=== PATIENT | male | born 2000 | race Caucasian/White ===

== ENCOUNTER → 2019-04-08 | Outpatient (CLI) | payer OTHER, SELFPAY ==
--- NOTE | 2019-04-08 10:24 | MRI_ITS ---
STUDY: MRI BILATERAL HIPS T PELVIS REASON FOR EXAM: Bilateral hip/sacroiliac pain, psoriatic arthritis for 10 years. TECHNIQUE: Standardized fat and water weighted pulse sequences were obtained in all 3 orthogonal planes. COMPARISON: Radiograph report 01/30/2012. FINDINGS: RIGHT HIP Normal hip joint without articular joint space narrowing. Normal right acetabulum. Normal right labrum. There is a small herniation pit at the lateral aspect of the right femoral head (inversion recovery coronal image 15). Normal right femoral neck and intratrochanteric region. Normal right gluteus minimus, medius and iliopsoas tendons and distal insertions. Normal right superior and inferior pubic rami. Normal right pubic symphysis. Normal right ischial tuberosity. Normal origin of the right hamstring tendons. There is osseous erosion of the right ilium adjacent to the sacroiliac joint (T1 axial image 14) with periarticular bone edema of the right sacroiliac joint (T2 axial images 9-15). Normal visualized soft tissue structures of the pelvis. LEFT HIP Normal left hip joint without articular joint space narrowing. Normal left acetabulum. Normal left labrum. Normal left femoral head. Normal left femoral neck and intratrochanteric region. Normal left gluteus minimus, medius and iliopsoas tendons and distal insertions. Normal left superior and inferior pubic rami. Normal left pubic symphysis. Normal left ischial tuberosity. Normal origin of the left hamstring tendons. There are small osseous erosions of the left sacroiliac joint (T1 axial image 15) and periarticular bone edema of the left sacroiliac joint (T2 axial images 10-15). Normal visualized soft tissue structures of the pelvis. MRI/Pelvis (Routine) IMPRESSION: Bilateral sacroiliitis with periarticular bone edema. Small herniation pit of the lateral aspect of the right femoral head. Electronically Signed: Allen Adames MD at 11:40 EDT Tel , Service support ,
== END | disposition home or self-care (01) ==
LOC: MRI 10:19
PROVIDERS: Family Provider Nurse Practitioner Family; PCP Nurse Practitioner Family; Referring Provider Internal Medicine Rheumatology; Visit Provider Internal Medicine Rheumatology
DX: M46.1 Sacroiliitis, not elsewhere classified (principal)
CPT/HCPCS: 72195

== ENCOUNTER → 2022-09-25 | Outpatient (CLI) | payer OTHER, SELFPAY ==
--- NOTE | 2022-09-25 15:04 | CT_ITS ---
STUDY: CT MAXILLOFACIAL SINUSES REASON FOR EXAM: Male, 22 years old. L NASAL POLYP RADIATION DOSAGE (If Supplied By Facility): CTDIvol = ( 33.06 ) mGy, DLP = ( 796.66 ) mGycm TECHNIQUE: The patient was scanned in a multi detector CT scanner. High resolution axial imaging was performed without the administration of intravenous contrast material. Sagittal and coronal images were reconstructed. Individualized dose optimization techniques were used for this CT. COMPARISON: None. FINDINGS: FRONTAL SINUSES: Normal aeration, without mucosal inflammatory disease. ETHMOIDAL SINUSES: There is mild mucosal thickening of the bilateral ethmoid sinuses. MAXILLARY SINUSES: There is fluid within the left side maxillary sinus or mucoid material. There is a diminutive appearance of the right maxillary sinus which may be developmental potentially posttraumatic. This is a nearly opacified. This is associated with a irregular appearance of the right side turbinate with a deviated or migrated appearance of the inferior turbinate towards the diminutive appearing wall of the right maxillary sinus. SPHENOIDAL SINUSES: There is mild mucoid thickening of the sphenoid sinuses. There is a narrowed appearance of the ostiomeatal unit on the right side. Normal bilateral middle turbinates. Normal bilateral inferior turbinates. There is rightward spur and nasal deviation which abuts middle turbinate with narrowing of the of the adjacent passageway. There is no visualized acute fracture. The mastoid air cells are clear. Temporomandibular joints are intact. The visualized bilateral orbital contents are normal. CT/Sinus/Facial Bone IMPRESSION: Moderate pansinusitis. Significant rightward nasal deviation and spur narrowing the right nasal passageway. Allowing for mucoid material and underlying smaller associated polyp is not included or excluded. The right side nasal spur abuts the mildly prominent right-sided middle turbinate. Recommend direct visualization. Electronically Signed: Johana Ventura MD at 16:59 EST Reading Location ID and State: [facility] / [place] Tel , Service support ,
== END | disposition home or self-care (01) ==
LOC: CT 14:59
PROVIDERS: PCP Nurse Practitioner Family; Visit Provider Otolaryngology
DX: J33.0 Polyp of nasal cavity (principal)
CPT/HCPCS: 70486

== ENCOUNTER 2025-01-19 16:12 | Emergency (ER) | payer OTHER, SELFPAY ==
[2025-01-19 16:16] VITALS: BP 130/72; PULSE 61; RESP 18; TEMP 36.6; O2SAT 100; BMI 19.1
[2025-01-19] MEDS: Ketorolac 15 MG/ML Vial IV (16:48)
--- NOTE | 2025-01-19 16:52 | ED.VIS.BACK ---
HPI History of Present Illness Chief Complaint: Back Informant: patient and spouse/S.O. Narrative Narrative: Presents ED concern for kidney stone. 2 days ago he states had 1 bout of nausea vomiting x 1 shortly afterwards felt pain left flank. Does not radiate. No troubles urinating. States had a temp of 100.6 orally at that time. No cough no dysuria no myalgias. Use ibuprofen yesterday. Pain has been constant. Sometimes worse with movement. Denies history of kidney stones. Denies history of gastric ulcers or kidney injury. Prior similar symptoms: No PFSH PFSH Medical History no medical history Allergy/AdvReac Type Severity Reaction Status Date / Time No Known Allergies Allergy Verified 01/19/25 16:16 Family History no significant family his Surgical History no surgical history Social History household members: spouse housing: house Smoking Status: Never smoker ROS ROS ED Constitutional Constitutional ED: Reports fever(s); Denies chills or sweats ENT ENT ED: Denies sore throat Cardiovascular Cardiovascular: Denies chest pain, leg edema, palpitations or racing heartbeat Respiratory/Chest Respiratory/Chest: Denies cough, dyspnea or dyspnea on exertion Gastrointestinal Gastrointestinal: Denies abdominal pain, diarrhea, nausea or vomiting Genitourinary Genitourinary ED: Denies dysuria, hematuria or urinary frequency Musculoskeletal Musculoskeletal: Reports back pain; Denies extremity pain or neck pain Integumentary Denies rash or wounds Neurologic Neurologic: Denies headache(s), paresthesias or weakness EXAM Physical Exam Const Vital Signs: 01/19/25 16:16 01/19/25 18:15 01/19/25 18:53 Temperature 98 F 97.9 F Temperature Source Oral Pulse Rate 61 75 75 Respiratory Rate 18 18 18 Blood Pressure 130/72 H 107/82 H 107/82 H Blood Pressure Mean 91 90 90 Pulse Ox 100 98 98 Oxygen Delivery Method Room Air Positive well nourished and well developed General Appearance ED: well developed and NAD HEENT Reports moist mucous membranes normocephalic and atraumatic Eyes General Eye ED: Yes normal appearance of both eyes Neck full ROM Chest Wall Chest: Negative for tenderness Resp normal respiratory effort and normal air movement Effort and Inspection: symmetric chest movement; Negative for respiratory distress Cardio regular rate, regular rhythm and no murmurs Peripheral Pulses: pulses 2+ throughout GI normal to inspection, nondistended, normoactive bowel sounds and non-tender Palpation: Negative for guarding or rebound tenderness present Back/Spine Back/Spine Narrative: Tender left flank no ecchymosis no rash. Extremity normal to inspection General Extremety ED: Negative for edema or tenderness General Extremity: Negative for edema Neuro oriented x3 and no sensory deficits noted Sensorium / Orientation: awake and alert Skin no rashes or lesions noted and no wounds MDM MDM MDM Narrative Medical decision making narrative: Interventions / MDM: Differential diagnosis: Musculoskeletal pain. Flank pain. Diagnosis considered but do not suspect: Kidney stone however CT negative. Pyelonephritis however CT and urine negative. My EKG interpretation: N/A Imaging independently reviewed and interpreted by myself: CT abdomen pelvis: No acute process moderate colonic stool burden. No kidney stones noted. Also read by radiology. External documents reviewed: N/A Test considered but not ordered:N/A ED course: Nontoxic vital stable. Concern for kidney stones. Renal stone protocol initiated labs urine. IV Toradol. CT scan for further evaluation. Workup negative. CT negative. Reported colonic stool burden. He reports bowel movements every day. Discussed likely musculoskeletal, he will use Tylenol or Motrin as needed. Monitor symptoms. Outpatient follow-up. All questions were answered. Re-evaluation: stable Disposition discussed with patient/family/significant other: Patient and significant other Case discussed with consulting clinician: N/A This note was generated with [employer] dictation software. It may contain incorrect words, spelling, and punctuation that were not noted in checking the note before signing. Lab Data Labs: Laboratory Results - last 24 hr 01/19/25 16:45 WBC 6.9 RBC 4.89 Hgb 14.2 Hct 41.9 MCV 85.7 MCH 29.0 MCHC 33.9 RDW Std Deviation 39.1 RDW Coeff of Ina 12.6 Plt Count 314 MPV 9.8 Immature Gran % (Auto) 0.300 Neut % (Auto) 36.2 L Lymph % (Auto) 35.4 [place] % (Auto) 19.4 H Eos % (Auto) 7.7 H Baso % (Auto) 1.0 Absolute Neuts (auto) 2.5 Absolute Lymphs (auto) 2.45 Nucleated RBC % 0 Differential Comment SCANNED Sodium 137 Potassium 3.9 Chloride 100 Carbon Dioxide 27.4 Anion Gap 10 BUN 14 Creatinine 0.92 Estim Creat Clear Calc 103.75 Est GFR (MDRD) Non-Af 118 BUN/Creatinine Ratio 15.6 Glucose 94 Calcium 9.2 Urine Color Straw Urine Clarity Clear Urine pH 8.0 Ur Specific [place] 1.015 Urine Protein 15 H Urine Glucose (UA) Normal Urine Ketones Negative Urine Occult Blood Negative Urine Nitrite Negative Urine Bilirubin Negative Urine Urobilinogen Normal Ur Leukocyte Esterase Negative Urine RBC 0 SEEN Urine WBC 0 SEEN Ur Squamous Epith Cells 0 SEEN Urine Bacteria 1+ Urine Mucus 0 SEEN Radiography Diagnostic Testing: Clinical Impression(s) from Imaging Studies Abdomen/Pelvis CT 01/19/25 17:10 IMPRESSION: *No acute findings in the abdomen and pelvis. *No evidence of nephrolithiasis or hydronephrosis. *Moderate colonic stool. [facility] Discharge Plan Triage Chief Complaint: Back ED Provider: Cal Powers Dx/Rx/DC Orders Clinical Impression: Left flank pain, Musculoskeletal back pain Instructions: ED Back Sprain/Strain Stand Alone Forms: ED Work / School Excuse Primary Care Provider: Patricia Archer NP Referrals: Patricia Archer NP, [employer]CH[employer]IC-[employer] [Primary Care Provider] - 1-2 Weeks Activity Restrictions/Additional Instructions: CT scan no kidney stones. Labs urine negative. Continue Motrin 600 mg every 6 hours for pain as needed. Follow-up with your doctor. Print Language: [place] Disposition Disposition: Home, Self Care Discharge Date/Time: 01/19/25 18:55
[2025-01-19 17:00] LABS: Mucous, Urine 0 SEEN /hpf (<or=2+); Red Blood Cells-Urine 0 SEEN /hpf (0-5); Squamous Epithelial Cells - UA 0 SEEN /hpf (0-5); White Blood Cells 0 SEEN /hpf (0-5)
[2025-01-19 17:06] LABS: Absolute Lymphocyte Count 2.45 X10^3/uL (0.83-4.51); Absolute Neutrophil Count 2.5 X10^3/uL (2.0-7.7); Basophil# 0.07 X10^3/uL; Eosinophil# 0.53 X10^3/uL; Eosinophils% 7.7 % (0-5); Hematocrit 41.9 % (40-54); Hemoglobin 14.2 g/dL (13.0-16.5); Lymphocyte # 2.45 X10^3/ul (0.83-4.51); Lymphocyte % 35.4 % (19-41); Mean Corp Hgb Conc 33.9 g/dL (32-36); Mean Corpuscular Volume 85.7 fL (80-94); Mean Platelet Vol. 9.8 fl (6.2-12.0); Monocyte# 1.34 X10^3/uL; Monocyte% 19.4 % (0-10); NRBC Flagged by Analyzer 0 % (0-5); Neutrophil # 2.51 X10^3/uL (2.7-7.7); Neutrophil % 36.2 % (47-70); POSITIVE MORPHOLOGY YES; Platelet Count 314 K/mm3 (150-450); RBC Distribution Width CV 12.6 % (11.6-14.6); RBC Distribution Width SD 39.1 fl (35.1-43.9); Red Blood Count 4.89 M/mm3 (4.6-6.2); White Blood Count 6.9 K/mm3 (4.4-11.0)
--- NOTE | 2025-01-19 17:10 | CT_ITS ---
PROCEDURE: ABDOMEN/PELVIS WITHOUT CONT 01/19/2025 REASON FOR EXAM: KIDNEY STONE TECHNIQUE: Abdomen and pelvis CT without intravenous contrast. Noncontrast technique limits evaluation of the abdominal and pelvic viscera. Coronal and Sagittal reconstruction series were provided. One or more dose reduction techniques were used (e.g., Automated exposure control, adjustment of the mA and/or kV according to patient size, use of iterative reconstruction technique). PATIENT PREPARATION: Per protocol ORAL CONTRAST TYPE: None. AMOUNT: mL COMPARISON: None FINDINGS: Lung bases: Unremarkable Liver: Normal size. No obvious mass. Gallbladder: No cholelithiasis or wall thickening. Spleen: Normal size. Pancreas: Normal size. No surrounding inflammation. Adrenals: Unremarkable Kidneys: No urolithiasis. No hydronephrosis. Bladder: Urinary bladder is unremarkable. Reproductive Organs: No pelvic mass. Bowel: Stomach is unremarkable. No bowel dilation or wall thickening. Moderate colonic stool. Appendix: Normal appendix. Lymph nodes: No suspicious adenopathy. Vasculature: The abdominal aorta and IVC contours are normal. Noncontrast technique limits evaluation. Peritoneum / Retroperitoneum: No ascites. No pneumoperitoneum. Bones: No suspicious osseous lesions. Soft tissues are unremarkable. CT/Abdomen/Pelvis without Cont IMPRESSION: *No acute findings in the abdomen and pelvis. *No evidence of nephrolithiasis or hydronephrosis. *Moderate colonic stool. Reading [facility]
[2025-01-19 17:12] LABS: Color, Urine Straw (Yellow); Glucose, Dipstick Normal (Normal); Ketone-Dipstick Negative (Negative); Leukocyte Esterase-Dipstick Negative /ul (Negative); Nitrite-Dipstick Negative (Negative); Occult Blood-Urine Negative /ul (Negative); Protein-Dipstick 15 mg/dl (Negative); Specific Gravity, Urine 1.015 (1.002-1.030); Urine Bilirubin Dipstick Negative (Negative); Urine Clarity Clear (Clear); Urine Urobilinogen Normal (Normal)
[2025-01-19 17:22] LABS: Differential Indicated SCAN CRITERIA MET
[2025-01-19 17:36] LABS: Anion Gap 10 (5-15); BUN 14 mg/dL (4-19); BUN/Creat Ratio 15.6 RATIO (10-20); Calcium,Total 9.2 mg/dL (7.6-11.0); Carbon Dioxide 27.4 mmol/L (21.0-32.0); Chloride 100 mmol/L (98-108); Creatinine, Serum 0.92 mg/dL (0.70-1.20); EST Glomerular Filtration Rate 118 (>60); Estimated Creatinine Clearance 103.75 ml/min (50-250); Glucose 94 mg/dL (70-99); Potassium 3.9 mmol/L (3.3-5.1); Sodium Level 137 mmol/L (133-145)
[2025-01-19 18:11] LABS: Differential Comment SCANNED
[2025-01-19 18:15] VITALS: BP 107/82; PULSE 75; RESP 18; O2SAT 98
[2025-01-19 18:22] LABS: Bacteria 1+ /hpf (None Seen)
[2025-01-19 18:53] VITALS: BP 107/82; PULSE 75; RESP 18; TEMP 36.6; O2SAT 98
== END 2025-01-19 18:55 | disposition home or self-care (01) ==
PROVIDERS: Emergency Provider Emergency Medicine; PCP Nurse Practitioner Family; Visit Provider Emergency Medicine
DX: R10.9 Unspecified abdominal pain (principal); M54.9 Dorsalgia, unspecified
CPT/HCPCS: 74176; 80048; 81001; 85025; 96374; 99282; A4216

== ENCOUNTER → 2025-02-13 | Outpatient (CLI) | payer OTHER, SELFPAY ==
[2025-02-13 15:42] LABS: Absolute Lymphocyte Count 2.49 X10^3/uL (0.83-4.51); Absolute Neutrophil Count 6.3 X10^3/uL (2.0-7.7); Basophil# 0.11 X10^3/uL; Basophil% 0.9 % (0-1); Eosinophil# 1.02 X10^3/uL; Eosinophils% 8.7 % (0-5); Hematocrit 40.1 % (40-54); Hemoglobin 13.5 g/dL (13.0-16.5); Lymphocyte # 2.49 X10^3/ul (0.83-4.51); Lymphocyte % 21.3 % (19-41); Mean Corp Hgb Conc 33.7 g/dL (32-36); Mean Corpuscular Hgb 28.4 pg (27.0-32.0); Mean Corpuscular Volume 84.4 fL (80-94); Mean Platelet Vol. 9.7 fl (6.2-12.0); Monocyte# 1.63 X10^3/uL; NRBC Flagged by Analyzer 0 % (0-5); Neutrophil # 6.33 X10^3/uL (2.7-7.7); Neutrophil % 54.3 % (47-70); POSITIVE DIFFERENTIAL YES; Platelet Count 374 K/mm3 (150-450); RBC Distribution Width CV 12.9 % (11.6-14.6); RBC Distribution Width SD 39.9 fl (35.1-43.9); Red Blood Count 4.75 M/mm3 (4.6-6.2); White Blood Count 11.7 K/mm3 (4.4-11.0)
[2025-02-13 15:59] LABS: Differential Indicated SCAN CRITERIA MET
[2025-02-13 16:11] LABS: ALB/GLOB Ratio 1.1 RATIO (0.9-2.4); AST(SGOT) 13 U/L (<=37); Alanine Aminotransfer ALT/SGPT 10 U/L (<=46); Albumin, Serum 4.2 g/dL (3.5-5.0); Alkaline Phosphatase 98 U/L (40-129); Anion Gap 13 (5-15); BUN 11 mg/dL (4-19); BUN/Creat Ratio 12.2 RATIO (10-20); Calcium,Total 9.8 mg/dL (7.6-11.0); Carbon Dioxide 25.2 mmol/L (21.0-32.0); Chloride 98 mmol/L (98-108); Cholesterol 156 mg/dL (<=200); Creatinine, Serum 0.88 mg/dL (0.70-1.20); EST Glomerular Filtration Rate 122 (>60); Globulin 3.8 g/dL (2.2-4.2); Glucose 81 mg/dL (70-99); High Density Lipoprotein 38 mg/dL; Low Density Lipoprotein Calc. 105 mg/dL; Potassium 3.7 mmol/L (3.3-5.1); Sodium Level 136 mmol/L (133-145); Total Bilirubin 0.34 mg/dL (0.00-1.30); Triglycerides 65 mg/dL; Very Low Density Lipoprotein 13 mg/dL (5-40); cholesterol:hdl ratio screen 4.12
[2025-02-13 16:36] LABS: Platelet Morphology LARGE
[2025-02-16 07:07] LABS: Endomysial Antibody IgA Negative (Negative); Immunoglobulin A 378 mg/dL (90-386); t-Transglutaminase IgA 2 U/mL (0-3)
== END | disposition home or self-care (01) ==
LOC: LAB 13:27
PROVIDERS: PCP Nurse Practitioner Family; Referring Provider Nurse Practitioner Family; Visit Provider Nurse Practitioner Family
DX: Z00.01 Encounter for general adult medical examination with abnormal findings (principal); R10.9 Unspecified abdominal pain
CPT/HCPCS: 36415; 80053; 80061; 82784; 83516; 85025; 86255

== ENCOUNTER → 2025-02-14 | Outpatient (CLI) | payer OTHER, SELFPAY | END | disposition home or self-care (01) | PROVIDERS: PCP Nurse Practitioner Family; Referring Provider Nurse Practitioner Family; Visit Provider Nurse Practitioner Family | DX: R19.7 Diarrhea, unspecified (principal) | CPT/HCPCS: 83630; 87177; 87209; 87493; 87506 ==

== ENCOUNTER 2025-03-02 15:24 | Emergency (ER) | payer OTHER, SELFPAY ==
[2025-03-02 15:24] VITALS: BP 126/89; PULSE 97; RESP 16; TEMP 37.1; O2SAT 100; BMI 16.7
[2025-03-02] MEDS: 0.9% Normal Saline (1000mL) 1,000 ML 1000 ML IV (16:03)
[2025-03-02] MEDS: Ondansetron 4 MG/2 ML Vial IV (16:03)
[2025-03-02 16:14] LABS: Absolute Lymphocyte Count 2.34 X10^3/uL (0.83-4.51); Basophil# 0.09 X10^3/uL; Basophil% 0.4 % (0-1); Eosinophils% 6.2 % (0-5); Lymphocyte # 2.34 X10^3/ul (0.83-4.51); Lymphocyte % 10.3 % (19-41); Mean Corp Hgb Conc 34.2 g/dL (32-36); Mean Corpuscular Hgb 28.6 pg (27.0-32.0); Mean Corpuscular Volume 83.7 fL (80-94); Monocyte# 3.64 X10^3/uL; Monocyte% 16.1 % (0-10); NRBC Flagged by Analyzer 0 % (0-5); Neutrophil # 15.02 X10^3/uL (2.7-7.7); Neutrophil % 66.2 % (47-70); POSITIVE DIFFERENTIAL YES; POSITIVE MORPHOLOGY YES; Platelet Count 632 K/mm3 (150-450); RBC Distribution Width CV 13.2 % (11.6-14.6); RBC Distribution Width SD 40.2 fl (35.1-43.9); Red Blood Count 4.54 M/mm3 (4.6-6.2); White Blood Count 22.7 K/mm3 (4.4-11.0)
--- NOTE | 2025-03-02 16:16 | EDS_ITS ---
HPI History of Present Illness Chief Complaint: Abd Pain Detail of Chief Complaint: Abdominal pain, diarrhea and unintentional weight loss Informant: patient Onset/Context/Timing Onset: Month(s) (Approximately 1 month) Context: Sudden Onset Timing: Intermittent and Waxes and wanes Quality: gnawing discomfort Location: Generalized Current Severity: Mild Maximum Severity: Moderate Worsened by: If he eats or drinks anything Relieved by: Not been Associated Symptoms Associated Symptoms: HPI narrative for complete detail Narrative Narrative: Patient is a 24-year-old male. He has history of psoriatic arthritis on no medication and ankylosing spondylitis who presents with a gnawing generalized abdominal discomfort that started approximate month ago with diarrhea up to 20 times per day. There is no family history of Crohn's or ulcerative colitis. There is a paternal grandmother with history of colon cancer. Age of diagnosis is unknown. Patient presents because of feeling generalized weakness with no energy to get up. He does endorse intermittent orthostatic symptoms. He does endorse thirst and dry mouth. Patient denies decreased urine output. Patient not been able to work since last February 23. Patient does have night sweats. He denies bone pain other than bilateral hip pain due to his psoriatic arthritis. He is on no medication because he was without insurance until recently. He was seen by nurse practitioner at Dr. Odell's office. Note authored by LAM Gomez was reviewed. Patient did have stool studies which were unremarkable other than elevated white count. He is scheduled for a colonoscopy this coming Thursday. Based on her note there is a history of ulcerative colitis in the family. Patient has intermittent headache. He denies double vision blurred vision loss of vision. There is no trouble with his hearing. He denies cardiac or respiratory symptoms. He has had mucus in his stool for some time. He had a colonoscopy approximately 6 years ago because of blood in his stool. To his knowledge it was unremarkable. Prior similar symptoms: Yes Recent Illness/Hospitalization: Yes PFSH PFSH Home Medications ?Medication ?Instructions ?Recorded ?Last Taken ?Type budesonide 9 mg tablet,delayed and 9 mg PO QAM 5 Unknown History extended release amoxicillin 875 mg-potassium 875 mg PO Q12H #14 TABLET S 03/02/25 Unknown Rx clavulanate 125 mg tablet prednisone 20 mg tablet 40 mg (2 x 20 mg) PO DAILY # 20 03/02/25 Unknown Rx TABLETS Allergy/AdvReac Type Severity Reaction Status Date / Time No Known Allergies Allergy Verified 03/02/25 15:24 Social History household members: spouse housing: house Smoking Status: Never smoker ROS ROS ED Constitutional Constitutional ED: Reports sweats and weight loss; Denies chills, fever(s) or subjective Eyes Eyes: Denies blurry vision or change in vision ENT ENT ED: Denies rhinorrhea or sore throat Cardiovascular Cardiovascular: Denies chest pain or palpitations Respiratory/Chest Respiratory/Chest: Denies cough, dyspnea or dyspnea on exertion Gastrointestinal Gastrointestinal: Reports abdominal pain, diarrhea, nausea and other Details: Nausea started past several days. Episode of vomiting this morning. ; Denies constipation, melena or vomiting Genitourinary Genitourinary ED: Denies dysuria, hematuria or urinary frequency Musculoskeletal Musculoskeletal: Reports other Details: Bilateral hip pain due to psoriatic arthritis. ; Denies arthralgias, back pain, myalgias or neck pain Integumentary Denies rash Neurologic Neurologic: Reports weakness; Denies headache(s) or paresthesias Hematologic/Lymphatic Hematologic/Lymphatic: Reports systems reviewed and no addt'l complaints, except as documented EXAM Physical Exam Const Vital Signs: 03/02/25 15:24 03/02/25 16:45 03/02/25 16:46 Temperature 98.8 F Temperature Source Oral Pulse Rate 97 72 Pulse Rate [Lying] 71 Pulse Rate [Sitting (for 1 minute prior to obtaining)] 64 Pulse Rate [Standing (for 1 minute prior to obtaining)] 75 Respiratory Rate 16 16 Blood Pressure 126/89 H Blood Pressure [Lying] 121/65 H Blood Pressure [Sitting (for 1 minute prior to obtaining)] 127/79 H Blood Pressure [Standing (for 1 minute prior to obtaining)] 119/76 Blood Pressure Mean 101 Blood Pressure Mean [Lying] 83 Blood Pressure Mean [Sitting (for 1 minute prior to obtaining)] 95 Blood Pressure Mean [Standing (for 1 minute prior to obtaining)] 90 Pulse Ox 100 100 Oxygen Delivery Method Room Air 03/02/25 17:12 Temperature Temperature Source Pulse Rate 72 Pulse Rate [Lying] Pulse Rate [Sitting (for 1 minute prior to obtaining)] Pulse Rate [Standing (for 1 minute prior to obtaining)] Respiratory Rate 18 Blood Pressure 138/73 H Blood Pressure [Lying] Blood Pressure [Sitting (for 1 minute prior to obtaining)] Blood Pressure [Standing (for 1 minute prior to obtaining)] Blood Pressure Mean 94 Blood Pressure Mean [Lying] Blood Pressure Mean [Sitting (for 1 minute prior to obtaining)] Blood Pressure Mean [Standing (for 1 minute prior to obtaining)] Pulse Ox 99 Oxygen Delivery Method Room Air Positive well developed; Negative for obese, contractures or unkempt Constitutional Narrative: Patient appears ill. He has temporal wasting. He very thin. BMI is 16. General Appearance ED: well developed and pallor; Negative for unkempt, contractures, cyanotic or diaphoretic Nutritional Appearance: Negative for obese HEENT HEENT Narrative: Head is atraumatic and normocephalic. There is temporal wasting. Ears normal. Nares patent. Posterior pharynx is normal. Eyes PERRL and EOMs intact bilaterally General Eye ED: Negative for pale conjunctiva or scleral icterus Neck no lymphadenopathy, supple and no JVD Chest Wall inspection of chest normal and palpation of chest normal Resp normal respiratory effort and clear to auscultation bilaterally Cardio regular rate, regular rhythm, S1 normal heart sound, S2 normal heart sound and no murmurs GI normal to inspection, nondistended, normoactive bowel sounds, non-distended and no masses; Negative for non-tender or hepatosplenomegaly Palpation: soft Extremity normal to inspection General Extremety ED: Negative for edema or tenderness General Extremity: Negative for edema Neuro oriented x3, CN's II-XII intact bilaterally and no sensory deficits noted Sensorium / Orientation: alert Psych mental status grossly normal Appearance: Negative for unkempt Skin no rashes or lesions noted, no wounds and skin turgor normal General Skin Exam: elasticity normal and pallor; Negative for jaundice MDM MDM MDM Narrative Medical decision making narrative: Differential diagnoses include inflammatory bowel disorder Crohn's versus ulcerative colitis. Infectious causes of been ruled out. He had a stool panel done that was negative for bacterial causes as well as C. difficile. Will obtain electrolytes to assess renal function, CO2 anion gap and his electrolytes and specifically potassium. If potassium is low we will obtain a magnesium level. History & Record Review Additional record(s) reviewed:: Prior outpatient record (LAM Gomez's note from Dr. Odell's office was reviewed. Office visit was February 28.) Lab Data Attestation: I reviewed the patient's lab results. Lab results narrative: Patient has elevated white count of 22.7 thousand. Differential reveals 66 segs which is normal. Lymphocytes is low at 10 and monocytes is elevated at 16. Comprehensive metabolic panel is unremarkable. Glucose is 104 which is slightly above normal with a normal CO2 anion gap. Transaminases are normal. Albumin is normal. Labs: Laboratory Results - last 24 hr 03/02/25 15:40 WBC 22.7 H RBC 4.54 L Hgb 13.0 Hct 38.0 L MCV 83.7 MCH 28.6 MCHC 34.2 RDW Std Deviation 40.2 RDW Coeff of Ina 13.2 Plt Count 632 H MPV 9.0 Immature Gran % (Auto) 0.800 Neut % (Auto) 66.2 Lymph % (Auto) 10.3 L [place] % (Auto) 16.1 H Eos % (Auto) 6.2 H Baso % (Auto) 0.4 Absolute Neuts (auto) 15.0 H Absolute Lymphs (auto) 2.34 Nucleated RBC % 0 Sodium 134 Potassium 3.6 Chloride 96 L Carbon Dioxide 24.7 Anion Gap 14 BUN 9 Creatinine 0.85 Estim Creat Clear Calc 98.35 Est GFR (MDRD) Non-Af 123 BUN/Creatinine Ratio 11.0 Glucose 104 H Calcium 9.3 Total Bilirubin 0.44 AST 10 ALT 8 Alkaline Phosphatase 90 Total Protein 7.8 Albumin 3.6 Globulin 4.3 H Albumin/Globulin Ratio 0.8 L Management Discussion w/another healthcare provider: Hvac Project Engineer (In light of the elevated white count and the fact that he is seen by Dr. Cass Odell was paged to discuss case. Suspect he is able to go home. Patient was informed of his results. Dr. Odell recommended Augmentin 875 mg twice daily and 40 mg of prednisone daily. He received a dose of Solu-) Treatment and Re-Evaluation :: Orthostatic vital signs were normal. Discharge Plan Triage Chief Complaint: Abd Pain ED Provider: Zi Wilkins Dx/Rx/DC Orders Clinical Impression: Chronic diarrhea, Abdominal pain, Unintentional weight loss of more than 10 pounds, Leukocytosis, Dehydration, mild Instructions: ED Diarrhea, Unknown Cause Prescriptions: New prednisone 20 mg tablet 40 mg PO DAILY Qty: 20 0RF amoxicillin-pot clavulanate 875-125 mg tablet 875 mg PO Q12H Qty: 14 0RF No Action budesonide 9 mg tablet,delayed and ext.release 9 mg PO QAM Primary Care Provider: Eve Milian Referrals: Blair Odell DO [Med Staff - Active Staff] - Keep Oleksandr appointment Eve Milian, [employer] [Primary Care Provider] - Print Language: Tajik Disposition Disposition: Home, Self Care
[2025-03-02 16:22] LABS: ALB/GLOB Ratio 0.8 RATIO (0.9-2.4); AST(SGOT) 10 U/L (<=37); Alanine Aminotransfer ALT/SGPT 8 U/L (<=46); Albumin, Serum 3.6 g/dL (3.5-5.0); Alkaline Phosphatase 90 U/L (40-129); Anion Gap 14 (5-15); BUN 9 mg/dL (4-19); Calcium,Total 9.3 mg/dL (7.6-11.0); Carbon Dioxide 24.7 mmol/L (21.0-32.0); Chloride 96 mmol/L (98-108); Creatinine, Serum 0.85 mg/dL (0.70-1.20); EST Glomerular Filtration Rate 123 (>60); Estimated Creatinine Clearance 98.35 ml/min (50-250); Globulin 4.3 g/dL (2.2-4.2); Glucose 104 mg/dL (70-99); Potassium 3.6 mmol/L (3.3-5.1); Protein, Total 7.8 g/dL (5.9-8.4); Sodium Level 134 mmol/L (133-145); Total Bilirubin 0.44 mg/dL (0.00-1.30)
[2025-03-02 16:32] LABS: Differential Indicated SCAN CRITERIA MET
[2025-03-02 16:45] VITALS: PULSE 72; RESP 16; O2SAT 100
[2025-03-02 16:46] VITALS: BP 119/76; BP 121/65; BP 127/79; PULSE 64; PULSE 71; PULSE 75
[2025-03-02 17:12] VITALS: BP 138/73; PULSE 72; RESP 18; O2SAT 99
[2025-03-02 18:04] LABS: Platelet Estimate MKD INC (ADEQ)
[2025-03-02 18:12] VITALS: BP 138/73; PULSE 74; RESP 16; TEMP 36.2; O2SAT 100
[2025-03-02] MEDS: Amox/Clavulanate 875 MG Tablet PO (18:12)
[2025-03-02] MEDS: MethylPREDNISolone 125 MG/2 ML Vial IV (18:12)
== END 2025-03-02 18:14 | disposition home or self-care (01) ==
PROVIDERS: Emergency Provider Emergency Medicine; PCP Nurse Practitioner Family; Visit Provider Emergency Medicine
DX: K52.9 Noninfective gastroenteritis and colitis, unspecified (principal); L40.50 Arthropathic psoriasis, unspecified; R63.4 Abnormal weight loss; D72.829 Elevated white blood cell count, unspecified; E86.0 Dehydration; R51.9 Headache, unspecified; Z68.1 Body mass index [BMI] 19.9 or less, adult
CPT/HCPCS: 80053; 85025; 96361; 96374; 99284; A4216; J2405

== ENCOUNTER 2025-03-08 05:56 | Day surgery (SDC) | payer OTHER, SELFPAY ==
[2025-03-08] VITALS (10 sets, daily range): BP systolic 109–128; BP diastolic 75–90; PULSE 47–85; RESP 16–17; TEMP 36.2–36.9; O2SAT 99–100; BMI 15.5
[2025-03-08] MEDS: Lactated Ringers 1,000 ML 15 ML IV (06:51)
--- NOTE | 2025-03-08 07:00 | COLBX_PTH ---
PATIENT: LIAM MILIAN LOC: EN U#:[id number] AGE/SX: 24/M ROOM: RE03/08/[address]: Dr. Blair Odell DO : 2000 BED: DIS: 03/08/2025 SPEC #: [id number] RECD: 03/08/25 08:09 STATUS: [place] REApollo #: [id number] KRISTY: 03/08/25 07:[address]: Blair Odell DEPT: SURGICAL PATHOLOGY RECD BY: Eleazar Bella ENTERED: 03/08/25 08:59 SP TYPE: COLON BX OTHR DR: Eve Milian, COKE HANDLING SUPERVISOR-C Tissues: A - COLON BIOPSY B - COLON BIOPSY C - Rectum, NOS Procedures: Immunohistochemical Stains Surgery Specimen Level IV HEADER OPERATION: Colonoscopy and biopsy PRE-OP DIAGNOSIS: Chronic diarrhea, lower GI bleeding, weight loss TISSUE SUBMITTED: A- Right side colon and cecum biopsy, B- Left side colon biopsy, C- Rectal biopsy MICROSCOPIC DIAGNOSIS A. Colon, right side and cecum, biopsy: * Colonic mucosa with acute inflammation, ulceration, and mild crypt distortion - see Comment. * No granulomas or dysplasia seen. * IHC for CMV is negative. B. Colon, left side, biopsy: * Colonic mucosa with acute inflammation, ulceration, and mild crypt distortion - see Comment. * No granulomas or dysplasia seen. * IHC for CMV is negative. C. Rectum, biopsy: * Colonic mucosa with acute inflammation, superficial erosion, moderate crypt distortion and basilar lymphoplasmacytosis - see Comment. * No granulomas or dysplasia seen. * IHC for CMV is negative. COMMENT: The histologic differential diagnosis includes infection, medication injury, and early/evolving inflammatory bowel disease. Recommend correlation with clinical, endoscopic, microbiology, and imaging findings. MICROSCOPIC DESCRIPTION Slides are reviewed. All matched controls reacted appropriately. These tests were developed and their performance characteristics determined by [facility]. They may not have been cleared or approved by the U.S. Food and Drug Administration. The FDA has determined that such clearance or approval is not necessary.? The above immunohistochemical/dualISH?markers are ordered and reviewed by the Pathologist. GROSS DESCRIPTION A. Received in formalin in a container labeled with the patient's name, date of , and biopsy right side of colon and cecum are multiple alonzo-pink fragments of mucosal tissue measuring 1.3 x 0.7 x 0.2 cm in aggregate. Submitted in toto in A1. B. Received in formalin in a container labeled with the patient's name, date of , and biopsy left side of colon are multiple alonzo-pink fragments of mucosal tissue measuring 2.0 x 0.5 x 0.2 cm in aggregate. Submitted in toto in B1. C. Received in formalin in a container labeled with the patient's name, date of , and rectal biopsy are 2 alonzo-pink fragments of mucosal tissue, each measuring 0.3 x 0.2 x 0.2 cm. Submitted in toto in C1. [facility] 03-08-2025 CPT:36176u6,08273g3
--- NOTE | 2025-03-08 07:14 | PRE.ANES_ITS ---
ASA Classification* ASA Classification ASA Classification: 2 Assessment & Plan Anesthesia* Anesthesia Assessment Anesthesia Assessment: Discussed sedation and/or anesthesia options, risks, benefits, and alternatives with patient/parents/legal guardian/POA. Questions invited. The patient/parents/legal guardian/POA seems to understand and agrees to proceed with anesthesia plan. Reviewed the physical assessment, medical history, allergy history and patient home medications list prior to surgery/procedure/anesthetic and documented any changes. Performed airway and anesthesia risk assessments. Anesthesia Type Anesthesia Type: MAC History Source History Obtained from:: Patient and Chart Anesthesia Focused Assessment* Temperature: 97.8 F Pulse Rate: 85 Blood Pressure: 128/90 Respiratory Rate: 17 Pulse Ox: 100 Oxygen Delivery Method: Room Air Airway Assessment Mouth opens: >3 cm Mallampati Score: I Teeth Condition: Intact Neck Range of motion (ROM): Full ROM Focused Labs Anesthesia Preop lab: CBC WBC 22.7 K/mm3 (4.4-11.0) H 03/02/25 15:40 5 RBC 4.54 M/mm3 (4.6-6.2) L 03/02/25 15:40 03/02/25 Hgb 13.0 g/dL (13.0-16.5) 03/02/25 15:40 03/02/25 Hct 38.0 % (40-54) L 03/02/25 15:40 03/02/25 Plt Count 632 K/mm3 (150-450) H 03/02/25 15:40 03/02/25 CHEMISTRY Potassium 3.6 mmol/L (3.3-5.1) 03/02/25 15:40 03/02/25 Sodium 134 mmol/L (133-145) 03/02/25 15:40 03/02/25 BUN 9 mg/dL (4-19) 03/02/25 15:40 03/02/25 Creatinine 0.85 mg/dL (0.70-1.20) 03/02/25 15:40 03/02/25 Glucose 104 mg/dL (70-99) H 03/02/25 15:40 03/02/25 COAG Pre-Assessment Diagnosis/Proposed Procedure Planned Operative Procedure(s): COLONOSCOPY Anesthesia History 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 When Was Last Pacemaker Check QUESTION #4 FULL TEXT: You/Your Family Experience fever (hyperthermia) with Anesthesia Last Oral Intake Last Oral intake: Last Oral Intake NPO since 03:30 03/08/25 06:43 Meds taken in AM with sips of No 03/08/25 06:43 water? Meds patient instructed to take am of surgery PONV PONV - circuit board repair technician: PONV - circuit board repair technician Female No 03/03/25 14:07 HX of Motion Sickness No 03/03/25 14:07 HX of N/V After Surgery No 03/03/25 14:07 Non-Smoker Yes 03/03/25 14:07 Duration of Surgery greater No 03/03/25 14:07 than 60 minutes Number of Risk Factors 1 03/03/25 14:07 PONV Score Low Risk 03/03/25 14:07 Height & Weight Height & Weight: Anesthesia: Height & Weight Height 5 ft 10 in 03/08/25 06:43 Weight: 49 kg 03/08/25 06:43 Body Mass Index (BMI) 15.5 03/08/25 06:43 Respiratory Assessment Respiratory Assessment - circuit board repair technician: Respiratory Tract Infection Hx - circuit board repair technician Hx Respiratory Tract Infection No 03/03/25 14:07 STOP Sleep Apnea STOP Sleep Apnea - circuit board repair technician: STOP Sleep Apnea - circuit board repair technician Hx Hypertension No 03/03/25 14:07 Hx Sleep Apnea No 03/03/25 14:07 CPAP BIPAP Do you snore loudly (louder Yes 03/03/25 14:07 than talking or can be heard Do you often feel tired/ Yes 03/03/25 14:07 fatigued/ sleepy during daytime? Has anyone observed you stop Yes 03/03/25 14:07 breathing during sleep? STOP Results Positive 03/03/25 14:07 QUESTION #5 FULL TEXT : Do you snore loudly (louder than talking or can be heard through closed doors)? Tobacco Use History Tobacco Use History - circuit board repair technician: Tobacco Use History - circuit board repair technician Tobacco Use Smoking Status Former smoker 03/03/25 14:07 Hx Tobacco Use No 03/03/25 14:07 Years Smoking Packs Smoked per Day Smoking Cessation Date was No - quit smoking greater 03/03/25 14:07 within the last 15 years than 15 years ago Hx Smoking Cessation Date Hx Smoking Cessation Counseling Hematologic Medial History Hematologic Hx - circuit board repair technician: Hematologic Medical Hx - clinical documentation spec Hx of Blood Transfusion No 03/03/25 14:07 Hx of Transfusion in last 3 No 03/03/25 14:07 Months Date of Last Transfusion (if within last 3 months) Ever experience any problems No 03/03/25 14:07 with transfusion(s)? Specify any problems Hx of Preganancy in last 3 N/A 03/03/25 14:07 Months Nurse Filling Out Transfusion MGRIFFITH 03/03/25 14:07 & Questions: Date: 03/03/25 03/03/25 14:07 Time: 14:09 03/03/25 14:07 Patient unable to answer at this time (ie. confused, unrespo /Reproduction History /Reproductive History - circuit board repair technician: /Reproductive Hx- circuit board repair technician Hx Now Gestational Age (in weeks): EDC: Hx Hx Para Hx Section SAB Active Medications Active Medications: Current Medications Generic Name Dose Route Start Last Admin Trade Name Freq PRN Reason Stop Dose Admin Lactated Ringer's 1,000 mls @ 15 mls/hr 03/08/25 06:30 03/08/25 06:51 IV 15 mls/hr .Q48H MARZENA Administration PFSH Medical History History of steroid therapy Wears contact lenses Wears glasses Alcohol use Ankylosing spondylitis Psoriatic arthritis History of GI bleed Former smoker Home Medications ?Medication ?Instructions ?Recorded ?Last Taken ?Type amoxicillin 875 mg-potassium 875 mg PO Q12H #14 TABLET S 03/02/25 03/07/25 Rx clavulanate 125 mg tablet prednisone 20 mg tablet 20 mg PO BID 03/03/25 History Allergy/AdvReac Type Severity Reaction Status Date / Time No Known Allergies Allergy Verified 03/08/25 06:42 Surgical History History of colonoscopy History of rhinoplasty Social History household members: spouse housing: house Smoking Status: Former smoker Review of Systems (Anesthesia) ROS Narrative System reviewed and no additional complaints, except as documented.
--- NOTE | 2025-03-08 07:23 | PCM.HP.STD ---
HPI - General General Date of Admission: 03/08/25 Date of Service: 03/08/25 Chief Complaint: Chronic diarrhea, weight loss and lower GI bleeding HPI Narrative LIAM DOBBINS, is a 24 M who presents for the evaluation of chronic diarrhea, weight loss and lower GI bleeding. [facility] ED 01.19.25 with concern for kidney stone. N/v and left sided flanks pain. Work up unremarkable CT abd/pelvis 01.19.25: *No acute findings in the abdomen and pelvis. *No evidence of nephrolithiasis or hydronephrosis. *Moderate colonic stool. Referred to [facility] from PCP for 3 weeks of bloody diarrhea and abdominal cramping. Pt endorses weight loss. Minimal relief with dicyclomine, cipro and budesonide. Hx of psoriatic arthritis and ankylosing spondylitis. On Humira but discontinues a few months ago. Enbrel for 10 years. Stool 5.6.25; lactoferrin positive, enteric path negative, c.dif negative OV 5.20.25 Pt endorses loose stool for about 3 weeks. He is having up to 20 loose stools per day. This is waking up him out of his sleep. It is not post prandial. He endorses a 10-15 lbs weight loss over this time. Prior to this, he was having a daily formed stool with no GI symptoms. He has a family hx of UC and personal hx of autoimmune conditions including psoriatic arthritis and ankylosing spondylitis. He had a colonoscopy about 6 years due to blood in his stool but this was negative. [facility] Medical History History of steroid therapy Wears contact lenses Wears glasses Alcohol use Ankylosing spondylitis Psoriatic arthritis History of GI bleed Former smoker Home Medications ?Medication ?Instructions ?Recorded ?Last Taken ?Type amoxicillin 875 mg-potassium 875 mg PO Q12H #14 TABLETS 03/02/25 03/07/25 Rx clavulanate 125 mg tablet prednisone 20 mg tablet 20 mg PO BID 03/03/25 03/07/25 History Allergy/AdvReac Type Severity Reaction Status Date / Time No Known Allergies Allergy Verified 03/08/25 06:42 Surgical History History of colonoscopy History of rhinoplasty Social History household members: spouse housing: house Smoking Status: Former smoker ROS Constitutional Constitutional: Denies fatigue, fever(s), poor appetite, weight gain or weight loss Gastrointestinal Gastrointestinal: Denies belching, bloating, change in bowel habits, change in stool character, chewing difficulty, coffee ground emesis, constipation, cramping, diarrhea, dyspepsia, dysphagia, early satiety, excessive flatus, fecal incontinence, heartburn, hematemesis, hematochezia, hemorrhoids, loose stools, melena, nausea, odynophagia, rectal bleeding, tenesmus, vomiting or weight changes Vital Signs Vital Signs Vital Signs: 03/08/25 06:43 03/08/25 06:43 03/08/25 07:16 Temperature 97.8 F 97.8 F Temperature Source Temporal Pulse Rate 85 85 Respiratory Rate 17 17 Respiratory Pattern Normal Blood Pressure 128/90 H 128/90 H Blood Pressure Mean 102 Blood Pressure Source Monitor Blood Pressure Position Semi-Fowlers Blood Pressure Location Left Arm Pulse Ox 100 100 Oxygen Delivery Method Room Air Room Air Weight Weight: 108 lb 0.424 oz Body Mass Index (BMI) 15.5 Physical Exam Const alert, oriented x3, no apparent distress and healthy appearing General Appearance: cooperative GI normal to inspection, nondistended, normoactive bowel sounds, soft to palpation, non-tender and non-distended Percussion: normal to percussion Rectal Exam: deferred Assessment & Plan Assessment/Plan (1) Chronic diarrhea: (2) Blood in stool: (3) Abdominal pain: (4) Weight loss: (5) Diarrhea: PLAN: Assessment and Plan Assessment and Plan (1) Diarrhea: Status: Acute Plan: This is a 24 yo male pt here today for evaluation of diarrhea x3 weeks associated with weight loss and abdominal pain. Pt has a PMHx of psoriatic arthritis and ankylosing spondylitis and was on Humira but recently discontinued due to INS issues. He endorses a family hx of UC. Work up thus fur with PCP has included stool testing which was negative for enteric paths and c.dif however lactoferrin was positive. He has been on Budesonide which has not provided relief. I will order calprotectin, ESR and CRP. He will be scheduled for colonoscopy as I have high suspicion for UC given autoimmune hx, family hx and symptoms. He may take Imodium in the meantime to control this symptoms. He has plan on restarting biologic therapy as soon as possible. If he does have UC my recommendation will also be for him to re start his biologic. -ESR, CRP and calprotectin -Colonoscopy -Consider re starting biologic therapy -f/u after procdure (2) Weight loss: Status: Acute (3) Abdominal pain: Status: Acute (4) Blood in stool: Status: Acute Orders: Orders Erythrocyte Sed Rate Today K92.1 - Melena, R10.9 - Unspecified abdominal pain, R19.7 - Diarrhea, unspecified, R63.4 - Abnormal weight loss CRP Today K92.1 - Melena, R10.9 - Unspecified abdominal pain, R19.7 - Diarrhea, unspecified, R63.4 - Abnormal weight loss Calprotectin, Stool Today K92.1 - Melena, R10.9 - Unspecified abdominal pain, R19.7 - Diarrhea, unspecified, R63.4 - Abnormal weight loss
--- NOTE | 2025-03-08 07:55 | OP.COLON_ITS ---
Patient Name: Wilber Milian Procedure Date: 03/08/2025 7:35 AM Date of : 2000 Age: 24 Procedure: Colonoscopy Indications: Suspected chronic ulcerative pancolitis Providers: Blair Odell DO Referring MD: Alfonzo Hayes Medicines: Monitored Anesthesia Care Patient Profile: This is a 24 year old male. Refer to note in patient chart for documentation of history and physical. Last Colonoscopy: none. The patient's first colonoscopy is today. Complications: No immediate complications. Procedure: Pre-Anesthesia Assessment: - Prior to the procedure, a History and Physical was performed, and patient medications and allergies were reviewed. The patient is competent. The risks and benefits of the procedure and the sedation options and risks were discussed with the patient. All questions were answered and informed consent was obtained. Patient identification and proposed procedure were verified by the nurse in the pre-procedure area. Mental Status Examination: alert and oriented. Airway Examination: normal oropharyngeal airway and neck mobility. Respiratory Examination: clear to auscultation. CV Examination: normal. Prophylactic Antibiotics: The patient does not require prophylactic antibiotics. Prior Anticoagulants: The patient has taken no anticoagulant or antiplatelet agents. ASA Grade Assessment: II - A patient with mild systemic disease. After reviewing the risks and benefits, the patient was deemed in satisfactory condition to undergo the procedure. The anesthesia plan was to use monitored anesthesia care (MAC). Immediately prior to administration of medications, the patient was re-assessed for adequacy to receive sedatives. The heart rate, respiratory rate, oxygen saturations, blood pressure, adequacy of pulmonary ventilation, and response to care were monitored throughout the procedure. The physical status of the patient was re-assessed after the procedure. After I obtained informed consent, the scope was passed under direct vision. Throughout the procedure, the patient's blood pressure, pulse, and oxygen saturations were monitored continuously. The colonoscope was introduced through the anus and advanced to the terminal ileum. The colonoscopy was performed without difficulty. The patient tolerated the procedure well. The quality of the bowel preparation was adequate. The ileocecal valve, appendiceal orifice, and rectum were photographed. Scope In: 7:40:12 AM Scope Withdrawal Time 0 hours 6 minutes 30 seconds Scope Out: 7:50:18 AM Total Procedure Duration Time 0 hours 10 minutes 6 seconds Findings: The perianal and digital rectal examinations were normal. Inflammation was found in a continuous and circumferential pattern from the anus to the cecum. This was graded as Guerrero Score 3 (severe, with spontaneous bleeding, ulcerations), and when compared to the previous examination, the findings are new. Biopsies were taken with a cold forceps for histology. Verification of patient identification for the specimen was done. Estimated blood loss was minimal. Stool was found in the descending colon and at the hepatic flexure. Fluid aspiration for bacterial cultures and Clostridium difficile was performed. Impression: - Severe (Guerrero Score 3) pancolitis ulcerative colitis, new since the last examination. Biopsied. - Stool in the descending colon and at the hepatic flexure. Fluid aspiration performed. Recommendation: - Discharge patient to home. - Resume previous diet. - Continue present medications. - Await pathology results. - Repeat colonoscopy to evaluate the response to therapy. - Prednisone 40 mg 3 times a day - Hydrocortisone enemas twice daily x 1 month - Possible antibiotics pending cultures Procedure Code(s): --- Professional --- 33458, Colonoscopy, flexible; with biopsy, single or multiple CPT copyright 2021 [employer]. All rights reserved. The codes documented in this report are preliminary and upon death surveys coder review may be revised to meet current compliance requirements. Blair Odell DO 03/08/2025 7:55:14 AM This report has been signed electronically. Number of Addenda: 0 Note Initiated On: 03/08/2025 7:35 AM
--- NOTE | 2025-03-08 07:55 | OP.CCLET_ITS ---
03/08/2025 Alfonzo Hayes Re : Colonoscopy procedure for Wilber Milian Dear Maicol This procedure was performed on Saturday, March 08, 2025. My impressions and recommendations are as follows: Impressions : - Severe (Guerrero Score 3) pancolitis ulcerative colitis, new since the last examination. Biopsied. - Stool in the descending colon and at the hepatic flexure. Fluid aspiration performed. Recommendations : - Discharge patient to home. - Resume previous diet. - Continue present medications. - Await pathology results. - Repeat colonoscopy to evaluate the response to therapy. - Prednisone 40 mg 3 times a day - Hydrocortisone enemas twice daily x 1 month - Possible antibiotics pending cultures My findings are described in the full procedure note, which is enclosed. If I can be of further assistance, please feel free to contact me at . Sincerely, Blair Odell, 03/08/2025 7:55:14 AM This report has been signed electronically.
--- NOTE | 2025-03-08 08:02 | PCM.POST.ANE ---
Anesthesia: Postop Eval I Current Vital Signs Temperature: 97.8 F Pulse Rate: 67 Blood Pressure: 112/76 Respiratory Rate: 16 Pulse Ox: 100 Oxygen Delivery Method: Room Air Assessment Airway patent: Yes Spontaneous unlabored respirations: Yes Mental status: Awake and Calm nausea: No Vomiting: No Anesthesia Complication: No Fluid Hydration Crystalloid volume administer (ml): 500 Total IV fluid infused: 500 Progress Note Anesthesia document: Postop Eval 1 completed: Yes
--- NOTE | 2025-03-08 08:13 | PCM.POSTANE2 ---
Anesthesia Postop Eval I Sum Postop Eval Completion status Anesthesia document: Postop Eval 1 completed: Yes Anesthesia Postop Eval I Summary Anesthesia Postop Eval I Summary: Anesthesia Postop Eval I: Assessment Summary Airway patent Yes 03/08/25 08:02 [email or web address] Spontaneous unlabored Yes 03/08/25 08:02 [email or web address] respirations Mental status Awake,Calm 03/08/25 08:02 [email or web address] nausea No 03/08/25 08:02 [email or web address] Vomiting No 03/08/25 08:02 [email or web address] Anesthesia Postop Eval I: Fluid Summary Crystalloid volume administer 500 03/08/25 08:02 [email or web address] (ml) Colloids volume administered ( ml) Blood Product volume administered (ml) Total IV fluid infused 500 03/08/25 08:02 [email or web address] Anesthesia Postop Eval I: Summary Notes Anesthesia Complication No 03/08/25 08:02 [email or web address] Anesthesia Complication Comment: Post-operative progress note Anesthesia: Postop Eval II Evaluation Mental status: Calm Pain Level: 0 nausea: No Vomiting: No
== END 2025-03-08 08:45 | disposition home or self-care (01) ==
LOC: EN 05:56 → AC 05:57
PROVIDERS: PCP Nurse Practitioner Family; Referring Provider Nurse Practitioner Family; Visit Provider Internal Medicine Gastroenterology
PROC: 0DJD8ZZ Inspection of Lower Intestinal Tract, Via Natural or Artificial Opening Endoscopic (ICD-10-PCS; CPT 45378; principal; 2025-03-08 06:55)
DX: K51.00 Ulcerative (chronic) pancolitis without complications (principal); Z87.891 Personal history of nicotine dependence; K62.89 Other specified diseases of anus and rectum; D72.822 Plasmacytosis
CPT/HCPCS: 45380; 87506; 88305; 88342; J2405

== ENCOUNTER → 2025-03-15 | Outpatient (CLI) | payer OTHER, SELFPAY ==
[2025-03-15 13:15] LABS: Absolute Neutrophil Count 20.1 X10^3/uL (2.0-7.7); Basophil# 0.07 X10^3/uL; Basophil% 0.3 % (0-1); Hematocrit 38.5 % (40-54); Hemoglobin 13.3 g/dL (13.0-16.5); Mean Corp Hgb Conc 34.5 g/dL (32-36); Mean Corpuscular Hgb 28.7 pg (27.0-32.0); Mean Corpuscular Volume 83.2 fL (80-94); Mean Platelet Vol. 8.7 fl (6.2-12.0); Monocyte# 1.03 X10^3/uL; Monocyte% 4.6 % (0-10); NRBC Flagged by Analyzer 0 % (0-5); Neutrophil # 20.07 X10^3/uL (2.7-7.7); Neutrophil % 90.3 % (47-70); POSITIVE DIFFERENTIAL YES; Platelet Count 614 K/mm3 (150-450); RBC Distribution Width CV 13.5 % (11.6-14.6); RBC Distribution Width SD 40.8 fl (35.1-43.9); Red Blood Count 4.63 M/mm3 (4.6-6.2); White Blood Count 22.2 K/mm3 (4.4-11.0)
[2025-03-15 13:17] LABS: Differential Indicated SCAN CRITERIA MET
[2025-03-15 13:45] LABS: ALB/GLOB Ratio 1.1 RATIO (0.9-2.4); AST(SGOT) 10 U/L (<=37); Alanine Aminotransfer ALT/SGPT 12 U/L (<=46); Albumin, Serum 3.4 g/dL (3.5-5.0); Alkaline Phosphatase 98 U/L (40-129); Anion Gap 10 (5-15); BUN 21 mg/dL (4-19); BUN/Creat Ratio 27.1 RATIO (10-20); Carbon Dioxide 26.1 mmol/L (21.0-32.0); Chloride 95 mmol/L (98-108); Creatinine, Serum 0.76 mg/dL (0.70-1.20); EST Glomerular Filtration Rate 127 (>60); Glucose 116 mg/dL (70-99); Potassium 4.7 mmol/L (3.3-5.1); Protein, Total 6.3 g/dL (5.9-8.4); Sodium Level 131 mmol/L (133-145)
[2025-03-15 14:03] LABS: Platelet Estimate MKD DEC (ADEQ); Toxic Granulation 3+
[2025-03-18 04:07] LABS: QNTFERON TB Mitogen Value 0.53 IU/mL (.); QNTFERON TB Nil Value 0.01 IU/mL (.); QNTFERON TB1+ Ag Value 0.01 IU/mL (.); QNTFERON TB2+ Ag Value 0.01 IU/mL (.); QNTIFERON TB Positive Criteria Negative (Negative)
== END | disposition home or self-care (01) ==
LOC: LAB 12:43
PROVIDERS: PCP Nurse Practitioner Family; Referring Provider Student in an Organized Health Care Education/Training Program; Visit Provider Student in an Organized Health Care Education/Training Program
DX: K51.90 Ulcerative colitis, unspecified, without complications (principal)
CPT/HCPCS: 36415; 80053; 85025; 86480

== ENCOUNTER → 2025-03-21 | Outpatient (CLI) | payer OTHER, SELFPAY ==
[2025-03-21 16:22] LABS: ALB/GLOB Ratio 1.3 RATIO (0.9-2.4); AST(SGOT) 13 U/L (<=37); Alanine Aminotransfer ALT/SGPT 20 U/L (<=46); Albumin, Serum 3.3 g/dL (3.5-5.0); Alkaline Phosphatase 105 U/L (40-129); Anion Gap 12 (5-15); BUN 19 mg/dL (4-19); BUN/Creat Ratio 32.1 RATIO (10-20); CRP < 3.00 mg/L (0.0-3.0); Calcium,Total 8.3 mg/dL (7.6-11.0); Carbon Dioxide 21.1 mmol/L (21.0-32.0); Chloride 96 mmol/L (98-108); EST Glomerular Filtration Rate 137 (>60); Globulin 2.6 g/dL (2.2-4.2); Glucose 135 mg/dL (70-99); Potassium 3.9 mmol/L (3.3-5.1); Protein, Total 5.9 g/dL (5.9-8.4); Sodium Level 129 mmol/L (133-145); Total Bilirubin 0.21 mg/dL (0.00-1.30)
[2025-03-21 16:27] LABS: Absolute Lymphocyte Count 1.25 X10^3/uL (0.83-4.51); Absolute Neutrophil Count 25.6 X10^3/uL (2.0-7.7); Basophil# 0.08 X10^3/uL; Basophil% 0.3 % (0-1); Hematocrit 31.7 % (40-54); Lymphocyte # 1.25 X10^3/ul (0.83-4.51); Lymphocyte % 4.4 % (19-41); Mean Corp Hgb Conc 34.7 g/dL (32-36); Mean Corpuscular Volume 83.6 fL (80-94); Mean Platelet Vol. 9.1 fl (6.2-12.0); Monocyte# 0.83 X10^3/uL; Monocyte% 2.9 % (0-10); NRBC Flagged by Analyzer 0 % (0-5); Neutrophil # 25.59 X10^3/uL (2.7-7.7); Neutrophil % 90.8 % (47-70); POSITIVE DIFFERENTIAL YES; Platelet Count 590 K/mm3 (150-450); RBC Distribution Width CV 13.9 % (11.6-14.6); RBC Distribution Width SD 42.1 fl (35.1-43.9); Red Blood Count 3.79 M/mm3 (4.6-6.2); White Blood Count 28.2 K/mm3 (4.4-11.0)
[2025-03-21 19:36] LABS: Differential Indicated SCAN CRITERIA MET
[2025-03-21 19:44] LABS: Differential Comment SCANNED
[2025-03-21 19:45] LABS: Platelet Estimate ADEQUATE (ADEQ)
[2025-03-21 19:46] LABS: Erythrocyte Sedimentation Rate 3 mm/hr (0-20)
== END | disposition home or self-care (01) ==
LOC: LAB 14:02
PROVIDERS: PCP Nurse Practitioner Family; Referring Provider Student in an Organized Health Care Education/Training Program; Visit Provider Student in an Organized Health Care Education/Training Program
DX: K51.90 Ulcerative colitis, unspecified, without complications (principal); K92.1 Melena; R10.9 Unspecified abdominal pain; R63.4 Abnormal weight loss; R19.7 Diarrhea, unspecified
CPT/HCPCS: 36415; 80053; 85025; 85652; 86140

== ENCOUNTER → 2025-03-22 | Outpatient (CLI) | payer OTHER, SELFPAY ==
--- NOTE | 2025-03-22 09:03 | RAD_ITS ---
PROCEDURE: ABDOMEN SINGLE VIEW 03/22/2025 REASON FOR EXAM: Ulcerative colitis. TECHNIQUE: Single view abdomen. COMPARISON: None. FINDINGS: The bowel gas pattern is normal. There are no abnormal soft tissue calcifications. There are no bony abnormalities. RAD/Abdomen Single View IMPRESSION: No evidence of acute abdominal pathology. Reading Location: [place] [id number]
--- OUTSIDE RECORDS SUMMARY | 2025-03-22 11:26 | XMS RPT_ITS | CCD ---
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 Cal Powers DO Emergency Provider Dr. Cal Powers DO Attending Provider Shilpi CALL SPECIALIST-C, Eve Primary Care Provider Shilpi CALL SPECIALIST-C, Eve Attending Provider Shilpi CALL SPECIALIST-C, Eve Referring Provider Patricia Cho Attending Provider Dr. Zi Wilkins MD Attending Provider Dr. Zi Wilkins MD Emergency Provider [phone] Blair Odell DO Attending Provider Dr. Blair Odell DO Other Provider Patricia Cho Referring Provider Patricia Baugh Attending Unavailable Shilpi, Eve Primary Care Unavailable Shilpi, Eve Referring Unavailable Shilpi, Eve Primary Care Unavailable Patricia Baugh Attending Unavailable Shilpi, Eve Referring Unavailable Shilpi, Eve Primary Care Unavailable Blair Odell Consulting Unavailable Blair Odell Attending Unavailable Shilpi, Eve Referring Unavailable Shilpi, Eve Primary Care Unavailable Patricia Baugh Referring Unavailable Patricia Baugh Attending Unavailable Zi Wilkins Attending Unavailable Shilpi, Eve Primary Care Unavailable Suzi CALL SPECIALIST, Patricia Primary Care Unavailable Cal Powers Attending Unavailable Shilpi, Eve Referring Unavailable Shilpi, Eve Primary Care Unavailable Shilpi, Eve Attending Unavailable Shilpi, Eve Referring Unavailable Shilpi, Eve Primary Care Unavailable Shilpi, Eve Attending Unavailable Shilpi, Eve Primary Care Unavailable Friend, Blair Attending Unavailable Shilpi, Eve Referring Unavailable Medications Current Medications Medication Drug Class(es) Dates Sig (Normalized) Sig (Original) 0.4 ml adalimumab 100 mg/ml auto-injector (5 sources) Tumor Necrosis Factor Cruzito Start: 03-19-2022 Humira Pen 40 mg/0.4 mL subcutaneous kit 0 Refill(s) Start Date: 03/19/22 Status: Ordered amoxicillin 875 mg / clavulanate 125 mg oral tablet (3 sources) Penicillin-class Antibacterial Start: 03-02-2025 take 1 tablet by mouth every twelve hours Amoxicillin-Pot Clavulanate 875-125 mg tablet Active 875 mg PO Q12H March 02, 2025 12:00am Amphetamine / Dextroamphetamine (1 source) Central Nervous System Stimulant Start: 12-22-2023 End: 01-21-2024 amphetamine-dextr oamphetamine 25 mg oral capsule, extended release Dose : 25 mg = 1 cap(s), Oral, qAM, Oarrs reviewed 12/22/23 Do not fill until 02/20/24, # 30 cap(s), 0 Refill(s), Pharmacy: [id number], ADHD, 180.5, cm, 12/22/23 9:32:00 EDT, Height, 59, kg, 12/22/23 9:32:00 EDT, Dosing Weight Start Date: 12/22/23 Stop Date: 01/21/24 Status: Ordered 24 hr amphetamine aspartate 6.25 mg / amphetamine sulfate 6.25 mg / dextroamphetamine saccharate 6.25 mg / dextroamphetamine sulfate 6.25 mg extended release oral capsule (14 sources) Central Nervous System Stimulant Start: 12-22-2023 End: 01-21-2024 Adderall XR 25 mg oral capsule, extended release Dose : 25 mg = 1 cap(s), Oral, qAM, Do not fill until 12/22/23 [facility] reviewed 12/22/23, # 30 cap(s), 0 Refill(s), Pharmacy: [facility], ADHD, 180.5, cm, 12/22/23 9:32:00 EDT, Height, 59, kg, 12/22/23 9:32:00 EDT, Dosing Weight Start Date: 12/22/23 Stop Date: 01/21/24 Status: Ordered Start: 08-21-2023 End: 09-20-2023 amphetamine-dextroamphetamin e 25 mg oral capsule, extended release Dose : 25 mg = 1 cap(s), Oral, qAM, [facility] reviewed 08/21/23 Dr. Payne Ok to fill 08-21-2023, # 30 cap(s), 0 Refill(s), Pharmacy: [id number], ADHD, 180.5, cm, 06/17/23 15:29:00 EDT, Height, 56.8, kg, 06/17/23 15:29:00 EDT, Dosing Weight Start Date: 08/21/23 Stop Date: 09/20/23 Status: Ordered Start: 06-17-2023 End: 07-17-2023 Adderall XR 25 mg oral capsu le, extended release Dose : 25 mg = 1 cap(s), Oral, qAM, Do not fill until 06-29-2023 [facility] reviewed 06-17-2023, # 30 cap(s), 0 Refill(s), Pharmacy: [facility], ADHD, 180.5, cm, 06/17/23 15:29:00 EDT, Height, 56.8, kg, 06/17/23 15:29:00 EDT, Dosing Weight Start Date: 06/17/23 Stop Date: 07/17/23 Status: Ordered Start: 06-18-2022 End: 07-18-2022 Adderall XR 25 mg oral capsu le, extended release Dose : 25 mg = 1 cap(s), Oral, qAM, O[facility] reviewed 06/18/22 Do not fill until 08/24/22, # 30 cap(s), 0 Refill(s), Pharmacy: [facility] #[id number], ADHD, 180.9, cm, 06/18/22 7:55:00 EDT, Height, 56.3 Start Date: 06/18/22 Stop Date: 07/18/22 Status: Ordered fexofenadine hydrochloride 180 mg oral tablet (1 source) Histamine-1 Receptor Antagonist Start: 09-17-2023 Ena 24 Hour Allergy oral tablet Dose : 180 mg = 1 tab(s), Oral, Daily, # 90 tab(s), 0 Refill(s) Start Date: 09/17/23 Status: Ordered hydrocortisone 1.67 mg/ml enema (4 sources) Corticosteroid Start: 03-08-2025 End: 03-20-2025 Hydrocortisone 100 mg/60 mL enema Active 100 mg RC TWICE A DAY 1259March 20, 2025 10:14am 24 hr nicotine 0.583 mg/hr transdermal system (3 sources) Cholinergic Nicotinic Agonist Start: 07-21-2022 End: 10-13-2022 apply 1 dose transdermal route once daily NicoDerm CQ 14 mg/24 hr transdermal patch Dose = 1 patch(es), Transdermal, Daily, X 6 week(s), # 42 patch(es), 1 Refill(s), Pharmacy: [facility]/pharmacy #[id number], 180.9, cm, 06/18/22 7:55:00 EDT, Height Start Date: 07/21/22 Stop Date: 10/13/22 Status: Ordered Start: 06-18-2022 End: 10-16-2022 apply 1 dose transdermal route once daily NicoDerm CQ 21 mg/24 hr transdermal patch Dose = 1 patch(es), Transdermal, Daily, X 30 day(s), # 30 patch(es), 3 Refill(s), Pharmacy: [facility]acy #[id number], 180.9, cm, 06/18/22 7:55:00 EDT, Height Start Date: 06/18/22 Stop Date: 10/16/22 Status: Ordered ofloxacin 3 mg/ml ophthalmic solution (1 source) Quinolone Antimicrobial Start: 08-10-2022 End: 08-15-2022 ofloxacin 0.3% ophthalmic solution Dose = 1 drop(s), Eye, right, q4h, X 5 day(s), # 10 mL, 0 Refill(s), Chemical injury to conjunctiva Start Date: 08/10/22 Stop Date: 08/15/22 Status: Ordered predniSONE 10 mg oral tablet (11 sources) Start: 03-15-2025 Prednisone 10 mg tablet Active 10 mg PO daily March 15, 2025 12:00am Take three 10 mg tabs for two weeks, then two 10 mg tabs for two weeks and lastly one 10 mg tab for two weeks Start: 03-08-2025 take 2 tablets by mo uth three times daily Prednisone 20 mg tablet Active 40 mg PO THREE TIMES A DAY March 08, 2025 12:00am Start: 03-03-2025 End: 03-08-2025 take 1 tablet by mouth twice daily Prednisone 20 mg tablet Discontinued 20 mg PO TWICE A DAY March 03, 2025 12:00am March 08, 2025 7:59am Start: 03-02-2025 End: 03-03-2025 take 2 tablets by mouth once daily Prednisone 20 mg tablet Discontinued 40 mg PO DAILY March 02, 2025 12:00am March 03, 2025 2:06pm terbinafine 250 mg oral tablet (4 sources) Allylamine Antifungal Start: 06-17-2023 End: 09-15-2023 terbinafine 250 mg oral tablet Dose : 250 mg = 1 tab(s), Oral, qDay, X 30 day(s), # 30 tab(s), 2 Refill(s), 09/15/23 3:54:00 PM EST, Pharmacy: [facility], 180.5, cm, 06/17/23 15:29:00 EDT, Height, kg, 06/17/23 15:29:00 EDT, Dosing Weight Start Date: 06/17/23 Stop Date: 09/15/23 Status: Ordered Start: 06-18-2022 End: 09-16-2022 terbinafine 250 mg oral tabl et Dose : 250 mg = 1 tab(s), Oral, qDay, X 30 day(s), # 30 tab(s), 2 Refill(s), 09/16/22 8:28:00 EST, Pharmacy: [facility]acy #[id number], 180.9, cm, 06/18/22 7:55:00 EDT, Height Start Date: 06/18/22 Stop Date: 09/16/22 Status: Ordered vitamin B12 (1 source) Vitamin B12 Start: 09-17-2023 Vitamin B12 0 Refill(s) Start Date: 09/17/23 Status: Ordered Completed/Discontinued Medications Medication Drug Class(es) Dates Sig (Normalized) Sig (Original) albuterol MDI (90 mcg/inh) CFC free inhalation aerosol (2 sources) Start: 08-27-2022 End: 09-26-2022 take 2 puff(s) by inhalation every four hours as needed for wheezing albuterol MDI (90 mcg/inh) CFC free inhalation aerosol 2 puff(s), Inhalation, q4h, PRN as needed for wheezing, # 8.5 gram(s), 0 Refill(s), Pharmacy: [facility]acy #[id number], 180.5, cm, 08/27/22 11:28:00 EST, Height Start Date: 08/27/22 Stop Date: 09/26/22 Status: Ordered 24 hr budesonide 9 mg extended release oral tablet (4 sources) Corticosteroid Start: 02-28-2025 End: 03-08-2025 take 1 tablet by mouth once daily in the morning Budesonide 9 mg tablet,delayed and ext.release Discontinued 9 mg PO EVERY MORNING February 28, 2025 12:00am March 08, 2025 6:42am Problems Active Problems Problem Classification Problem Date Documented Da te Episodic/Chronic Abdominal pain (20 sources) Left flank pain; Translations: [Unspecified abdominal pain] Onset: 03-07-2025 01-19-2025 Episodic Asthma (2 sources) Mild intermittent asthma 08-27-2022 Chronic Attention-deficit, conduct, and disruptive behavior disorders (3 sources) Attention deficit hyperactivity disorder 03-19-2022 Chronic Attention-deficit, conduct, and disruptive behavior disorders (2 sources) Attention deficit hyperactivity disorder, combined type 09-15-2022 Chronic Cha (4 sources) Burn of cornea and conjunctival sac; Translations: [Corrosion of cornea and conjunctival sac, unspecified eye, initial encounter] Onset: 08-10-2022 Episodic Diseases of white blood cells (3 sources) Leukocytosis; Translations: [Elevated white blood cell count, unspecified] 03-02-2025 Chronic Fluid and electrolyte disorders (3 sources) Mild dehydration; Translations: [Dehydration] 03-02-2025 Episodic Gastrointestinal hemorrhage (13 sources) Hematochezia; Translations: [Melena] Onset: 02-28-2025 02-28-2025 Episodic Noninfectious gastroenteritis (8 sources) Chronic diarrhea; Translations: [Noninfective gastroenteritis and colitis, unspecified] Onset: 03-13-2025 03-02-2025 Episodic Other aftercare (2 sources) Other penitentiary (current) drug therapy; Translations: [Other long term care administrator (current) drug therapy] Onset: 12-22-2023 Episodic Other connective tissue disease (2 sources) Lateral epicondylitis 03-25-2023 Episodic Other gastrointestinal disorders (11 sources) Diarrhea; Translations: [Diarrhea, unspecified] 02-28-2025 Episodic Other gastrointestinal disorders (2 sources) Diarrhea, unspecified; Translations: [Diarrhea, unspecified] Onset: 02-28-2025 Episodic Other inflammatory condition of skin (5 sources) Psoriasis 03-19-2022 Chronic Other inflammatory condition of skin (2 sources) Psoriatic arthritis; Translations: [Arthropathic psoriasis, unspecified] 03-22-2025 Chronic Other nutritional; endocrine; and metabolic disorders (12 sources) Weight decreased; Translations: [Abnormal weight loss] 02-28-2025 Episodic Other nutritional; endocrine; and metabolic disorders (3 sources) Unintentional weight loss; Translations: [Abnormal weight loss] 03-02-2025 Episodic Other nutritional; endocrine; and metabolic disorders (2 sources) Abnormal weight loss; Translations: [Abnormal weight loss] Onset: 02-28-2025 Episodic Other upper respiratory disease (2 sources) Allergic rhinitis 08-27-2022 Chronic Regional enteritis and ulcerative colitis (6 sources) Ulcerative colitis; Translations: [Ulcerative colitis, unspecified, without complications] Onset: 03-20-2025 03-14-2025 Chronic Residual codes; unclassified (5 sources) Harmful pattern of use of nicotine 06-18-2022 Episodic Rheumatoid arthritis and related disease (7 sources) Ankylosing spondylitis; Translations: [Ankylosing spondylitis of unspecified sites in spine] 03-19-2022 Chronic Spondylosis; intervertebral disc disorders; other back problems (8 sources) Backache; Translations: [Dorsalgia, unspecified] Onset: 01-24-2025 01-19-2025 Episodic Unclassified (10 sources) Patient encounter status 03-19-2022 Unclassified (5 sources) Repeated prescription 03-19-2022 Unclassified (1 source) K51.90 - Ulcerative colitis, unspecified, without complications,R63.4 - Abnormal weight loss Unclassified (1 source) M45.9 - Ankylosing spondylitis of unspecified sites in spine,L40.50 - Arthropathic psoriasis, unspecified,K51.90 - Ulcerative colitis, unspecified, without complications Past or Other Problems Problem Classification Problem Date Documented Da te Episodic/Chronic Mycoses (9 sources) Onychomycosis; Translations: [Tinea pedis] Onset: 08-19-2023 03-19-2022 Episodic Other screening for suspected conditions (not mental disorders or infectious disease) (2 sources) Encounter for screening, unspecified; Translations: [Encounter for screening, unspecified] Onset: 08-19-2023 Episodic Results Test Name Value Interpretation Reference Range Facility Absolute lymphocyte countOrd ered By: Patricia Baugh on 03-21-2025 Lymphocytes Auto (Unsp spec) [#/Vol] 1.25 10*3/uL 0.83-4.51 [facility] Absolute neutrophil countOrd ered By: Patricia Baugh on 03-21-2025 Neutrophils (Bld) [#/Vol] 25.6 10*3/uL High 2.0-7.7 [facility] Anion gap in Serum or Plasma Ordered By: Patricia Baugh on 03-21-2025 Anion gap [Moles/Vol] 12 mmol/L 5-15 [facility] Automated lymphocyte count a s percentage of total leukocytesOrdered By: Patricia Baugh on 03-21-2025 Lymphocytes/100 WBC Auto (Unsp spec) 4.4 % Low 19-41 [facility] BUN/creatinine ratioOrdered By: Patricia Baugh on 03-21-2025 Urea nitrogen/Creatinine [Mass ratio] 32.1 mg/mg High 10-20 [facility] Basophil percentageOrdered B y: Patricia Baugh on 03-21-2025 Basophils/100 WBC (Bld) 0.3 % 0-1 [facility] Bilirubin, totalOrdered By: Patricia Baugh on 03-21-2025 Bilirubin [Mass/Vol] 0.21 mg/dL 0.00-1.30 [facility] Blood manual differential co mment interpretation (narrative result)Ordered By: Patricia Baugh on 03-21-2025 Manual differential comment Martin (Bld) [Interp] SCANNED [facility] Carbon dioxide, total [Moles /volume] in Central venous bloodOrdered By: Patricia Baugh on 03-21-2025 CO2 [Moles/Vol] 21.1 mmol/L 21.0-32.0 [facility] Chloride assayOrdered By: Isamar Baugh on 03-21-2025 Chloride [Moles/Vol] 96 mmol/L Low 98-108 [facility] Eosinophil percentageOrdered By: Patricia Baugh on 03-21-2025 Eosinophils/100 WBC (Bld) 0.0 % 0-5 [facility] Erythrocyte distribution wid th ratioOrdered By: Patricia Baugh on 03-21-2025 Erythrocyte distribution width (RBC) [Ratio] 13.9 % 11.6-14.6 [facility] Erythrocyte distribution wid th standard deviationOrdered By: Patricia Baugh on 03-21-2025 Erythrocyte distribution width (RBC) [Ratio] 42.1 fl 35.1-43.9 [facility] Erythrocyte sedimentation ra teOrdered By: Patricia Baugh on 03-21-2025 ESR (Bld) [Velocity] 3 mm/h 0-20 [facility] Glomerular filtration rate ( GFR) estimation/1.73 sq m using serum, plasma, or whole bOrdered By: Patricia Baugh on 03-21-2025 GFR/1.73 sq M.predicted among non-blacks MDRD (S/P/Bld) [Vol rate/Area] 137 mL/min/{1.73_m2} >60 [facility] Comment on above: mL/min/1.73m2 CKD-EP I Creatinine Equation (2020) Hematocrit Auto (Bld) [Volum e fraction]Ordered By: Patricia Baugh on 03-21-2025 Hematocrit (Bld) [Volume fraction] 31.7 % Low 40-54 [facility] Hemoglobin measurementOrdere d By: Patricia Baugh on 03-21-2025 Hemoglobin (Bld) [Mass/Vol] 11.0 g/dL Low 13.0-16.5 [facility] Immature granulocytes/100 WB C Auto (Bld)Ordered By: Patricia Baugh on 03-21-2025 Immature granulocytes/100 WBC (Bld) 1.600 % High 0.0-0.9 [facility] Comment on above: IG% - Immature Granu locytes (promyelocytes, myelocytes and metamyelocytes) > 1% indicates that a LEFT SHIFT is Present. Laboratory - Chemistry and C hemistry - challengeOrdered By: Patricia Baugh on 03-21-2025 AST [Catalytic activity/Vol] 13 U/L <38 [facility] MCV (mean corpuscular volume ) determinationOrdered By: Patricia Baugh on 03-21-2025 MCV (RBC) [Entitic vol] 83.6 fL 80-94 [facility] Mean corpuscular hemoglobin (MCH) determinationOrdered By: Patricia Baugh on 03-21-2025 MCH (RBC) [Entitic mass] 29.0 pg 27.0-32.0 [facility] Mean corpuscular hemoglobin concentration (MCHC) determinationOrdered By: Patricia Baugh on 03-21-2025 MCHC (RBC) [Mass/Vol] 34.7 g/dL 32-36 [facility] Mean platelet volume determi nationOrdered By: Patricia Baugh on 03-21-2025 Platelet mean volume (Bld) [Entitic vol] 9.1 fL 6.2-12.0 [facility] Monocyte percentageOrdered B y: Patricia Baugh on 03-21-2025 Monocytes/100 WBC (Bld) 2.9 % 0-10 [facility] Neutrophil percentageOrdered By: Patricia Baugh on 03-21-2025 Neutrophils/100 WBC (Bld) 90.8 % High 47-70 [facility] Nucleated red blood cell per centageOrdered By: Patricia Baugh on 03-21-2025 Nucleated RBC/100 WBC (Bld) [Ratio] 0 % 0-5 [facility] Platelet countOrdered By: Isamar Baugh on 03-21-2025 Platelets (Bld) [#/Vol] 590 10*3/uL High 150-450 [facility] Platelet estimateOrdered By: Patricia Baugh on 03-21-2025 Platelets LM Ql (Bld) ADEQUATE ADEQ [facility] Potassium measurement (mass/ volume)Ordered By: Patricia Baugh on 03-21-2025 Potassium (Unsp spec) [Mass/Vol] 3.9 mmol/L 3.3-5.1 [facility] RBC Auto (Bld) [#/Vol]Ordere d By: Patricia Baugh on 03-21-2025 RBC (Bld) [#/Vol] 3.79 10*6/uL Low 4.6-6.2 [facility] Serum creatinine measurement (mass/volume)Ordered By: Patricia Baugh on 03-21-2025 Creatinine [Mass/Vol] 0.60 mg/dL Low 0.70-1.20 [facility] Serum globulin measurementOr dered By: Patricia Baugh on 03-21-2025 Globulin (S) [Mass/Vol] 2.6 g/dL 2.2-4.2 [facility] Serum glucose measurement (m ass/volume)Ordered By: Patricia Baugh on 03-21-2025 Glucose [Mass/Vol] 135 mg/dL High 70-99 [facility] Serum or plasma C reactive p rotein measurement (mass/volume)Ordered By: Patricia Baugh on 03-21-2025 CRP [Mass/Vol] mg/L 0.0-3.0 [facility] Serum or plasma alanine madden otransferase (ALT) measurementOrdered By: Patricia Baugh on 03-21-2025 ALT [Catalytic activity/Vol] 20 U/L <47 [facility] Serum or plasma albumin adeola urement (mass/volume)Ordered By: Patricia Baugh on 03-21-2025 Albumin [Mass/Vol] 3.3 g/dL Low 3.5-5.0 [facility] Serum or plasma albumin/glob ulin mass ratioOrdered By: Patricia Baugh on 03-21-2025 Albumin/Globulin [Mass ratio] 1.3 {ratio} 0.9-2.4 [facility] Serum or plasma alkaline jaret sphatase measurementOrdered By: Patricia Baugh on 03-21-2025 ALP [Catalytic activity/Vol] 105 U/L 40-129 [facility] Serum or plasma calcium adeola urement (mass/volume)Ordered By: Patricia Baugh on 03-21-2025 Calcium [Mass/Vol] 8.3 mg/dL 7.6-11.0 [facility] Serum or plasma urea nitroge n measurement (mass/volume)Ordered By: Patricia Baugh on 03-21-2025 Urea nitrogen [Mass/Vol] 19 mg/dL 4-19 [facility] Sodium levelOrdered By: Danilo Baugh on 03-21-2025 Sodium [Moles/Vol] 129 mmol/L Low 133-145 [facility] Total proteinOrdered By: Betty Baugh on 03-21-2025 Protein [Mass/Vol] 5.9 g/dL 5.9-8.4 [facility] White blood cell (WBC) count Ordered By: Patricia Baugh on 03-21-2025 WBC (Bld) [#/Vol] 28.2 10*3/uL High 4.4-11.0 [facility] Quantiferon TB-Gold+on 03-18 QFT MITOGEN MARK 0.53 IU/mL Normal . [facility] Comment on above: Performed By: #### L [id number], L3400.8000, L100.0100 #### [facility] [address] [place], [address] QFT NIL VALUE 0.01 IU/mL Normal . [facility] Comment on above: Performed By: #### L [id number], L3400.8000, L100.0100 #### [facility] [address] [place], [address] QFT TB GOLD+ Comment Normal . [facility] Comment on above: Result Comment: [facility] tiFERON-TB Gold Plus is a qualitative indirect test for M tuberculosis infection (including disease) and is intended for use in conjunction with risk assessment, radiography, and other medical and diagnostic evaluations. The QuantiFERON-TB Gold Plus result is determined by subtracting the Nil value from either TB antigen (Ag) value. The Mitogen tube serves as a control for the test. Performed By: #### L [id number], L3400.8000, L100.0100 #### [facility] [address] [facility] [place] [place], [address] QFT TB POS CRIT Negative Normal Negative [facility] Comment on above: Result Comment: No r esponse to M tuberculosis antigens detected. Infection with M tuberculosis is unlikely, but high risk individuals should be considered for additional testing (ATS/IDSA/CDC Clinical Practice Guidelines, 2017). The reference range is an Antigen minus Nil result of <0.35 IU/mL. The specimen received for QuantiFERON testing was incubated by the ordering institution. Specific procedures outlined in our Directory of Services and in the package insert for the QuantiFERON Gold (In Tube) test must be followed to enable for proper stimulation of cells for the production of interferon gamma. Chemiluminescence immunoassay methodology Performed at: [email or web address] [id number] President And Cmo: Virgilio Knight PhD, Phone: [phone] Performed By: #### L [id number], [id number], L100.0100 #### [facility] [address] [place], [address] QFT TB1+ AG MARK 0.01 IU/mL Normal . [facility] Comment on above: Performed By: #### L [id number], [id number], L100.0100 #### [facility] [address] [place], [address] QFT TB2+ AG MARK 0.01 IU/mL Normal . [facility] Comment on above: Performed By: #### L [id number], [id number], L100.0100 #### [facility] [address] [place], [address] Absolute lymphocyte countOrd ered By: Patricia Baugh on 03-15-2025 Lymphocytes Auto (Unsp spec) [#/Vol] 0.90 10*3/uL 0.83-4.51 [facility] Absolute neutrophil countOrd ered By: Patricia Baugh on 03-15-2025 Neutrophils (Bld) [#/Vol] 20.1 10*3/uL High 2.0-7.7 [facility] Anion gap in Serum or Plasma Ordered By: Patricia Baugh on 03-15-2025 Anion gap [Moles/Vol] 10 mmol/L 5-15 [facility] Automated lymphocyte count a s percentage of total leukocytesOrdered By: Patricia Baugh on 03-15-2025 Lymphocytes/100 WBC Auto (Unsp spec) 4.0 % Low 19-41 [facility] BUN/creatinine ratioOrdered By: Patricia Baugh on 03-15-2025 Urea nitrogen/Creatinine [Mass ratio] 27.1 mg/mg High 10-20 [facility] Basophil percentageOrdered B y: Patricia Baugh on 03-15-2025 Basophils/100 WBC (Bld) 0.3 % 0-1 [facility] Bilirubin, totalOrdered By: Patricia Baugh on 03-15-2025 Bilirubin [Mass/Vol] 0.40 mg/dL 0.00-1.30 [facility] CBC W/Diff, Automatedon -0 PLT EST MKD DEC Normal ADEQ [facility] Comment on above: Performed By: #### L [id number], [id number], L100.0100 #### [facility] [address] [place], [address] TOXIC GRAN 3+ Normal [facility] Comment on above: Performed By: #### L [id number], [id number], L100.0100 #### [facility] [address] [place], [address] PATH REV Reviewed Normal [facility] Comment on above: Result Comment: SEE REPORT IN PATIENT'S EMR Performed By: #### L 100.0100, L3410.9992, L500.4100, L3410.2400, L500.4050 #### [facility] [address] [place], [address] Carbon dioxide, total [Moles /volume] in Central venous bloodOrdered By: Patricia Baugh on 03-15-2025 CO2 [Moles/Vol] 26.1 mmol/L 21.0-32.0 [facility] Chloride assayOrdered By: Isamar Baugh on 03-15-2025 Chloride [Moles/Vol] 95 mmol/L Low 98-108 [facility] Comprehensive Metabolic Prof ilon 03-15-2025 Albumin [Mass/Vol] 3.4 g/dL Low 3.5-5.0 [facility] Comment on above: Performed By: #### L 500.4050, L3400.8000, L100.0100 #### [facility] [address] [place], [address] Albumin/Globulin [Mass ratio] 1.1 {ratio} Normal 0.9-2.4 [facility] Comment on above: Performed By: #### L 500.4050, L3400.8000, L100.0100 #### [facility] [address] [place], [address] ALK PHOS 98 U/L Normal 40-129 [facility] Comment on above: Performed By: #### L 500.4050, L3400.8000, L100.0100 #### [facility] [address] [place], [address] ALT [Catalytic activity/Vol] 12 U/L Normal <=46 [facility] Comment on above: Performed By: #### L 500.4050, L3400.8000, L100.0100 #### [facility] [address] [place], [address] AST [Catalytic activity/Vol] 10 U/L Normal <=37 [facility] Comment on above: Performed By: #### L 500.4050, L3400.8000, L100.0100 #### [facility] [address] [place], [address] Bilirubin [Mass/Vol] 0.40 mg/dL Normal 0.00-1.30 [facility] Comment on above: Performed By: #### L 500.4050, L3400.8000, L100.0100 #### [facility] [address] [place], [address] BUN/CRE 27.1 RATIO High 10-20 [facility] Comment on above: Performed By: #### L 500.4050, L3400.8000, L100.0100 #### [facility] [address] [place], [address] Calcium [Mass/Vol] 9.0 mg/dL Normal 7.6-11.0 [facility] Comment on above: Performed By: #### L 500.4050, L3400.8000, L100.0100 #### [facility] [address] [place], [address] Chloride [Moles/Vol] 95 mmol/L Low 98-108 [facility] Comment on above: Performed By: #### L 500.4050, L3400.8000, L100.0100 #### [facility] [address] [place], [address] CO2 [Moles/Vol] 26.1 mmol/L Normal 21.0-32.0 [facility] Comment on above: Performed By: #### L 500.4050, L3400.8000, L100.0100 #### [facility] [address] [place], [address] Creatinine [Mass/Vol] 0.76 mg/dL Normal 0.70-1.20 [facility] Comment on above: Performed By: #### L 500.4050, L3400.8000, L100.0100 #### [facility] [address] [place], [address] GAP 10 Normal 5-15 [facility] Comment on above: Performed By: #### L 500.4050, L3400.8000, L100.0100 #### [facility] [address] [place], [address] GFR/1.73 sq M.predicted among non-blacks MDRD (S/P/Bld) [Vol rate/Area] 127 mL/min/{1.73_m2} Normal >60 [facility] Comment on above: Result Comment: mL/m in/1.73m2 CKD-EPI Creatinine Equation (2020) Performed By: #### L 500.4050, L3400.8000, L100.0100 #### [facility] [address] [place], [address] Globulin (S) [Mass/Vol] 3.0 g/dL Normal 2.2-4.2 [facility] Comment on above: Performed By: #### L 500.4050, L3400.8000, L100.0100 #### [facility] [address] [place], [address] Glucose [Mass/Vol] 116 mg/dL High 70-99 [facility] Comment on above: Performed By: #### L 500.4050, L3400.8000, L100.0100 #### [facility] [address] [place], [address] Potassium [Moles/Vol] 4.7 mmol/L Normal 3.3-5.1 [facility] Comment on above: Performed By: #### L 500.4050, L3400.8000, L100.0100 #### [facility] [address] [place], [address] Sodium [Moles/Vol] 131 mmol/L Low 133-145 [facility] Comment on above: Performed By: #### L 500.4050, L3400.8000, L100.0100 #### [facility] [address] [place], [address] T PROT 6.3 g/dL Normal 5.9-8.4 [facility] Comment on above: Performed By: #### L 500.4050, L3400.8000, L100.0100 #### [facility] [address] [place], [address] Urea nitrogen [Mass/Vol] 21 mg/dL High 4-19 [facility] Comment on above: Performed By: #### L 500.4050, L3400.8000, L100.0100 #### [facility] [address] [place], [place], [id number] (558) Eosinophil percentageOrdered By: Patricia Baugh on 03-15-2025 Eosinophils/100 WBC (Bld) 0.0 % 0-5 [facility] Erythrocyte distribution wid th ratioOrdered By: Patricia Baugh on 03-15-2025 Erythrocyte distribution width (RBC) [Ratio] 13.5 % 11.6-14.6 [facility] Erythrocyte distribution wid th standard deviationOrdered By: Patricia Baugh on 03-15-2025 Erythrocyte distribution width (RBC) [Ratio] 40.8 fl 35.1-43.9 [facility] Glomerular filtration rate ( GFR) estimation/1.73 sq m using serum, plasma, or whole bOrdered By: Patricia Baugh on 03-15-2025 GFR/1.73 sq M.predicted among non-blacks MDRD (S/P/Bld) [Vol rate/Area] 127 mL/min/{1.73_m2} >60 [facility] Comment on above: mL/min/1.73m2 CKD-EP I Creatinine Equation (2020) Hematocrit Auto (Bld) [Volum e fraction]Ordered By: Patricia Baugh on 03-15-2025 Hematocrit (Bld) [Volume fraction] 38.5 % Low 40-54 [facility] Hemoglobin measurementOrdere d By: Patricia Baugh on 03-15-2025 Hemoglobin (Bld) [Mass/Vol] 13.3 g/dL 13.0-16.5 [facility] Immature granulocytes/100 WB C Auto (Bld)Ordered By: Patricia Baugh on 03-15-2025 Immature granulocytes/100 WBC (Bld) 0.800 % 0.0-0.9 [facility] Comment on above: IG% - Immature Granu locytes (promyelocytes, myelocytes and metamyelocytes) > 1% indicates that a LEFT SHIFT is Present. Laboratory - Chemistry and C hemistry - challengeOrdered By: Patricia Baugh on 03-15-2025 AST [Catalytic activity/Vol] 10 U/L <38 [facility] MCV (mean corpuscular volume ) determinationOrdered By: Patricia Baugh on 03-15-2025 MCV (RBC) [Entitic vol] 83.2 fL 80-94 [facility] Mean corpuscular hemoglobin (MCH) determinationOrdered By: Patricia Baugh on 03-15-2025 MCH (RBC) [Entitic mass] 28.7 pg 27.0-32.0 [facility] Mean corpuscular hemoglobin concentration (MCHC) determinationOrdered By: Patricia Baugh on 03-15-2025 MCHC (RBC) [Mass/Vol] 34.5 g/dL 32-36 [facility] Mean platelet volume determi nationOrdered By: Patricia Baugh on 03-15-2025 Platelet mean volume (Bld) [Entitic vol] 8.7 fL 6.2-12.0 [facility] Monocyte percentageOrdered B y: Patricia Baugh on 03-15-2025 Monocytes/100 WBC (Bld) 4.6 % 0-10 [facility] Neutrophil percentageOrdered By: Patricia Baugh on 03-15-2025 Neutrophils/100 WBC (Bld) 90.3 % High 47-70 [facility] Nucleated red blood cell per centageOrdered By: Patricia Baugh on 03-15-2025 Nucleated RBC/100 WBC (Bld) [Ratio] 0 % 0-5 [facility] Platelet countOrdered By: Isamar Baugh on 03-15-2025 Platelets (Bld) [#/Vol] 614 10*3/uL High 150-450 [facility] Platelet estimateOrdered By: Patricia Baugh on 06-04-2025 Platelets LM Ql (Bld) MKD DEC ADEQ [facility] Potassium measurement (mass/ volume)Ordered By: Patricia Baugh on 03-15-2025 Potassium (Unsp spec) [Mass/Vol] 4.7 mmol/L 3.3-5.1 [facility] Qualitative QuantiFERON-TB g old in tube testOrdered By: Patricia Baugh on 03-15-2025 M. tuberculosis tuberculin stim IFN-g Ql (Bld) 0.01 IU/mL . [facility] RBC Auto (Bld) [#/Vol]Ordere d By: Patricia Baugh on 03-15-2025 RBC (Bld) [#/Vol] 4.63 10*6/uL 4.6-6.2 [facility] Serum creatinine measurement (mass/volume)Ordered By: Patricia Baugh on 03-15-2025 Creatinine [Mass/Vol] 0.76 mg/dL 0.70-1.20 [facility] Serum globulin measurementOr dered By: Patricia Baugh on 03-15-2025 Globulin (S) [Mass/Vol] 3.0 g/dL 2.2-4.2 [facility] Serum glucose measurement (m ass/volume)Ordered By: Patricia Baugh on 03-15-2025 Glucose [Mass/Vol] 116 mg/dL High 70-99 [facility] Serum or plasma alanine madden otransferase (ALT) measurementOrdered By: Patricia Baugh on 03-15-2025 ALT [Catalytic activity/Vol] 12 U/L <47 [facility] Serum or plasma albumin adeola urement (mass/volume)Ordered By: Patricia Baugh on 03-15-2025 Albumin [Mass/Vol] 3.4 g/dL Low 3.5-5.0 [facility] Serum or plasma albumin/glob ulin mass ratioOrdered By: Patricia Baugh on 03-15-2025 Albumin/Globulin [Mass ratio] 1.1 {ratio} 0.9-2.4 [facility] Serum or plasma alkaline jaret sphatase measurementOrdered By: Patricia Baugh on 03-15-2025 ALP [Catalytic activity/Vol] 98 U/L 40-129 [facility] Serum or plasma calcium adeola urement (mass/volume)Ordered By: Patricia Baugh on 03-15-2025 Calcium [Mass/Vol] 9.0 mg/dL 7.6-11.0 [facility] Serum or plasma urea nitroge n measurement (mass/volume)Ordered By: Patricia Baugh on 03-15-2025 Urea nitrogen [Mass/Vol] 21 mg/dL High 4-19 [facility] Sodium levelOrdered By: Danilo Baugh on 03-15-2025 Sodium [Moles/Vol] 131 mmol/L Low 133-145 [facility] Total proteinOrdered By: Betty Baugh on 03-15-2025 Protein [Mass/Vol] 6.3 g/dL 5.9-8.4 [facility] Toxic leukocyte granulation detectionOrdered By: Patricia Baugh on 03-15-2025 Toxic granules LM Ql (Bld) 3+ [facility] White blood cell (WBC) count Ordered By: Patricia Baugh on 03-15-2025 WBC (Bld) [#/Vol] 22.2 10*3/uL High 4.4-11.0 [facility] Gastroenterology Visit Repor ton 03-14-2025 Gastroenterology Visit Report [facility] [address] [place] [address] OFFICE VISIT Date of Service: 03/14/25 MR#: [id number] Acct: [id number] Name: WILBER DOBBINS Rep #: [id number] : 2000 Provider: LAM Meade Age/Sex: 24/M [place] [facility] [place]: Signed Intake Vital Signs 03/08/25 06:43 03/14/25 10:08 Height 5 ft 10 in 5 ft 10 in Weight: 106 lb 6 oz BMI 15.3 Intake Visit Reasons: Test Result Chief Complaint: diarrhea Allergies No Known Allergies Allergy (Verified 03/08/25 06:42) Nurse's Note: OV 03/14/25 Pt here for f/u and reports he is still having diarrhea, abdominal pain, gas and bloating. Pt continues prednisone daily. PFSH Medical History History of steroid therapy Wears contact lenses Wears glasses Alcohol use Ankylosing spondylitis Psoriatic arthritis History of GI bleed Former smoker Surgical History History of colonoscopy History of rhinoplasty Social History household members: spouse housing: house Smoking Status: Former smoker HPI HPI Chief Complaint: diarrhea Details: WILBER DOBBINS, is a 24 M who presents to the office today for f/u. CT abd/pelvis 25: *No acute findings in the abdomen and pelvis. *No evidence of nephrolithiasis or hydronephrosis. *Moderate colonic stool. BGI established 5.20.24 after 3 weeks of bloody diarrhea and abd cramping endorsing weight loss. Minimal relief with dicyclomine, cipro and budesonide. Hx of psoriatic arthritis ankylosing spondylitis. Pt previously on Humira but was discontinued a few months ago. last colonoscopy was 6 years ago with normal findings Stool 5..25; lactoferrin positive, enteric path negative, c.dif negative Colonoscopy 03.08.25 - Severe (Guerrero Score 3) pancolitis ulcerative colitis, new since the last examination. Biopsied. - Stool in the descending colon and at the hepatic flexure. Fluid aspiration performed. *Started on Prednisone 40 mg TID and hydrocortisone enemas twice daily x 1 month OV 6..25 Pt continues to have 10 loose bm per day. He is unable to eat anything without diarrhea. He is able to eat bland foods like mash potatoes and wafers. He has nocturnal symptoms that wake him up every 30 minutes. Continues to loss weight. ROS Const Constitutional: Positive for fatigue and weight change; No fever(s) ENT ENT: No difficulty swallowing Gastro GI: Positive for abdominal pain, bloating, diarrhea, heartburn, excessive flatus and Blood in stool; No belching, change in bowel habits, change in stool character, coffee ground emesis, constipation, cramping, difficulty swallowing, feeling full early, incontinent of stools, Vomiting blood/hematemesis, loose stools, Black,tarry stools, nausea/dyspepsia, pain with swallowing, vomiting or other Musc Musculoskeletal: Positive for muscle cramps; No joint pain Skin Skin: No yellowing of the eye or itchy eyes Psych Psychiatric: No anxiety and No depression Endo Endocrine: Positive for fatigue and weight change Aller/Imm Allergy/Immunologic: No itchy eyes Vincent/Lymp Hematologic/Lymphatic: No easy bleeding or easy bruising Exam Const General: cooperative Nutritional Appearance: underweight Resp Effort Inspection: normal respiratory effort Cardio Rate: regular rate Rhythm: regular rhythm GI Inspection: normal to inspection Auscultation: normal bowel sounds Palpation: soft, no guarding and nontender Assessment and Plan Assessment and Plan (1) Ulcerative colitis: Status: Acute Plan: Wilber is a 24 yo male pt presenting today after colonoscopy. Pt underwent colonoscopy 03.08.25 for diarrhea and weight loss over samy past month. Colonoscopy showing ulcerative colitis with a Guerrero score of 3. Path stills pending. Fluid culture was negative for c.dif or other infection. he was started on Prednisone 40 mg TID and hydrocortisone enemas. He continues to have diarrhea with up to 10 bm per day. He is sleeping for only a half hour at a tiem due to symptoms. Since January 19 he has lost about 30 lbs unintentionally. He is eating mostly bland foods. I have decreased his Prednisone to 40 mg BID for two days and then he will take 40 mg daily for two weeks, 30 mg daily for 2 weeks, 20 mg daily for two weeks and 10 mg daily for two weeks. He will continues hydrocortisone enemas. I have ordered Tb test so we may start the process for Humira. He will complete stool testing for enteric pathogens, c.dif and calprotectin. in the interim he will start nutritional shake like ensure to get adequate caloric intake. -Taper prednisone 40 mg BID for two days, 40 mg daily for 2 weeks, 30 mg daily for 2 weeks, 20 mg daily for two weeks and 10 mg daily (more content not included)... Normal [facility] Colonoscopy Reporton 025 Colonoscopy Report [facility] Medical Records Department [address] [place] [address] Colonoscopy Report MR#: [id number] Acct: [id number] Name: WILBER DOBBINS Rep #: [id number] : 2000 24 From: Blair Friend DO PCP: GIOVANI Hayes Status:REG [facility] [place] Patient Name: Wilber Dobbins Procedure Date: 03/08/2025 7:35 AM Date of : 2000 Age: 24 Procedure: Colonoscopy Indications: Suspected chronic ulcerative pancolitis Providers: DO Ritu Armenta MD: Giovani Hayes Medicines: Monitored Anesthesia Care Patient Profile: This is a 24 year old male. Refer to note in patient chart for documentation of history and physical. Last Colonoscopy: none. The patient's first colonoscopy is today. Complications: No immediate complications. Procedure: Pre-Anesthesia Assessment: - Prior to the procedure, a History and Physical was performed, and patient medications and allergies were reviewed. The patient is competent. The risks and benefits of the procedure and the sedation options and risks were discussed with the patient. All questions were answered and informed consent was obtained. Patient identification and proposed procedure were verified by the nurse in the pre-procedure area. Mental Status Examination: alert and oriented. Airway Examination: normal oropharyngeal airway and neck mobility. Respiratory Examination: clear to auscultation. CV Examination: normal. Prophylactic Antibiotics: The patient does not require prophylactic antibiotics. Prior Anticoagulants: The patient has taken no anticoagulant or antiplatelet agents. ASA Grade Assessment: II - A patient with mild systemic disease. After reviewing the risks and benefits, the patient was deemed in satisfactory condition to undergo the procedure. The anesthesia plan was to use monitored anesthesia care (MAC). Immediately prior to administration of medications, the patient was re-assessed for adequacy to receive sedatives. The heart rate, respiratory rate, oxygen saturations, blood pressure, adequacy of pulmonary ventilation, and response to care were monitored throughout the procedure. The physical status of the patient was re-assessed after the procedure. After I obtained informed consent, the scope was passed under direct vision. Throughout the procedure, the patient's blood pressure, pulse, and oxygen saturations were monitored continuously. The colonoscope was introduced through the anus and advanced to the terminal ileum. The colonoscopy was performed without difficulty. The patient tolerated the procedure well. The quality of the bowel preparation was adequate. The ileocecal valve, appendiceal orifice, and rectum were photographed. Scope In: 7:40:12 AM Scope Withdrawal Time 0 hours 6 minutes 30 seconds Scope Out: 7:50:18 AM Total Procedure Duration Time 0 hours 10 minutes 6 seconds Findings: The perianal and digital rectal examinations were normal. Inflammation was found in a continuous and circumferential pattern from the anus to the cecum. This was graded as Guerrero Score 3 (severe, with spontaneous bleeding, ulcerations), and when compared to the previous examination, the findings are new. Biopsies were taken with a cold forceps for histology. Verification of patient identification for the specimen was done. Estimated blood loss was minimal. Stool was found in the descending colon and at the hepatic flexure. Fluid aspiration for bacterial cultures and Clostridium difficile was performed. Impression: - Severe (Guerrero Score 3) pancolitis ulcerative colitis, new since the last examination. Biopsied. - Stool in the descending colon and at the hepatic flexure. Fluid aspiration performed. Recommendation: - Discharge patient to home. - Resume previous diet. - Continue present medications. - Await pathology results. - Repeat colonoscopy to evaluate the response to therapy. - Prednisone 40 mg 3 times a day - Hydrocortisone enemas twice daily x 1 month - Possible antibiotics pending cultures Procedure Code(s): --- Professional --- 91388, Colonoscopy, flexible; with biopsy, single or multiple CPT copyright 2021 [employer]. All rights reserved. The codes documented in this report are preliminary and upon retail operations manager review may be revised to meet current compliance requirements. Blair Odell DO 03/08/2025 7:55:14 AM This report has been signed electronically. Number of Addenda: 0 Note Initiated On: 03/08/2025 7:35 AM 03/08/25 0755 Date Blair Odell DO Cosigner Signature: Date (if indicated) CC: GIOVANI Dobbins; Blair Odell DO Date Dictated: 03/08/25 0735 Date Transcribed: Master Technician: RF Signed Normal [facility] ENTERIC PATHOGEN PANEL STOOL on 03-08-2025 EP PANEL CAMPYLOBACTER Not Detected Norovirus Not Detected Rotavirus Not Detected Salmonella Not Detected Shiga Toxin Not Detected Shigella sp. Not Detected VIBRIO Not Detected Yersinia Not Detected Normal [facility] Comment on above: Performed By: #### L 100.0100, L3410.9992, L500.6840, L3410.4880, L500.9625 #### [facility] [place] [address] [place], [address] Immunohistochemical Stainson 03-08-2025 Immunohistochemical Stains ---- Patient Age/Sex Location Account Attending Physician ---- WILBER DOBBINS 24/M EN [id number] Blair Odell DO ---- Specimen: [id number] Received: 03/08/25 Status: RICHMOND Polanco Num: [id number] Spec Type: COLON BX Subm Dr: Blair Odell DO HEADER OPERATION: Colonoscopy and biopsy PRE-OP DIAGNOSIS: Chronic diarrhea, lower GI bleeding, weight loss TISSUE SUBMITTED: A- Right side colon and cecum biopsy, B- Left side colon biopsy, C- Rectal biopsy ---- MICROSCOPIC DIAGNOSIS A. Colon, right side and cecum, biopsy: * Colonic mucosa with acute inflammation, ulceration, and mild crypt distortion - see Comment. * No granulomas or dysplasia seen. * IHC for CMV is negative. B. Colon, left side, biopsy: * Colonic mucosa with acute inflammation, ulceration, and mild crypt distortion - see Comment. * No granulomas or dysplasia seen. * IHC for CMV is negative. C. Rectum, biopsy: * Colonic mucosa with acute inflammation, superficial erosion, moderate crypt distortion and basilar lymphoplasmacytosis - see Comment. * No granulomas or dysplasia seen. * IHC for CMV is negative. COMMENT: The histologic differential diagnosis includes infection, medication injury, and early/evolving inflammatory bowel disease. Recommend correlation with clinical, endoscopic, microbiology, and imaging findings. MICROSCOPIC DESCRIPTION Slides are reviewed. All matched controls reacted appropriately. These tests were developed and their performance characteristics determined by [facility]. They may not have been cleared or approved by the U.S. Food and Drug Administration. The FDA has determined that such clearance or approval is not necessary.??? The above immunohistochemical/du alISH???markers are ordered and reviewed by the Pathologist. ---- Patient Age/Sex Location Account Attending Physician ---- WILBER DOBBINS 24/M EN [id number] Blair DO Cass ---- GROSS DESCRIPTION A. Received in formalin in a container labeled with the patient's name, date of , and biopsy right side of colon and cecum are multiple alonzo-pink fragments of mucosal tissue measuring 1.3 x 0.7 x 0.2 cm in aggregate. Submitted in toto in A1. B. Received in formalin in a container labeled with the patient's name, date of , and biopsy left side of colon are multiple alonzo-pink fragments of mucosal tissue measuring 2.0 x 0.5 x 0.2 cm in aggregate. Submitted in toto in B1. C. Received in formalin in a container labeled with the patient's name, date of , and rectal biopsy are 2 alonzo-pink fragments of mucosal tissue, each measuring 0.3 x 0.2 x 0.2 cm. Submitted in toto in C1. [facility] 03-08-2025 CPT:16522z6,12171e9 ---- Patient Age/Sex Location Account Attending Physician ---- SHILPI,WILBER ANDERSENIAN 24/M EN [id number] Blair Odell DO ---- Signed (signature on file) Dr. Rossy Carranza MD 03/14/25 1355 ---- Normal [facility] Comment on above: Performed By: #### L 100.0100, L3410.9992, L500.4100, L3410.2400, L500.4050 #### [facility] [address] [place], [place], [address] MR/POSTOP.[place] 03-08-2025 MR/POSTOP.[facility] Medical Records Department [address] [place] [address] Anesthesia Postop Eval I 03/08/25 0802 MR#: [id number] Acct: [id number] Name: CATRACHITA DOBBINSLUCIO ANDERSENIAN Rep #: [id number] : 2000 24 From: Prosper Daly PCP: Eve Dobbins CALL SPECIALISTFrankC Status:REG SDC Y Race: C Location: [place] [address] Anesthesia: Postop Eval I Current Vital Signs Temperature: 97.8 F Pulse Rate: 67 Blood Pressure: 112/76 Respiratory Rate: 16 Pulse Ox: 100 Oxygen Delivery Method: Room Air Assessment Airway patent: Yes Spontaneous unlabored respirations: Yes Mental status: Awake and Calm nausea: No Vomiting: No Anesthesia Complication: No Fluid Hydration Crystalloid volume administer (ml): 500 Total IV fluid infused: 500 Progress Note Anesthesia document: Postop Eval 1 completed: Yes 03/08/25 08 Date Prosper Castilloigner Signature: Date CC: Signed Normal [facility] MR/[id number] [facility]-08-2025 [facility] Medical Records Department [address] [place] [address] Anesthesia Postop Eval II 03/08/25812 MR#: [id number] Acct: [id number] Name: SHILPIWILBER NAVARRO Rep #: [id number] : 2000 24 From: Candida Harrell PCP: GIOVANI Hayes Status:REG [facility] [place] Y Race: C Location: [place] [address] Anesthesia Postop Eval I Sum Postop Eval Completion status Anesthesia document: Postop Eval 1 completed: Yes Anesthesia Postop Eval I Summary Anesthesia Postop Eval I Summary: Anesthesia Postop Eval I: Assessment Summary Airway patent Yes 03/08/25 08:02 [email or web address] Spontaneous unlabored Yes 03/08/25 08:02 [email or web address] respirations Mental status Awake,Calm 03/08/25 08:02 [email or web address] nausea No 03/08/25 08:02 [email or web address] Vomiting No 03/08/25 08:02 [email or web address] Anesthesia Postop Eval I: Fluid Summary Crystalloid volume administer 500 03/08/25 08:02 [email or web address] (ml) Colloids volume administered ( ml) Blood Product volume administered (ml) Total IV fluid infused 500 03/08/25 08:02 [email or web address] Anesthesia Postop Eval I: Summary Notes Anesthesia Complication No 03/08/25 08:02 [email or web address] Anesthesia Complication Comment: Post-operative progress note Anesthesia: Postop Eval II Evaluation Mental status: Calm Pain Level: 0 nausea: No Vomiting: No 03/08/25 0813 Date Candida Castilloignjulia Signature: Date CC: Signed Normal [facility] Absolute lymphocyte countOrd ered By: Zi Wilkins on 03-02-2025 Lymphocytes Auto (Unsp spec) [#/Vol] 2.34 10*3/uL 0.83-4.51 [facility] Absolute neutrophil countOrd ered By: Zicriss Wilkins on 03-02-2025 Neutrophils (Bld) [#/Vol] 15.0 10*3/uL High 2.0-7.7 [facility] Anion gap in Serum or Plasma Ordered By: Zi Wilkins on 03-02-2025 Anion gap [Moles/Vol] 14 mmol/L 5-15 [facility] Automated lymphocyte count a s percentage of total leukocytesOrdered By: Zi Wilkins on 03-02-2025 Lymphocytes/100 WBC Auto (Unsp spec) 10.3 % Low 19-41 [facility] BUN/creatinine ratioOrdered By: Zi Wilkins on 03-02-2025 Urea nitrogen/Creatinine [Mass ratio] 11.0 mg/mg 10-20 [facility] Basophil percentageOrdered B y: Zi Wilkins on 03-02-2025 Basophils/100 WBC (Bld) 0.4 % 0-1 [facility] Bilirubin, totalOrdered By: Zi Wilkins on 03-02-2025 Bilirubin [Mass/Vol] 0.44 mg/dL 0.00-1.30 [facility] Carbon dioxide, total [Moles /volume] in Central venous bloodOrdered By: Zi Wilkins on 03-02-2025 CO2 [Moles/Vol] 24.7 mmol/L 21.0-32.0 [facility] Chloride assayOrdered By: Ug criss Wilkins on 03-02-2025 Chloride [Moles/Vol] 96 mmol/L Low 98-108 [facility] Comprehensive Metabolic Prof ilon 03-02-2025 Albumin [Mass/Vol] 3.6 g/dL Normal 3.5-5.0 [facility] Comment on above: Performed By: #### L 500.4050, L100.0100 #### [facility] [address] [place], [address] Albumin/Globulin [Mass ratio] 0.8 {ratio} Low 0.9-2.4 [facility] Comment on above: Performed By: #### L 500.4050, L100.0100 #### [facility] [address] [place], [address] ALK PHOS 90 U/L Normal 40-129 [facility] Comment on above: Performed By: #### L 500.4050, L100.0100 #### [facility] [address] [place], [address] ALT [Catalytic activity/Vol] 8 U/L Normal <=46 [facility] Comment on above: Performed By: #### L 500.4050, L100.0100 #### [facility] [address] [place], [address] AST [Catalytic activity/Vol] 10 U/L Normal <=37 [facility] Comment on above: Performed By: #### L 500.4050, L100.0100 #### [facility] [address] [place], [address] Bilirubin [Mass/Vol] 0.44 mg/dL Normal 0.00-1.30 [facility] Comment on above: Performed By: #### L 500.4050, L100.0100 #### [facility] [address] [place], [address] BUN/CRE 11.0 RATIO Normal 10-20 [facility] Comment on above: Performed By: #### L 500.4050, L100.0100 #### [facility] [address] [place], [address] Calcium [Mass/Vol] 9.3 mg/dL Normal 7.6-11.0 [facility] Comment on above: Performed By: #### L 500.4050, L100.0100 #### [facility] [address] [place], [address] Chloride [Moles/Vol] 96 mmol/L Low 98-108 [facility] Comment on above: Performed By: #### L 500.4050, L100.0100 #### [facility] [address] [place], [address] CO2 [Moles/Vol] 24.7 mmol/L Normal 21.0-32.0 [facility] Comment on above: Performed By: #### L 500.4050, L100.0100 #### [facility] [address] [place], [address] Creatinine [Mass/Vol] 0.85 mg/dL Normal 0.70-1.20 [facility] Comment on above: Performed By: #### L 500.4050, L100.0100 #### [facility] [address] [place], [address] ECRCL 98.35 ml/min Normal 50-250 [facility] Comment on above: Performed By: #### L 500.4050, L100.0100 #### [facility] [address] [place], [address] GAP 14 Normal 5-15 [facility] Comment on above: Performed By: #### L 500.4050, L100.0100 #### [facility] [address] [place], [address] GFR/1.73 sq M.predicted among non-blacks MDRD (S/P/Bld) [Vol rate/Area] 123 mL/min/{1.73_m2} Normal >60 [facility] Comment on above: Result Comment: mL/m in/1.73m2 CKD-EPI Creatinine Equation (2020) Performed By: #### L 500.4050, L100.0100 #### [facility] [address] [place], [address] Globulin (S) [Mass/Vol] 4.3 g/dL High 2.2-4.2 [facility] Comment on above: Performed By: #### L 500.4050, L100.0100 #### [facility] [address] [place], [address] Glucose [Mass/Vol] 104 mg/dL High 70-99 [facility] Comment on above: Performed By: #### L 500.4050, L100.0100 #### [facility] [address] [place], [address] Potassium [Moles/Vol] 3.6 mmol/L Normal 3.3-5.1 [facility] Comment on above: Performed By: #### L 500.4050, L100.0100 #### [facility] [address] [place], [address] Sodium [Moles/Vol] 134 mmol/L Normal 133-145 [facility] Comment on above: Performed By: #### L 500.4050, L100.0100 #### [facility] [address] [place], [address] T PROT 7.8 g/dL Normal 5.9-8.4 [facility] Comment on above: Performed By: #### L 500.4050, L100.0100 #### [facility] [address] [place], [address] Urea nitrogen [Mass/Vol] 9 mg/dL Normal 4-19 [facility] Comment on above: Performed By: #### L 500.4050, L100.0100 #### [facility] [address] [place], [address] Emergency Department Summary on 03-02-2025 Emergency Department Summary [facility] Medical Records Department [address] [place] [address] Emergency Department Summary 03/02/25 MR#: [id number] Acct: [id number] Name: WILBER DOBBINS Rep #: [id number] : 2000 24 From: Zi Wilkins MD PCP: BERNADETTE HayesC Status:REG ER Location: ED HPI History of Present Illness Chief Complaint: Abd Pain Detail of Chief Complaint: Abdominal pain, diarrhea and unintentional weight loss Informant: patient Onset/Context/Timing Onset: Month(s) (Approximately 1 month) Context: Sudden Onset Timing: Intermittent and Waxes and wanes Quality: gnawing discomfort Location: Generalized Current Severity: Mild Maximum Severity: Moderate Worsened by: If he eats or drinks anything Relieved by: Not been Associated Symptoms Associated Symptoms: HPI narrative for complete detail Narrative Narrative: Patient is a 24-year-old male. He has history of psoriatic arthritis on no medication and ankylosing spondylitis who presents with a gnawing generalized abdominal discomfort that started approximate month ago with diarrhea up to 20 times per day. There is no family history of Crohn's or ulcerative colitis. There is a paternal grandmother with history of colon cancer. Age of diagnosis is unknown. Patient presents because of feeling generalized weakness with no energy to get up. He does endorse intermittent orthostatic symptoms. He does endorse thirst and dry mouth. Patient denies decreased urine output. Patient not been able to work since last , February 23. Patient does have night sweats. He denies bone pain other than bilateral hip pain due to his psoriatic arthritis. He is on no medication because he was without insurance until recently. He was seen by nurse practitioner at Dr. Odell's office. Note authored by LAM Gomez was reviewed. Patient did have stool studies which were unremarkable other than elevated white count. He is scheduled for a colonoscopy this coming Thursday. Based on her note there is a history of ulcerative colitis in the family. Patient has intermittent headache. He denies double vision blurred vision loss of vision. There is no trouble with his hearing. He denies cardiac or respiratory symptoms. He has had mucus in his stool for some time. He had a colonoscopy approximately 6 years ago because of blood in his stool. To his knowledge it was unremarkable. Prior similar symptoms: Yes Recent Illness/Hospitalizatio n: Yes PFSH PFSH Home Medications ???Medication ???Instructions ???Recorded ???Last Taken ???Type budesonide 9 mg tablet,delayed and 9 mg PO QAM 02/28/25 Unknown His tory extended release amoxicillin 875 mg-potassium 875 mg PO Q12H #14 TABLETS 5 Unknown Rx clavulanate 125 mg tablet prednisone 20 mg tablet 40 mg (2 x 20 mg) PO DAILY #20 Unknown Rx TABLETS Allergy/AdvReac Type Severity Reaction Status Date / Time No Known Allergies Allergy Verified 03/02/25 15:24 Social History household members: spouse housing: house Smoking Status: Never smoker ROS ROS ED Constitutional Constitutional ED: Reports sweats and weight loss; Denies chills, fever(s) or subjective Eyes Eyes: Denies blurry vision or change in vision ENT ENT ED: Denies rhinorrhea or sore throat Cardiovascular Cardiovascular: Denies chest pain or palpitations Respiratory/Chest Respiratory/Chest: Denies cough, dyspnea or dyspnea on exertion Gastrointestinal Gastrointestinal: Reports abdominal pain, diarrhea, nausea and other Details: Nausea started past several days. Episode of vomiting this morning. ; Denies constipation, melena or vomiting Genitourinary Genitourinary ED: Denies dysuria, hematuria or urinary frequency Musculoskeletal Musculoskeletal: Reports other Details: Bilateral hip pain due to psoriatic arthritis. ; Denies arthralgias, back pain, myalgias or neck pain Integumentary Denies rash Neurologic Neurologic: Reports weakness; Denies headache(s) or paresthesias Hematologic/Lymphatic Hematologic/Lymphatic: Reports systems reviewed and no addt'l complaints, except as documented EXAM Physical Exam Const Vital Signs: 03/02/25 15:24 03/02/25 16:45 03/02/25 16:46 Temperature 98.8 F Temperature Source Oral Pulse Rate 97 72 Pulse Rate [Lying] 71 Pulse Rate [Sitting (for 1 minute prior to obtaining)] 64 Pulse Rate [Standing (for 1 minute prior to obtaining)] 75 Respiratory Rate 16 16 Blood Pressure 126/89 H Blood Pressure [Lying] 121/65 H Blood Pressure [Sitting (for 1 minute prior to obtaining)] 127/79 H Blood Pressure [Standing (for 1 minute prior to obtaining)] 119/76 Blood Pressure Mean 101 Blood Pressure Mean [Lying] 83 Blood Pressure Mean [Sitting (for 1 minute prior to obtainin (more content not included)... Normal [facility] Eosinophil percentageOrdered By: Zi Wilkins on 03-02-2025 Eosinophils/100 WBC (Bld) 6.2 % High 0-5 [facility] Erythrocyte distribution wid th ratioOrdered By: Zi Wilkins on 03-02-2025 Erythrocyte distribution width (RBC) [Ratio] 13.2 % 11.6-14.6 [facility] Erythrocyte distribution wid th standard deviationOrdered By: Zicriss Wilkins on 03-02-2025 Erythrocyte distribution width (RBC) [Ratio] 40.2 fl 35.1-43.9 [facility] Glomerular filtration rate ( GFR) estimation/1.73 sq m using serum, plasma, or whole bOrdered By: Zi Wilkins on 03-02-2025 GFR/1.73 sq M.predicted among non-blacks MDRD (S/P/Bld) [Vol rate/Area] 123 mL/min/{1.73_m2} >60 [facility] Comment on above: mL/min/1.73m2 CKD-EP I Creatinine Equation (2020) Hematocrit Auto (Bld) [Volum e fraction]Ordered By: Zi Wilkins on 03-02-2025 Hematocrit (Bld) [Volume fraction] 38.0 % Low 40-54 [facility] Hemoglobin measurementOrdere d By: Zi Wilkins on 03-02-2025 Hemoglobin (Bld) [Mass/Vol] 13.0 g/dL 13.0-16.5 [facility] Immature granulocytes/100 WB C Auto (Bld)Ordered By: Zi Wilkins on 03-02-2025 Immature granulocytes/100 WBC (Bld) 0.800 % 0.0-0.9 [facility] Comment on above: IG% - Immature Granu locytes (promyelocytes, myelocytes and metamyelocytes) > 1% indicates that a LEFT SHIFT is Present. Laboratory - Chemistry and C hemistry - challengeOrdered By: Zi Wilkins on 03-02-2025 AST [Catalytic activity/Vol] 10 U/L <38 [facility] MCV (mean corpuscular volume ) determinationOrdered By: Zicriss Wilkins on 03-02-2025 MCV (RBC) [Entitic vol] 83.7 fL 80-94 [facility] Mean corpuscular hemoglobin (MCH) determinationOrdered By: Zicriss Wilkins on 03-02-2025 MCH (RBC) [Entitic mass] 28.6 pg 27.0-32.0 [facility] Mean corpuscular hemoglobin concentration (MCHC) determinationOrdered By: Zicriss Wilkins on 03-02-2025 MCHC (RBC) [Mass/Vol] 34.2 g/dL 32-36 [facility] Mean platelet volume determi nationOrdered By: Zicriss Wilkins on 03-02-2025 Platelet mean volume (Bld) [Entitic vol] 9.0 fL 6.2-12.0 [facility] Monocyte percentageOrdered B y: Zi Wilkins on 03-02-2025 Monocytes/100 WBC (Bld) 16.1 % High 0-10 [facility] Neutrophil percentageOrdered By: Zicriss Wilkins on 03-02-2025 Neutrophils/100 WBC (Bld) 66.2 % 47-70 [facility] Nucleated red blood cell per centageOrdered By: Zicriss Wilkins on 03-02-2025 Nucleated RBC/100 WBC (Bld) [Ratio] 0 % 0-5 [facility] Platelet countOrdered By: [facility] on 03-02-2025 Platelets (Bld) [#/Vol] 632 10*3/uL High 150-450 [facility] Platelet estimateOrdered By: Zicriss Wilkins on 03-02-2025 Platelets LM Ql (Bld) MKD INC ADEQ [facility] Potassium measurement (mass/ volume)Ordered By: Zi Wilkins on 03-02-2025 Potassium (Unsp spec) [Mass/Vol] 3.6 mmol/L 3.3-5.1 [facility] RBC Auto (Bld) [#/Vol]Ordere d By: Zi Wilkins on 03-02-2025 RBC (Bld) [#/Vol] 4.54 10*6/uL Low 4.6-6.2 [facility] Review by pathologistOrdered By: Zi Wilkins on 03-02-2025 Pathologist review Martin (Unsp spec) [Interp] Reviewed [facility] Comment on above: SEE REPORT IN PATIEN T'S EMR Serum creatinine measurement (mass/volume)Ordered By: Zi Wilkins on 03-02-2025 Creatinine [Mass/Vol] 0.85 mg/dL 0.70-1.20 [facility] Serum globulin measurementOr dered By: Zi Wilkins on 03-02-2025 Globulin (S) [Mass/Vol] 4.3 g/dL High 2.2-4.2 [facility] Serum glucose measurement (m ass/volume)Ordered By: Zi Wilkins on 03-02-2025 Glucose [Mass/Vol] 104 mg/dL High 70-99 [facility] Serum or plasma alanine madden otransferase (ALT) measurementOrdered By: Zi Wilkins on 03-02-2025 ALT [Catalytic activity/Vol] 8 U/L <47 [facility] Serum or plasma albumin adeola urement (mass/volume)Ordered By: Zi Wilkins on 03-02-2025 Albumin [Mass/Vol] 3.6 g/dL 3.5-5.0 [facility] Serum or plasma albumin/glob ulin mass ratioOrdered By: Zicriss Wilkins on 03-02-2025 Albumin/Globulin [Mass ratio] 0.8 {ratio} Low 0.9-2.4 [facility] Serum or plasma alkaline jaret sphatase measurementOrdered By: Zicriss Wilkins on 03-02-2025 ALP [Catalytic activity/Vol] 90 U/L 40-129 [facility] Serum or plasma calcium adeola urement (mass/volume)Ordered By: Zi Wilkins on 03-02-2025 Calcium [Mass/Vol] 9.3 mg/dL 7.6-11.0 [facility] Serum or plasma urea nitroge n measurement (mass/volume)Ordered By: [facility] on 03-02-2025 Urea nitrogen [Mass/Vol] 9 mg/dL 4-19 [facility] Sodium levelOrdered By: [facility] on 03-02-2025 Sodium [Moles/Vol] 134 mmol/L 133-145 [facility] Total proteinOrdered By: [facility] on 03-02-2025 Protein [Mass/Vol] 7.8 g/dL 5.9-8.4 [facility] White blood cell (WBC) count Ordered By: [facility] on 03-02-2025 WBC (Bld) [#/Vol] 22.7 10*3/uL High 4.4-11.0 [facility] Gastroenterology Visit Repor ton 02-28-2025 Gastroenterology Visit Report [facility] [address] [place] [address] OFFICE VISIT Date of Service: 02/28/25 MR#: [id number] Acct: [id number] Name: WILBER DOBBINS Rep #: [id number] : 2000 Provider: LAM Meade Age/Sex: 24/M Location: [facility] Status: Signed Intake Vital Signs 01/19/25 16:16 Height 5 ft 10 in Intake Visit Reasons: DIARRHEA ABDOMINAL PAIN Chief Complaint: diarrhea Allergies No Known Allergies Allergy (Verified 01/19/25 16:16) Medications ???Medication ???Instructions ???Recorded ???Confirmed ???Type budesonide 9 mg tablet,delayed and 9 mg PO QAM 02/28/25 02/28/25 Hi story extended release Nurse's Note: OV 02/28/25 Pt here to establish care with [facility]. Pt reports nausea, diarrhea, abdominal pain, gas, bloating and blood in stools. Pt reports a 10-15 lb weight loss in the past few weeks. Pt reports prior hx of colonoscopy about 6 years ago. Is currently taking 9mg of busdesonide daily but sees no improvement. PFSH Medical History no medical history Surgical History no surgical history Family History no significant family his Social History household members: spouse housing: house Smoking Status: Never smoker HPI HPI Chief Complaint: diarrhea Details: WILBER DOBBINS, is a 24 M who presents to the office today for establishment with [facility]. [facility] ED 01.19.25 with concern for kidney stone. N/v and left sided flanks pain. Work up unremarkable CT abd/pelvis 01.19.25: *No acute findings in the abdomen and pelvis. *No evidence of nephrolithiasis or hydronephrosis. *Moderate colonic stool. Referred to [facility] from PCP for 3 weeks of bloody diarrhea and abdominal cramping. Pt endorses weight loss. Minimal relief with dicyclomine, cipro and budesonide. Hx of psoriatic arthritis and ankylosing spondylitis. On Humira but discontinues a few months ago. Enbrel for 10 years. Stool 5.6.25; lactoferrin positive, enteric path negative, c.dif negative OV 525 Pt endorses loose stool for about 3 weeks. He is having up to 20 loose stools per day. This is waking up him out of his sleep. It is not post prandial. He endorses a 10-15 lbs weight loss over this time. Prior to this, he was having a daily formed stool with no GI symptoms. He has a family hx of UC and personal hx of autoimmune conditions including psoriatic arthritis and ankylosing spondylitis. He had a colonoscopy about 6 years due to blood in his stool but this was negative. ROS Const Constitutional: Positive for fatigue and weight change; No fever(s) ENT ENT: No difficulty swallowing Gastro GI: Positive for abdominal pain, bloating, change in bowel habits, diarrhea, excessive flatus, Blood in stool and nausea/dyspepsia; No belching, change in stool character, coffee ground emesis, constipation, cramping, heartburn, difficulty swallowing, feeling full early, incontinent of stools, Vomiting blood/hematemesis, loose stools, Black,tarry stools, pain with swallowing, vomiting or other Musc Musculoskeletal: Positive for joint pain, back pain, joint swelling, muscle cramps, muscle weakness, stiffness and Arthritis Skin Skin: No yellowing of the eye or itchy eyes Psych Psychiatric: No anxiety and Positive for depression Endo Endocrine: Positive for fatigue and weight change Aller/Imm Allergy/Immunologic: No itchy eyes Vincent/Lymp Hematologic/Lymphatic: No easy bleeding or easy bruising Exam Const General: cooperative and comfortable Nutritional Appearance: thin Orientation: alert and awake HENUT Head: normal to inspection Eyes General: appearance normal, both eyes and all related structures Neck Neck: normal visual inspection Chest Chest palpation inspection: normal inspection of the chest Resp Effort Inspection: normal respiratory effort and able to speak in complete sentences Auscultation: Bilateral: Clear to Auscultation Cardio Rate: regular rate Rhythm: regular rhythm GI Inspection: normal to inspection Auscultation: normal bowel sounds Palpation: soft Skin General: no rashes or lesions noted Assessment and Plan Assessment and Plan (1) Diarrhea: Status: Acute Plan: This is a 24 yo male pt here today for evaluation of diarrhea x3 weeks associated with weight loss and abdominal pain. Pt has a PMHx of psoriatic arthritis and ankylosing spondylitis and was on Humira but recently discontinued due to INS issues. He endorses a family hx of UC. Work up thus fur with PCP has included stool testing which was negative for enteric paths and c.dif however lactoferrin was positive. He has been on Budesonide which has not provided relief. I will order calprotectin, ESR and CRP. He will be scheduled for colonoscopy as I have high suspicion for UC giv (more content not included)... Normal [facility] L3410.9992on 02-18-2025 [facility] Misc. COMMENT Normal . [facility] Comment on above: Order Comment: [id number] ALLERGEN PROF SER RMT Result Comment: Test Ordered: [id number] Food Allergy Profile Class Description Comment BN Reference Range: . Levels of Specific IgE Class Description of Class ----- < 0.10 0 Negative 0.10 - 0.31 0/I Equivocal/Low 0.32 - 0.55 I Low 0.56 - 1.40 II Moderate 1.41 - 3.90 III High 3.91 - 19.00 IV Very High 19.01 - 100.00 V Very High >100.00 Very High Q948-PvC Egg White <0.10 kU/L BN Reference Range: Class 0 X629-UyV Peanut <0.10 kU/L BN Reference Range: Class 0 M907-OrW Soybean <0.10 kU/L BN Reference Range: Class 0 D211-ZyX Milk <0.10 kU/L BN Reference Range: Class 0 E100-VoL Clam <0.10 kU/L BN Reference Range: Class 0 F144-OrI Shrimp 0.92 [A ] kU/L BN Reference Range: Class II I890-DfF [place] <0.10 kU/L BN Reference Range: Class 0 R092-AfX Codfish <0.10 kU/L BN Reference Range: Class 0 D645-XmP Scallop <0.10 kU/L BN Reference Range: Class 0 E397-QkU Wheat <0.10 kU/L BN Reference Range: Class 0 J620-FlE Lexa 0.25 [A ] kU/L BN Reference Range: Class 0/I M822-SbJ Sesame Seed <0.10 kU/L BN Reference Range: Class 0 Performed at: [facility] [address] [id number] President And Cmo: Marry Gaming MD, Phone: [phone] Performed at: [facility] [address] [id number] President And Cmo: Virgilio Knight PhD, Phone: [phone] Performed By: #### L 100.0100, L3410.9992, L500.4100, L3410.2400, L500.4050 #### [facility] [address] [place] [address], [address] Order Comment: [id number] 4MEAT PROF SER RMT Result Comment: Test Ordered: [id number] Allergen Profile, Food-Meat Class Description Comment Reference Range: . Levels of Specific IgE Class Description of Class ----- < 0.10 0 Negative 0.10 - 0.31 0/I Equivocal/Low 0.32 - 0.55 I Low 0.56 - 1.40 II Moderate 1.41 - 3.90 III High 3.91 - 19.00 IV Very High 19.01 - 100.00 V Very High >100.00 Very High Z422-RqN Pork <0.10 kU/L Reference Range: Class 0 P443-CqL Beef <0.10 kU/L BN Reference Range: Class 0 T274-MhV Chicken <0.10 kU/L BN Reference Range: Class 0 Performed at: [address] [id number] President And Cmo: Marry Gaming MD, Phone: [phone] Performed at: [address] [id number] President And Cmo: Virgilio Knight PhD, Phone: [phone] [facility] COMMENT Normal . [facility] Comment on above: Order Comment: [id number] 1EGG WHITE PROF SER RMT Result Comment: Test Ordered: [id number] I326-PqP Egg White Test(s) [id number] Egg White Results for this test are for Investigational Purposes Only by the assay's molder sweep. The performance characteristics of this product have not been established. Results should not be used as a diagnostic procedure without confirmation of the diagnosis by another medically established diagnostic product or procedure. V563-WjM Egg White 7.8 [H ] ug/mL Reference Range: 0.0-1.9 Performed at: [address] [id number] President And Cmo: Marry Gaming MD, Phone: [phone] Performed at: [address] [id number] President And Cmo: Virgilio Knight PhD, Phone: [phone] Performed By: #### L 100.0100, L3410.9992, L500.4100, L3410.2400, L500.4050 #### [facility] [address] [place], [address] Order Comment: [id number] 0WALNUT PROPF SER RMT Result Comment: Test Ordered: [id number] L006-HsE [place] Test(s) [id number] [place] Results for this test are for Investigational Purposes Only by the assay's molder sweep. The performance characteristics of this product have not been established. Results should not be used as a diagnostic procedure without confirmation of the diagnosis by another medically established diagnostic product or procedure. U923-BeQ [place] 4.5 [H ] ug/mL Reference Range: 0.0-1.9 Performed at: [address] [id number] President And Cmo: Marry Gaming MD, Phone: [phone] Performed at: [address] [id number] President And Cmo: Virgilio Knight PhD, Phone: [phone] Ova and Parasites 8623 OP OVA AND PARASITES EXAM, ROUTINE These results were obtained using wet preparation(s) and trichrome stained smear. This test does not include testing for Crytosporidium parvum, Cyclospora, or Microsporidia. One negative specimen does not rule out the possibility of a parasitic infection. TESTING PERFORMED AT [facility]. ORIGINAL REPORT ON FILE IN LAB CONTAINS ADDITIONAL TEST SITE INFORMATION. Ova/Parasite Exam NO OVA, CYSTS, OR PARASITES FOUND. Normal [facility] Comment on above: Performed By: #### L 100.0100, L3410.9992, L500.4100, L3410.2400, L500.4050 #### [facility] [address] [place], [address] L3410.9992on 02-17-2025 [facility]. COMMENT Normal . [facility] Comment on above: Order Comment: [id number] 3SER RMT GRAIN PROF Result Comment: Test Ordered: [id number] Allergen Profile, Food-Grain Class Description Comment Reference Range: . Levels of Specific IgE Class Description of Class ----- < 0.10 0 Negative 0.10 - 0.31 0/I Equivocal/Low 0.32 - 0.55 I Low 0.56 - 1.40 II Moderate 1.41 - 3.90 III High 3.91 - 19.00 IV Very High 19.01 - 100.00 V Very High >100.00 Very High F244-UzL Wheat 0.11 [A ] kU/L Reference Range: Class 0/I I579-WdI [place] <0.10 kU/L BN Reference Range: Class 0 U877-JwS Barley <0.10 kU/L Reference Range: Class 0 E995-SnF Oat <0.10 kU/L BN Reference Range: Class 0 E800-GbA Lexa 0.34 [A ] kU/L BN Reference Range: Class I J866-IfC Rice <0.10 kU/L BN Reference Range: Class 0 Performed at: [facility] [address] [id number] President And Cmo: Marry Gaming MD, Phone: [phone] Performed at: [facility] [address] [id number] President And Cmo: Virgilio Knight PhD, Phone: [phone] Performed By: #### L 100.0100, L3410.9992, L500.4100, L3410.2400, L500.4050 #### [facility] [place], [address] Celiac Disease Profileon ENDOMYSIAL IGA Negative Normal Negative [facility] Comment on above: Performed By: #### L 100.0100, L3410.9992, L500.4100, L3410.2400, L500.4050 #### [facility] [address] [place], [place], [id number] IMMUNOGLOB A QN 378 mg/dL Normal 90-386 [facility] Comment on above: Result Comment: Perf ormed at: CB - [address] [id number] President And Cmo: Virgilio Knight PhD, Phone: [phone] Performed By: #### L 100.0100, L3410.9992, L500.4100, L3410.2400, L500.4050 #### [facility] [address] [place], [place], [id number] tTG IGA 2 U/mL Normal 0-3 [facility] Comment on above: Result Comment: Nega tive 0 - 3 Weak Positive 4 - 10 Positive >10 Tissue Transglutaminase (tTG) has been identified as the endomysial antigen. Studies have demonstr- ated that endomysial IgA antibodies have over 99% specificity for gluten sensitive enteropathy. Performed By: #### L 100.0100, L3410.9992, L500.4100, L3410.2400, L500.4050 #### [facility] [address] [place], [place], [address] L3410.9992on 02-16-20[facility] Normal . [facility] Comment on above: Order Comment: [id number] PEANUT PROF SER RMT Result Comment: Test Ordered: [id number] F743-RsB Peanut Test(s) [id number] Peanut was developed and its performance characteristics determined by [employer]. It has not been cleared or approved by the Food and Drug Administration. The FDA has determined that such clearance or approval is not necessary. Results of this test are for investigational purposes only. The result should not be used as a diagnostic procedure without confirmation of the diagnosis by another medically established diagnostic product or procedure. R360-ZvM Peanut 9.1 [H ] ug/mL Reference Range: 0.0-1.9 Performed at: - [address] [id number] President And Cmo: Marry Gaming MD, Phone: [phone] Performed at: [address] [id number] President And Cmo: Virgilio Knight PhD, Phone: [phone] Performed By: #### L 3410.9992 #### [facility] [address] [place], [address] Order Comment: [id number] 1WHEAT PROF SER RMT Result Comment: Test Ordered: [id number] F435-DdE Wheat Test(s) [id number] Wheat was developed and its performance characteristics determined by [employer]. It has not been cleared or approved by the Food and Drug Administration. The FDA has determined that such clearance or approval is not necessary. Results of this test are for investigational purposes only. The result should not be used as a diagnostic procedure without confirmation of the diagnosis by another medically established diagnostic product or procedure. U574-CtF Wheat 25.9 [H ] ug/mL Reference Range: 0.0-1.9 Performed at: [facility] [address] [place], [place] [id number] President And Cmo: Marry Gaming MD, Phone: [phone] Performed at: [address] [id number] President And Cmo: Virgilio Knight PhD, Phone: [phone] Performed By: #### L 100.0100, L3410.9992, L500.4100, L3410.2400, L500.4050 #### [facility] [address] [place], [address] Order Comment: [id number] 6SER RMT ALMOND PROF Result Comment: Test Ordered: [id number] B002-BhZ Meeker Test(s) [id number] Meeker was developed and its performance characteristics determined by [employer]. It has not been cleared or approved by the Food and Drug Administration. The FDA has determined that such clearance or approval is not necessary. Results of this test are for investigational purposes only. The result should not be used as a diagnostic procedure without confirmation of the diagnosis by another medically established diagnostic product or procedure. L180-RjP [place]eker 5.9 [H ] ug/mL BN Reference Range: 0.0-1.9 Performed at: [address] [id number] President And Cmo: Marry Gaming MD, Phone: [phone] Performed at: [address] [id number] President And Cmo: Virgilio Knight PhD, Phone: [phone] Order Comment: [id number] 1S PROF SER RMT Result Comment: Test Ordered: [id number] M835-LhP Soybean Test(s) [id number]-[id number] Soybean was developed and its performance characteristics determined by [employer]. It has not been cleared or approved by the Food and Drug Administration. The FDA has determined that such clearance or approval is not necessary. Results of this test are for investigational purposes only. The result should not be used as a diagnostic procedure without confirmation of the diagnosis by another medically established diagnostic product or procedure. V837-RhI Soybean 7.2 [H ] ug/mL BN Reference Range: 0.0-1.9 Performed at: [address] [id number] President And Cmo: Marry Gaming MD, Phone: [phone] Performed at: [address] [id number] President And Cmo: Virgilio Knight PhD, Phone: [phone] Order Comment: [id number] [facility] Result Comment: Test Ordered: [id number] D721-XoX Lexa Test(s) [id number] Lexa was developed and its performance characteristics determined by [employer]. It has not been cleared or approved by the Food and Drug Administration. The FDA has determined that such clearance or approval is not necessary. Results of this test are for investigational purposes only. The result should not be used as a diagnostic procedure without confirmation of the diagnosis by another medically established diagnostic product or procedure. T547-TfG Lexa 8.9 [H ] ug/mL BN Reference Range: 0.0-1.9 Performed at: [address] [id number] President And Cmo: Marry Gaming MD, Phone: [phone] Performed at: - [facility], [place], [place] [id number] President And Cmo: Virgilio Knight PhD, Phone: [phone] CDIFF (PCR)on 02-14-2025 CDIFF Pending 027 027 NAP1-B1 Presumptive Negative *for epidemiolologic???use C. Diff PCR Negative- No toxigenic C. Diff Detected Normal [facility] Comment on above: Performed By: #### L 100.0100, L3410.9992, L500.4100, L3410.2400, L500.4050 #### [facility] [address] [facility] [place], [address] Clostridium difficile detect ion by polymerase chain reactionOrdered By: Eve Dobbins on 02-14-2025 C. difficile DNA DARIN+probe Ql (Unsp spec) [facility] ENTERIC PATHOGEN PANEL STOOL on 02-14-2025 EP PANEL Normal Reference Ran ge = Not Detected Nucleic acid amplification test method Not detected for Campylobacter group, Salmonella species, Shigella species, Vibrio Group, Yersinia enterocolitica, EHEC (Shiga Toxin 1, Shiga Toxin 2), Norovirus Gl/Gll, and Rotavirus A. Other common stool pathogens are not detected on this panel include: Aeromonas/Plesiomonas or parasites. Order testing for these organisms separately if suspected. This is an amplified DNA test which makes it both specific and sensitive. CAMPYLOBACTER Not Detected Norovirus Not Detected Rotavirus Not Detected Salmonella Not Detected Shiga Toxin Not Detected Shigella sp. Not Detected VIBRIO Not Detected Yersinia Not Detected Normal [facility] Comment on above: Performed By: #### L 100.0100, L3410.9992, L500.4100, L3410.2400, L500.4050 #### [facility] [address] [facility] [place], [address] Stool Lactoferrin/WBCon 05-0 WBCST Normal Reference Ran ge = Negative Fecal WBC Lactoferrin A Positive: Fecal WBC Lactoferrin present A Normal [facility] Comment on above: Performed By: #### L 100.0100, L3410.9992, L500.4100, L3410.2400, L500.4050 #### [facility] [address] [place], [address] Stool lactoferrin detection by immunoassayOrdered By: Eve Dobbins on 02-14-2025 Lactoferrin IA Ql (Stl) [facility] Absolute lymphocyte countOrd ered By: Eve Dobbins on 02-13-2025 Lymphocytes Auto (Unsp spec) [#/Vol] 2.49 10*3/uL 0.83-4.51 [facility] Absolute neutrophil countOrd ered By: [facility] on 02-13-2025 Neutrophils (Bld) [#/Vol] 6.3 10*3/uL 2.0-7.7 [facility] Anion gap in Serum or Plasma Ordered By: Evemeng Dobbins on 02-13-2025 Anion gap [Moles/Vol] 13 mmol/L 5- [facility] Automated lymphocyte count a s percentage of total leukocytesOrdered By: Eve Dobbins on 02-13-2025 Lymphocytes/100 WBC Auto (Unsp spec) 21.3 % 19-41 [facility] BUN/creatinine ratioOrdered By: [facility] on 02-13-2025 Urea nitrogen/Creatinine [Mass ratio] 12.2 mg/mg 10-20 [facility] Basophil percentageOrdered B y: Eve Shilpi on 02-13-2025 Basophils/100 WBC (Bld) 0.9 % 0-1 [facility] Bilirubin, totalOrdered By: Eve Dobbins on 02-13-2025 Bilirubin [Mass/Vol] 0.34 mg/dL 0.00-1.30 [facility] CBC W/Diff, Automatedon PLT MORPH LARGE Normal [facility] Comment on above: Performed By: #### L 100.0100, L3410.9992, L500.4100, L3410.2400, L500.4050 #### [facility] [address] [place], [address] Calculated very low density lipoprotein (VLDL) cholesterol measurementOrdered By: Eve Dobbins on 02-13-2025 Calculated very low density lipoprotein (VLDL) cholesterol measurement 13 mg/dL 5-40 [facility] Carbon dioxide, total [Moles /volume] in Central venous bloodOrdered By: Eve Dobbins on 02-13-2025 CO2 [Moles/Vol] 25.2 mmol/L 21.0-32.0 [facility] Chloride assayOrdered By: Ra satinder Dobbins on 02-13-2025 Chloride [Moles/Vol] 98 mmol/L 98-108 [facility] Comprehensive Metabolic Prof ilon 02-13-2025 Albumin [Mass/Vol] 4.2 g/dL Normal 3.5-5.0 [facility] Comment on above: Performed By: #### L 100.0100, L3410.9992, L500.4100, L3410.2400, L500.4050 #### [facility] [address] [place], [address] Albumin/Globulin [Mass ratio] 1.1 {ratio} Normal 0.9-2.4 [facility] Comment on above: Performed By: #### L 100.0100, L3410.9992, L500.4100, L3410.2400, L500.4050 #### [facility] [address] [place], [address] ALK PHOS 98 U/L Normal 40-129 [facility] Comment on above: Performed By: #### L 100.0100, L3410.9992, L500.4100, L3410.2400, L500.4050 #### [facility] [address] [place], [address] ALT [Catalytic activity/Vol] 10 U/L Normal <=46 [facility] Comment on above: Performed By: #### L 100.0100, L3410.9992, L500.4100, L3410.2400, L500.4050 #### [facility] [address] [place], [address] AST [Catalytic activity/Vol] 13 U/L Normal <=37 [facility] Comment on above: Performed By: #### L 100.0100, L3410.9992, L500.4100, L3410.2400, L500.4050 #### [facility] [address] [place], [address] Bilirubin [Mass/Vol] 0.34 mg/dL Normal 0.00-1.30 [facility] Comment on above: Performed By: #### L 100.0100, L3410.9992, L500.4100, L3410.2400, L500.4050 #### [facility] [address] [place], [address] BUN/CRE 12.2 RATIO Normal 10-20 [facility] Comment on above: Performed By: #### L 100.0100, L3410.9992, L500.4100, L3410.2400, L500.4050 #### [facility] [address] [place], [address] Calcium [Mass/Vol] 9.8 mg/dL Normal 7.6-11.0 [facility] Comment on above: Performed By: #### L 100.0100, L3410.9992, L500.4100, L3410.2400, L500.4050 #### [facility] [address] [place], [address] Chloride [Moles/Vol] 98 mmol/L Normal 98-108 [facility] Comment on above: Performed By: #### L 100.0100, L3410.9992, L500.4100, L3410.2400, L500.4050 #### [facility] [address] [place], [address] CO2 [Moles/Vol] 25.2 mmol/L Normal 21.0-32.0 [facility] Comment on above: Performed By: #### L 100.0100, L3410.9992, L500.4100, L3410.2400, L500.4050 #### [facility] [address] [place], [address] Creatinine [Mass/Vol] 0.88 mg/dL Normal 0.70-1.20 [facility] Comment on above: Performed By: #### L 100.0100, L3410.9992, L500.4100, L3410.2400, L500.4050 #### [facility] [address] [place], [address] GAP 13 Normal 5-15 [facility] Comment on above: Performed By: #### L 100.0100, L3410.9992, L500.4100, L3410.2400, L500.4050 #### [facility] [address] [place], [address] GFR/1.73 sq M.predicted among non-blacks MDRD (S/P/Bld) [Vol rate/Area] 122 mL/min/{1.73_m2} Normal >60 [facility] Comment on above: Result Comment: mL/m in/1.73m2 CKD-EPI Creatinine Equation (2020) Performed By: #### L 100.0100, L3410.9992, L500.4100, L3410.2400, L500.4050 #### [facility] [address] [place], [address] Globulin (S) [Mass/Vol] 3.8 g/dL Normal 2.2-4.2 [facility] Comment on above: Performed By: #### L 100.0100, L3410.9992, L500.4100, L3410.2400, L500.4050 #### [facility] [address] [place], [address] Glucose [Mass/Vol] 81 mg/dL Normal 70-99 [facility] Comment on above: Performed By: #### L 100.0100, L3410.9992, L500.4100, L3410.2400, L500.4050 #### [facility] [address] [place], [address] Potassium [Moles/Vol] 3.7 mmol/L Normal 3.3-5.1 [facility] Comment on above: Performed By: #### L 100.0100, L3410.9992, L500.4100, L3410.2400, L500.4050 #### [facility] [address] [place], [address] Sodium [Moles/Vol] 136 mmol/L Normal 133-145 [facility] Comment on above: Performed By: #### L 100.0100, L3410.9992, L500.4100, L3410.2400, L500.4050 #### [facility] [address] [place], [address] T PROT 8.0 g/dL Normal 5.9-8.4 [facility] Comment on above: Performed By: #### L 100.0100, L3410.9992, L500.4100, L3410.2400, L500.4050 #### [facility] [address] [place], [address] Urea nitrogen [Mass/Vol] 11 mg/dL Normal 4-19 [facility] Comment on above: Performed By: #### L 100.0100, L3410.9992, L500.4100, L3410.2400, L500.4050 #### [facility] [address] [place], [address] Eosinophil percentageOrdered By: Eve Dobbins on 02-13-2025 Eosinophils/100 WBC (Bld) 8.7 % High 0-5 [facility] Erythrocyte distribution wid th ratioOrdered By: Eve Dobbins on 02-13-2025 Erythrocyte distribution width (RBC) [Ratio] 12.9 % 11.6-14.6 [facility] Erythrocyte distribution wid th standard deviationOrdered By: Eve Dobbins on 02-13-2025 Erythrocyte distribution width (RBC) [Ratio] 39.9 fl 35.1-43.9 [facility] Glomerular filtration rate ( GFR) estimation/1.73 sq m using serum, plasma, or whole bOrdered By: Eve Dobbins on 02-13-2025 GFR/1.73 sq M.predicted among non-blacks MDRD (S/P/Bld) [Vol rate/Area] 122 mL/min/{1.73_m2} >60 [facility] Comment on above: mL/min/1.73m2 CKD-EP I Creatinine Equation (2020) Hematocrit Auto (Bld) [Volum e fraction]Ordered By: Eve Dobbins on 02-13-2025 Hematocrit (Bld) [Volume fraction] 40.1 % 40-54 [facility] Hemoglobin measurementOrdere d By: Eve Dobbins on 02-13-2025 Hemoglobin (Bld) [Mass/Vol] 13.5 g/dL 13.0-16.5 [facility] Immature granulocytes/100 WB C Auto (Bld)Ordered By: Eve Dobbins on 02-13-2025 Immature granulocytes/100 WBC (Bld) 0.800 % 0.0-0.9 [facility] Comment on above: IG% - Immature Granu locytes (promyelocytes, myelocytes and metamyelocytes) > 1% indicates that a LEFT SHIFT is Present. LDL calc ser/plasOrdered By: Eve Dobbins on 02-13-2025 Cholesterol in LDL [Mass/Vol] 105 mg/dL [facility] Comment on above: Qynebsfucz=054-658 m g/dL & Higher Mcyn=025 mg/dL or greater Laboratory - Chemistry and C hemistry - challengeOrdered By: Eve Dobbins on 02-13-2025 AST [Catalytic activity/Vol] 13 U/L <38 [facility] Lipid Profileon 02-13-2025 CHOL:HDL 4.12 Normal [facility] Comment on above: Performed By: #### L 100.0100, L3410.9992, L500.4100, L3410.2400, L500.4050 #### [facility] [address] [place], [address] Cholesterol [Mass/Vol] 156 mg/dL Normal <=200 [facility] Comment on above: Result Comment: Chol esterol level, Desirable <200 mg/dL Borderline high cholesterol 200-239 mg/dL High cholesterol >=240 mg/dL Recommendations of the NCEP Adult Treatment Panel for the following risk-cutoff thresholds for the [place] population. Performed By: #### L 100.0100, L3410.9992, L500.4100, L3410.2400, L500.4050 #### [facility] [address] [place], [address] Cholesterol in HDL [Mass/Vol] 38 mg/dL Low [facility] Comment on above: Result Comment: Meghann onal Cholesterol Education Program (NCEP) guidelines: <40 mg/dL: Low HDL-cholesterol (major risk factor for CHD) >= 60 mg/dL: High HDL-cholesterol (negative risk factor for CHD) HDL-cholesterol is affected by a number of factors, e.g. smoking, exercise, hormones, sex and age. Performed By: #### L 100.0100, L3410.9992, L500.4100, L3410.2400, L500.4050 #### [facility] [address] [place], [address] Cholesterol in LDL [Mass/Vol] 105 mg/dL Normal [facility] Comment on above: Result Comment: Bord ajvfgq=434-247 mg/dL Higher Bajy=988 mg/dL or greater Performed By: #### L 100.0100, L3410.9992, L500.4100, L3410.2400, L500.4050 #### [facility] [address] [place], [address] Cholesterol in VLDL [Mass/Vol] 13 mg/dL Normal 5-40 [facility] Comment on above: Performed By: #### L 100.0100, L3410.9992, L500.4100, L3410.2400, L500.4050 #### [facility] [address] [place], [place], [address] Triglyceride [Mass/Vol] 65 mg/dL Normal [facility] Comment on above: Result Comment: The drugs N-Acetylcysteine and Metamizole may falsely depress this assay. Normal range: <150 mg/dL Borderline High: 150-199 mg/dL High: 200-499 mg/dL Very High: >500 mg/dL Performed By: #### L 100.0100, L3410.9992, L500.4100, L3410.2400, L500.4050 #### [facility] [address] [place], [place], [address] MCV (mean corpuscular volume ) determinationOrdered By: Eve Dobbins on 02-13-2025 MCV (RBC) [Entitic vol] 84.4 fL 80-94 [facility] Mean corpuscular hemoglobin (MCH) determinationOrdered By: Eve Dobbins on 02-13-2025 MCH (RBC) [Entitic mass] 28.4 pg 27.0-32.0 [facility] Mean corpuscular hemoglobin concentration (MCHC) determinationOrdered By: Eve Dobbins on 02-13-2025 MCHC (RBC) [Mass/Vol] 33.7 g/dL 32-36 [facility] Mean platelet volume determi nationOrdered By: Eve Dobbins on 02-13-2025 Platelet mean volume (Bld) [Entitic vol] 9.7 fL 6.2-12.0 [facility] Monocyte percentageOrdered B y: Eve Dobbins on 02-13-2025 Monocytes/100 WBC (Bld) 14.0 % High 0-10 [facility] Neutrophil percentageOrdered By: Eve Dobbins on 02-13-2025 Neutrophils/100 WBC (Bld) 54.3 % 47-70 [facility] Nucleated red blood cell per centageOrdered By: Eve Dobbins on 02-13-2025 Nucleated RBC/100 WBC (Bld) [Ratio] 0 % 0-5 [facility] Platelet countOrdered By: Ra satidner Dobbins on 02-13-2025 Platelets (Bld) [#/Vol] 374 10*3/uL 150-450 [facility] Platelet morphologyOrdered B y: Eve Dobbins on 02-13-2025 Platelet morphology finding Nom (Bld) LARGE [facility] Potassium measurement (mass/ volume)Ordered By: Eve Dobbins on 02-13-2025 Potassium (Unsp spec) [Mass/Vol] 3.7 mmol/L 3.3-5.1 [facility] RBC Auto (Bld) [#/Vol]Ordere d By: Eve Dobbins on 02-13-2025 RBC (Bld) [#/Vol] 4.75 10*6/uL 4.6-6.2 [facility] Screening total cholesterol/ high density lipoprotein (HDL) cholesterol ratioOrdered By: Eve Dobbins on 02-13-2025 Cholesterol.total/Magdalena sterol in HDL [Mass ratio] 4.12 {ratio} [facility] Serum creatinine measurement (mass/volume)Ordered By: Eve Dobbins on 02-13-2025 Creatinine [Mass/Vol] 0.88 mg/dL 0.70-1.20 [facility] Serum globulin measurementOr dered By: Eve Dobbins on 02-13-2025 Globulin (S) [Mass/Vol] 3.8 g/dL 2.2-4.2 [facility] Serum glucose measurement (m ass/volume)Ordered By: Eve Dobbins on 02-13-2025 Glucose [Mass/Vol] 81 mg/dL 70-99 [facility] Serum or plasma IgA measurem ent (mass/volume)Ordered By: Eve Dobbins on 02-13-2025 IgA [Mass/Vol] 378 mg/dL 90-386 [facility] Comment on above: Performed at: [address] [id number] Director: Virgilio Knight PhD, Phone: [phone] Serum or plasma alanine madden otransferase (ALT) measurementOrdered By: Evemeng Dobbins on 02-13-2025 ALT [Catalytic activity/Vol] 10 U/L <47 [facility] Serum or plasma albumin adeola urement (mass/volume)Ordered By: Evemeng Dobbins on 02-13-2025 Albumin [Mass/Vol] 4.2 g/dL 3.5-5.0 [facility] Serum or plasma albumin/glob ulin mass ratioOrdered By: [facility] 02-13-2025 Albumin/Globulin [Mass ratio] 1.1 {ratio} 0.9-2.4 [facility] Serum or plasma alkaline jaret sphatase measurementOrdered By: [facility] 02-13-2025 ALP [Catalytic activity/Vol] 98 U/L 40-129 [facility] Serum or plasma calcium adeola urement (mass/volume)Ordered By: [facility] 02-13-2025 Calcium [Mass/Vol] 9.8 mg/dL 7.6-11.0 [facility] Serum or plasma cholesterol in HDL measurement (mass/volume)Ordered By: Evemeng Dobbins on 02-13-2025 Cholesterol in HDL [Mass/Vol] 38 mg/dL Low >40 [facility] Comment on above: National Cholesterol Education Program (NCEP) guidelines:<40 mg/dL: Low HDL-cholesterol (major risk factor for CHD)>= 60 mg/dL: High HDL-cholesterol (negative risk factor for CHD)HDL-cholesterol is affected by a number of factors, e.g. smoking, exercise, hormones, sex and age. Serum or plasma cholesterol measurement (mass/volume)Ordered By: Evemeng Dobbins on 02-13-2025 Cholesterol [Mass/Vol] 156 mg/dL <201 [facility] Comment on above: Cholesterol level, D esirable <200 mg/dLBorderline high cholesterol 200-239 mg/dLHigh cholesterol >=240 mg/dLRecommendations of the NCEP Adult Treatment Panel for the following risk-cutoff thresholds for the [place] population. Serum or plasma urea nitroge n measurement (mass/volume)Ordered By: [facility] on 02-13-2025 Urea nitrogen [Mass/Vol] 11 mg/dL 4-19 [facility] Serum tissue transglutaminas e (tTG) IgA antibody assay (units/volume)Ordered By: Eve Dobbins on 02-13-2025 tTG IgA Qn (S) 2 U/mL 0-3 [facility] Comment on above: Negative 0 - 3 Weak Positive 4 - 10 Positive >10 Tissue Transglutaminase (tTG) has been identified as the endomysial antigen. Studies have demonstr- ated that endomysial IgA antibodies have over 99% specificity for gluten sensitive enteropathy. Sodium levelOrdered By: Jenniebrad Dobbins on 02-13-2025 Sodium [Moles/Vol] 136 mmol/L 133-145 [facility] Total proteinOrdered By: Willy Dobbins on 02-13-2025 Protein [Mass/Vol] 8.0 g/dL 5.9-8.4 [facility] Triglycerides measurementOrd ered By: Eve Dobbins on 02-13-2025 Triglyceride [Mass/Vol] 65 mg/dL <199 [facility] Comment on above: The drugs N-Acetylcy steine and Metamizole may falsely depress this assay. Normal range: <150 mg/dLBorderline High: 150-199 mg/dLHigh: 200-499 mg/dLVery High: >500 mg/dL White blood cell (WBC) count Ordered By: Eve Dobbins on 02-13-2025 WBC (Bld) [#/Vol] 11.7 10*3/uL High 4.4-11.0 [facility] Abdomen/Pelvis without Conto n 01-19-2025 Abdomen/Pelvis without Cont [facility] Imaging Services [address] [place] [id number] Abdomen/Pelvis without Cont MR#: [id number] Acct: [id number] Name: WILBER DOBBINS Rep #: [id number] : 2000 M 24 From: Jermaine engel MD PCP: GIOVANI Mendieta Status: [facility] ER Study: Abdomen/Pelvis without Cont Date of Exam: 01/10 Exam# [id number] Ordering Dr: Cal Powers DO PROCEDURE: ABDOMEN/PELVIS WITHOUT CONT 01/19/2025 REASON FOR EXAM: KIDNEY STONE TECHNIQUE: Abdomen and pelvis CT without intravenous contrast. Noncontrast technique limits evaluation of the abdominal and pelvic viscera. Coronal and Sagittal reconstruction series were provided. One or more dose reduction techniques were used (e.g., Automated exposure control, adjustment of the mA and/or kV according to patient size, use of iterative reconstruction technique). PATIENT PREPARATION: Per protocol ORAL CONTRAST TYPE: None. AMOUNT: mL COMPARISON: None FINDINGS: Lung bases: Unremarkable Liver: Normal size. No obvious mass. Gallbladder: No cholelithiasis or wall thickening. Spleen: Normal size. Pancreas: Normal size. No surrounding inflammation. Adrenals: Unremarkable Kidneys: No urolithiasis. No hydronephrosis. Bladder: Urinary bladder is unremarkable. Reproductive Organs: No pelvic mass. Bowel: Stomach is unremarkable. No bowel dilation or wall thickening. Moderate colonic stool. Appendix: Normal appendix. Lymph nodes: No suspicious adenopathy. Vasculature: The abdominal aorta and IVC contours are normal. Noncontrast technique limits evaluation. Peritoneum / Retroperitoneum: No ascites. No pneumoperitoneum. Bones: No suspicious osseous lesions. Soft tissues are unremarkable. CT/Abdomen/Pelvis without Cont IMPRESSION: *No acute findings in the abdomen and pelvis. *No evidence of nephrolithiasis or hydronephrosis. *Moderate colonic stool. Reading Location: [facility] CC: GIOVANI Archer; Dr. Cal Powers DO Master Technician: Signed Normal [facility] Absolute lymphocyte countOrd ered By: Cal Powers on 01-19-2025 Lymphocytes Auto (Unsp spec) [#/Vol] 2.45 10*3/uL 0.83-4.51 [facility] Absolute neutrophil countOrd ered By: Cal Powers on 01-19-2025 Neutrophils (Bld) [#/Vol] 2.5 10*3/uL 2.0-7.7 [facility] Anion gap in Serum or Plasma Ordered By: Cal Powers on 01-19-2025 Anion gap [Moles/Vol] 10 mmol/L 5-15 [facility] Automated lymphocyte count a s percentage of total leukocytesOrdered By: Cal Powers on 01-19-2025 Lymphocytes/100 WBC Auto (Unsp spec) 35.4 % 19-41 [facility] BUN/creatinine ratioOrdered By: Cal Powers on 01-19-2025 Urea nitrogen/Creatinine [Mass ratio] 15.6 mg/mg - [facility] Basic Metabolic Profile (BMP )on 01-19-2025 BUN/CRE 15.6 RATIO Normal 07-31 [facility] Comment on above: Performed By: #### L 100.0100, L3410.9992, L500.4100, L3410.2400, L500.4050 #### [facility] [address] [place], [address] Calcium [Mass/Vol] 9.2 mg/dL Normal 7.6-11.0 [facility] Comment on above: Performed By: #### L 100.0100, L3410.9992, L500.4100, L3410.2400, L500.4050 #### [facility] [address] [place], [address] Chloride [Moles/Vol] 100 mmol/L Normal 98-108 [facility] Comment on above: Performed By: #### L 100.0100, L3410.9992, L500.4100, L3410.2400, L500.4050 #### [facility] [address] [place], [address] CO2 [Moles/Vol] 27.4 mmol/L Normal 21.0-32.0 [facility] Comment on above: Performed By: #### L 100.0100, L3410.9992, L500.4100, L3410.2400, L500.4050 #### [facility] [address] [place], [address] Creatinine [Mass/Vol] 0.92 mg/dL Normal 0.70-1.20 [facility] Comment on above: Performed By: #### L 100.0100, L3410.9992, L500.4100, L3410.2400, L500.4050 #### [facility] [address] [place], [address] ECRCL 103.75 ml/min Normal 50-250 [facility] Comment on above: Performed By: #### L 100.0100, L3410.9992, L500.4100, L3410.2400, L500.4050 #### [facility] [address] [place], [address] GAP 10 Normal 5-15 [facility] Comment on above: Performed By: #### L 100.0100, L3410.9992, L500.4100, L3410.2400, L500.4050 #### [facility] [address] [place], [address] GFR/1.73 sq M.predicted among non-blacks MDRD (S/P/Bld) [Vol rate/Area] 118 mL/min/{1.73_m2} Normal >60 [facility] Comment on above: Result Comment: mL/m in/1.73m2 CKD-EPI Creatinine Equation (2020) Performed By: #### L 100.0100, L3410.9992, L500.4100, L3410.2400, L500.4050 #### [facility] [address] [place], [address] Glucose [Mass/Vol] 94 mg/dL Normal 70-99 [facility] Comment on above: Performed By: #### L 100.0100, L3410.9992, L500.4100, L3410.2400, L500.4050 #### [facility] [address] [place], [address] Potassium [Moles/Vol] 3.9 mmol/L Normal 3.3-5.1 [facility] Comment on above: Performed By: #### L 100.0100, L3410.9992, L500.4100, L3410.2400, L500.4050 #### [facility] [address] [place], [address] Sodium [Moles/Vol] 137 mmol/L Normal 133-145 [facility] Comment on above: Performed By: #### L 100.0100, L3410.9992, L500.4100, L3410.2400, L500.4050 #### [facility] [address] [place], [address] Urea nitrogen [Mass/Vol] 14 mg/dL Normal 4-19 [facility] Comment on above: Performed By: #### L 100.0100, L3410.9992, L500.4100, L3410.2400, L500.4050 #### [facility] [address] [place], [address] Basophil percentageOrdered B y: Cal Powers on 01-19-2025 Basophils/100 WBC (Bld) 1.0 % 0-1 [facility] Bilirubin Test strip Ql (U)O rdered By: Cal Powers on 01-19-2025 Bilirubin Ql (U) Negative Negative [facility] Blood manual differential co mment interpretation (narrative result)Ordered By: Cal Powers on 01-19-2025 Manual differential comment Martin (Bld) [Interp] SCANNED [facility] Comment on above: RARE BANDS NOTED CBC W/Diff, Automatedon 04 SMEAR COMMENT SCANNED Normal [facility] Comment on above: Result Comment: RARE BANDS NOTED Performed By: #### L 100.0100, L3410.9992, L500.4100, L3410.2400, L500.4050 #### [facility] [address] [place], [address] Carbon dioxide, total [Moles /volume] in Central venous bloodOrdered By: Cal Powers on 01-19-2025 CO2 [Moles/Vol] 27.4 mmol/L 21.0-32.0 [facility] Chloride assayOrdered By: Tiago Powers on 01-19-2025 Chloride [Moles/Vol] 100 mmol/L 98-108 [facility] Emergency Department Summary on 01-19-2025 Emergency Department Summary [facility] Medical Records Department [address] [place] [address] Emergency Department Summary 01/19/25 MR#: [id number] Acct: [id number] Name: WILBER DOBBINS Rep #: [id number] : 2000 24 From: Cal Grayson PCP: BERNADETTE MendietaC Status:DEP ER Location: ED HPI History of Present Illness Chief Complaint: Back Informant: patient and spouse/S.O. Narrative Narrative: Presents ED concern for kidney stone. 2 days ago he states had 1 bout of nausea vomiting x 1 shortly afterwards felt pain left flank. Does not radiate. No troubles urinating. States had a temp of 100.6 orally at that time. No cough no dysuria no myalgias. Use ibuprofen yesterday. Pain has been constant. Sometimes worse with movement. Denies history of kidney stones. Denies history of gastric ulcers or kidney injury. Prior similar symptoms: No PFSH PFSH Medical History no medical history Allergy/AdvReac Type Severity Reaction Status Date / Time No Known Allergies Allergy Verified 01/19/25 16:16 Family History no significant family his Surgical History no surgical history Social History household members: spouse housing: house Smoking Status: Never smoker [facility] ED Constitutional Constitutional ED: Reports fever(s); Denies chills or sweats ENT ENT ED: Denies sore throat Cardiovascular Cardiovascular: Denies chest pain, leg edema, palpitations or racing heartbeat Respiratory/Chest Respiratory/Chest: Denies cough, dyspnea or dyspnea on exertion Gastrointestinal Gastrointestinal: Denies abdominal pain, diarrhea, nausea or vomiting Genitourinary Genitourinary ED: Denies dysuria, hematuria or urinary frequency Musculoskeletal Musculoskeletal: Reports back pain; Denies extremity pain or neck pain Integumentary Denies rash or wounds Neurologic Neurologic: Denies headache(s), paresthesias or weakness EXAM Physical Exam Const Vital Signs: 01/19/25 16:16 01/19/25 18:15 01/19/25 18:53 Temperature 98 F 97.9 F Temperature Source Oral Pulse Rate 61 75 75 Respiratory Rate 18 18 18 Blood Pressure 130/72 H 107/82 H 107/82 H Blood Pressure Mean 91 90 90 Pulse Ox 100 98 98 Oxygen Delivery Method Room Air Positive well nourished and well developed General Appearance ED: well developed and NAD HEENT Reports moist mucous membranes normocephalic and atraumatic Eyes General Eye ED: Yes normal appearance of both eyes Neck full ROM Chest Wall Chest: Negative for tenderness Resp normal respiratory effort and normal air movement Effort and Inspection: symmetric chest movement; Negative for respiratory distress Cardio regular rate, regular rhythm and no murmurs Peripheral Pulses: pulses 2+ throughout GI normal to inspection, nondistended, normoactive bowel sounds and non-tender Palpation: Negative for guarding or rebound tenderness present Back/Spine Back/Spine Narrative: Tender left flank no ecchymosis no rash. Extremity normal to inspection General Extremety ED: Negative for edema or tenderness General Extremity: Negative for edema Neuro oriented x3 and no sensory deficits noted Sensorium / Orientation: awake and alert Skin no rashes or lesions noted and no wounds MDM MDM MDM Narrative Medical decision making narrative: Interventions / MDM: Differential diagnosis: Musculoskeletal pain. Flank pain. Diagnosis considered but do not suspect: Kidney stone however CT negative. Pyelonephritis however CT and urine negative. My EKG interpretation: N/A Imaging independently reviewed and interpreted by myself: CT abdomen pelvis: No acute process moderate colonic stool burden. No kidney stones noted. Also read by radiology. External documents reviewed: N/A Test considered but not ordered:N/A ED course: Nontoxic vital stable. Concern for kidney stones. Renal stone protocol initiated labs urine. IV Toradol. CT scan for further evaluation. Workup negative. CT negative. Reported colonic stool burden. He reports bowel movements every day. Discussed likely musculoskeletal, he will use Tylenol or Motrin as needed. Monitor symptoms. Outpatient follow-up. All questions were answered. Re-evaluation: stable Disposition discussed with patient/family/signifi cant other: Patient and significant other Case discussed with consulting clinician: N/A This note was generated with lucierna dictation software. It may contain incorrect words, spelling, and punctuation that were not noted in checking the note before signing. Lab Data Labs: Laboratory Results - last 24 hr 01/19/25 16:45 WBC 6.9 RBC 4.89 Hgb 14.2 Hct 41.9 MCV 85.7 MCH 29.0 MCHC 33.9 RDW Std Deviation 39.1 RDW Coeff of Ina 12.6 Plt (more content not included)... Normal [facility] Eosinophil percentageOrdered By: Cal Powers on 01-19-2025 Eosinophils/100 WBC (Bld) 7.7 % High 0-5 [facility] Epithelial cells.squamous LM Ql (Urine sed)Ordered By: Cal Powers on 01-19-2025 Epithelial cells.squamous LM.HPF (Urine sed) [#/Area] 0 /[HPF] 0-5 [facility] Erythrocyte distribution wid th (RBC) [Ratio]Ordered By: Cal Powers on 01-19-2025 Erythrocyte distribution width (RBC) [Entitic vol] 39.1 fL 35.1-43.9 [facility] Erythrocyte distribution wid th ratioOrdered By: Cal Powers on 01-19-2025 Erythrocyte distribution width (RBC) [Ratio] 12.6 % 11.6-14.6 [facility] Erythrocyte distribution wid th standard deviationOrdered By: Cal Powers on 01-19-2025 Erythrocyte distribution width (RBC) [Ratio] 39.1 fl 35.1-43.9 [facility] Estimation of creatinine shimon aranceOrdered By: Cal Powers on 01-19-2025 Estimated Creatinine Clearance Calc 103.75 ml/min 50-250 [facility] GFR/1.73 sq M.predicted anat g non-blacks MDRD (S/P/Bld) [Vol rate/Area]Ordered By: Cal Powers on 01-19-2025 Estimated GFR (MDRD) Non-Af Amer 118 >60 [facility] Comment on above: mL/min/1.73m2 CKD-EP I Creatinine Equation (2020) Glomerular filtration rate ( GFR) estimation/1.73 sq m using serum, plasma, or whole bOrdered By: Cal Powers on 01-19-2025 GFR/1.73 sq M.predicted among non-blacks MDRD (S/P/Bld) [Vol rate/Area] 118 mL/min/{1.73_m2} >60 [facility] Comment on above: mL/min/1.73m2 CKD-EP I Creatinine Equation (2020) Glucose Ql (U)Ordered By: Tiago pat Priya on 01-19-2025 Urine Glucose (UA) Normal mg/dl Normal [facility] Hematocrit Auto (Bld) [Volum e fraction]Ordered By: Cal Powers on 01-19-2025 Hematocrit (Bld) [Volume fraction] 41.9 % 40-54 [facility] Hemoglobin measurementOrdere d By: Cal Powers on 01-19-2025 Hemoglobin (Bld) [Mass/Vol] 14.2 g/dL 13.0-16.5 [facility] Immature granulocytes/100 WB C Auto (Bld)Ordered By: Cal Powers on 01-19-2025 Immature granulocytes/100 WBC (Bld) 0.300 % 0.0-0.9 [facility] Comment on above: IG% - Immature Granu locytes (promyelocytes, myelocytes and metamyelocytes) > 1% indicates that a LEFT SHIFT is Present. Ketones Test strip Ql (U)Ord ered By: Cal Powers on 01-19-2025 Ketones Ql (U) Negative Negative [facility] Lymphocytes Auto (Unsp spec) [#/Vol]Ordered By: Cal Powers on 01-19-2025 Lymphocytes (Bld) [#/Vol] 2.45 10*3/uL 0.83-4.51 [facility] Lymphocytes/100 WBC Auto (Un sp spec)Ordered By: Cal Powers on 01-19-2025 Lymphocytes/100 WBC (Bld) 35.4 % 19-41 [facility] MCV (mean corpuscular volume ) determinationOrdered By: Cal Powers on 01-19-2025 MCV (RBC) [Entitic vol] 85.7 fL 80-94 [facility] Manual differential comment Martin (Bld) [Interp]Ordered By: Cal Powers on 01-19-2025 Differential Comment SCANNED [facility] Comment on above: RARE BANDS NOTED Mean corpuscular hemoglobin (MCH) determinationOrdered By: Cal Powers on 01-19-2025 MCH (RBC) [Entitic mass] 29.0 pg 27.0-32.0 [facility] Mean corpuscular hemoglobin concentration (MCHC) determinationOrdered By: Cal Powers on 01-19-2025 MCHC (RBC) [Mass/Vol] 33.9 g/dL 32-36 [facility] Mean platelet volume determi nationOrdered By: Cal Powers on 01-19-2025 Platelet mean volume (Bld) [Entitic vol] 9.8 fL 6.2-12.0 [facility] Microscopic analysis of urin e for red blood cells (RBC)Ordered By: Cal Powers on 01-19-2025 Microscopic analysis of urine for red blood cells (RBC) 0 SEEN /hpf 0-5 [facility] Urine RBC 0 SEEN /hpf 0-5 [facility] Monocyte percentageOrdered B y: Cal Powers on 01-19-2025 Monocytes/100 WBC (Bld) 19.4 % High 0-10 [facility] Mucus LM Ql (Urine sed)Order ed By: Cal Powers on 01-19-2025 Mucus Ql (Urine sed) 0 SEEN /hpf [facility] Neutrophil percentageOrdered By: Cal Powers on 01-19-2025 Neutrophils/100 WBC (Bld) 36.2 % Low 47-70 [facility] Nitrite Test strip Ql (U)Ord ered By: Cal Powers on 01-19-2025 Nitrite Ql (U) Negative Negative [facility] Nucleated red blood cell per centageOrdered By: Cal Powers on 01-19-2025 Nucleated RBC/100 WBC (Bld) [Ratio] 0 % 0-5 [facility] Platelet countOrdered By: Tiago Powers on 01-19-2025 Platelets (Bld) [#/Vol] 314 10*3/uL 150-450 [facility] Potassium (Unsp spec) [Mass/ Vol]Ordered By: Cal Powers on 01-19-2025 Potassium [Moles/Vol] 3.9 mmol/L 3.3-5.1 [facility] Potassium measurement (mass/ volume)Ordered By: Cal Powers on 01-19-2025 Potassium (Unsp spec) [Mass/Vol] 3.9 mmol/L 3.3-5.1 [facility] Protein Test strip Ql (U)Ord ered By: Cal Powers on 01-19-2025 Protein Ql (U) 15 mg/dl High Negative [facility] RBC Auto (Bld) [#/Vol]Ordere d By: Cal Powers on 01-19-2025 RBC (Bld) [#/Vol] 4.89 10*6/uL 4.6-6.2 [facility] Serum creatinine measurement (mass/volume)Ordered By: Cal Powers on 01-19-2025 Creatinine [Mass/Vol] 0.92 mg/dL 0.70-1.20 [facility] Serum glucose measurement (m ass/volume)Ordered By: Cal Powers on 01-19-2025 Glucose [Mass/Vol] 94 mg/dL 70-99 [facility] Serum or plasma calcium adeola urement (mass/volume)Ordered By: Cal Powers on 01-19-2025 Calcium [Mass/Vol] 9.2 mg/dL 7.6-11.0 [facility] Serum or plasma urea nitroge n measurement (mass/volume)Ordered By: Cal Powers on 01-19-2025 Urea nitrogen [Mass/Vol] 14 mg/dL 4-19 [facility] Sodium levelOrdered By: Cal Powers on 01-19-2025 Sodium [Moles/Vol] 137 mmol/L 133-145 [facility] Squamous epithelial cells de tection in urine sediment by light microscopyOrdered By: Cal oPwers on 01-19-2025 Epithelial cells.squamous LM Ql (Urine sed) 0 SEEN /hpf 0-5 [facility] Urinalysis, Completeon 01-19 BACTERIA 1+ /hpf Normal None Seen [facility] Comment on above: Order Comment: CLEAN CATCH Performed By: #### L 100.0100, L3410.9992, L500.4100, L3410.2400, L500.4050 #### [facility] [address] [place], [address] EPI,SQUAMOUS 0 SEEN Normal 0-5 [facility] Comment on above: Order Comment: CLEAN CATCH Performed By: #### L 100.0100, L3410.9992, L500.4100, L3410.2400, L500.4050 #### [facility] [address] [place], [address] Mucus Ql (Urine sed) 0 SEEN Normal [facility] Comment on above: Order Comment: CLEAN CATCH Performed By: #### L 100.0100, L3410.9992, L500.4100, L3410.2400, L500.4050 #### [facility] [address] [place], [address] RBC 0 SEEN Normal 0-5 [facility] Comment on above: Order Comment: CLEAN CATCH Performed By: #### L 100.0100, L3410.9992, L500.4100, L3410.2400, L500.4050 #### [facility] [address] [place], [address] WBC 0 SEEN Normal 0-5 [facility] Comment on above: Order Comment: CLEAN CATCH Performed By: #### L 100.0100, L3410.9992, L500.4100, L3410.2400, L500.4050 #### [facility] [address] [place], [address] Urine blood detectionOrdered By: Cal Powers on 01-19-2025 Urine Occult Blood Negative Negative [facility] Urine clarityOrdered By: Zay Powers on 01-19-2025 Clarity (U) Clear Clear [facility] Urine color determinationOrd ered By: Cal Powers on 01-19-2025 Color (U) Straw Yellow [facility] Urine glucose detectionOrder ed By: Cal Powers on 01-19-2025 Glucose Ql (U) Normal mg/dl Normal [facility] Urine leukocyte esterase det ection by dipstickOrdered By: Cal Powers on 01-19-2025 Leukocyte esterase Test strip Ql (U) Negative Negative [facility] Urine pHOrdered By: Cal Powers on 01-19-2025 pH (U) 8.0 [pH] 5.0 - 8.0 [facility] Urine sediment bacteria coun t by microscopy (number/high power field)Ordered By: Cal Powers on 01-19-2025 Bacteria LM.HPF (Urine sed) [#/Area] 1 /[HPF] None Seen [facility] Urine specific gravity measu rementOrdered By: Cal Powers on 01-19-2025 Specific gravity (U) [Rel density] 1.015 1.002-1.030 [facility] Urine urobilinogen measureme ntOrdered By: Cal Powers on 01-19-2025 Urobilinogen Ql (U) Normal mg/dl Normal [facility] Urobilinogen Ql (U)Ordered B y: Cal Powers on 01-19-2025 Urine Urobilinogen Normal mg/dl Normal [facility] White blood cell (WBC) count Ordered By: Cal Powers on 01-19-2025 WBC (Bld) [#/Vol] 6.9 10*3/uL 4.4-11.0 [facility] White blood cell countOrdere d By: Cal Powers on 01-19-2025 Urine WBC 0 SEEN /hpf 0-5 [facility] White blood cell count 0 SEEN /hpf 0-5 [facility] LABORATORYOrdered By: Tigist Armstrong on 12-22-2023 Amphetamines Screen Ql (U) Negative *NA* (12/22/23 6:35 PM) Invalid Interpretation Code Negative AO ADM SS Barbiturates Screen Ql (U) Negative *NA* (12/22/23 6:35 PM) Invalid Interpretation Code Negative AO ADM SS Benzodiazepines Ql (U) Negative *NA* (12/22/23 6:35 PM) Invalid Interpretation Code Negative AO ADM SS Benzoylecgonine Screen Ql (U) Negative *NA* (12/22/23 6:35 PM) Invalid Interpretation Code Negative AO ADM SS Cannabinoids Screen Ql (U) Negative *NA* (12/22/23 6:35 PM) Invalid Interpretation Code Negative AO ADM SS Methadone Screen Ql (U) Negative *NA* (12/22/23 6:35 PM) Invalid Interpretation Code Negative AO ADM SS Opiates Screen Ql (U) Negative *NA* (12/22/23 6:35 PM) Invalid Interpretation Code Negative AO ADM SS Phencyclidine Ql (U) Negative *NA* (12/22/23 6:35 PM) Invalid Interpretation Code Negative AO ADM SS Urine Drugs screened: See Below 1 (12/22/23 6:35 PM) Normal AO Chemistry S Comment on above: Interpretive Data: T his drug screen is a presumptive screening only. No confirmation will be performed unless requested. Drugs screened include: Threshold Amphetamines/Methamphetamines 1,000 ng/mL Barbiturates 200 ng/mL Benzodiazepine metabolites 200 ng/mL Cannabinoids (THC metabolites) 50 ng/mL Cocaine 300 ng/mL Opiates 300 ng/mL Methadone 300 ng/mL Phencyclidine (PCP) 25 ng/mL Testing has been performed FOR MEDICAL PURPOSES ONLY. Nguyễn 12-22-2023 Amphetamine (u) Negative Normal Negative [facility] ([place]) Comment on above: Performed By: #### U DRUG #### [address] [address] Barbiturate (u) Negative Normal Negative [facility] ([place]) Comment on above: Performed By: #### U DRUG #### [address] [address] Benzodiazepine (u) Negative Normal Negative [facility] ([place]) Comment on above: Performed By: #### U DRUG #### [address] [address] Cannabinoid (u) Negative Normal Negative [facility] ([place]) Comment on above: Performed By: #### U DRUG #### [address] [address] Cocaine Ql (U) Negative Normal Negative [facility] ([place] Comment on above: Performed By: #### U DRUG #### [address] [address] Methadone Ql (U) Negative Normal Negative [facility] ([place] Comment on above: Performed By: #### U DRUG #### [address] [address] Opiate (u) Negative Normal Negative [facility] ([place]) Comment on above: Performed By: #### U DRUG #### [address] [address] PCP (u) Negative Normal Negative [facility] ([place]) Comment on above: Performed By: #### U DRUG #### [address] [place] [address] Urine Drugs screened: See Below Normal [facility] ([place]) Comment on above: Result Comment: This drug screen is a presumptive screening only. No confirmation will be performed unless requested. Drugs screened include: Threshold Amphetamines/Methamphetamines 1,000 ng/mL Barbiturates 200 ng/mL Benzodiazepine metabolites 200 ng/mL Cannabinoids (THC metabolites) 50 ng/mL Cocaine 300 ng/mL Opiates 300 ng/mL Methadone 300 ng/mL Phencyclidine (PCP) 25 ng/mL Testing has been performed FOR MEDICAL PURPOSES ONLY. Performed By: #### U DRUG #### [place] [id number] AMYon 08-19-2023 Amylase [Catalytic activity/Vol] 75 U/L Normal 25-115 [facility] ([place] Comment on above: Performed By: #### A MY, [facility] #### [address] 08-19-2023 Bili Indirect 0.5 mg/dL Normal [facility] ([place] Comment on above: Performed By: #### A MY, HFP #### [place] [id number] Albumin Level 4.4 G/dL Normal 3.5-5.0 [facility] ([place] Comment on above: Performed By: #### A MY, [facility] #### [address] [address] Albumin/Globulin [Mass ratio] 1.3 {ratio} Normal 1.1-2.5 [facility] ([place] Comment on above: Performed By: #### A MY, HFP #### [address] [address] ALP [Catalytic activity/Vol] 61 U/L Normal 40-135 [facility] ([place] Comment on above: Performed By: #### A MY, HFP #### [address] [address] ALT [Catalytic activity/Vol] 21 U/L Normal 16-63 [facility] ([place] Comment on above: Performed By: #### A MY, HFP #### [place] [address] AST [Catalytic activity/Vol] 15 U/L Normal 10-40 [facility] ([place] Comment on above: Performed By: #### A MY, HFP #### [place] [address] Bili Direct 0.1 mg/dL Normal 0.0-0.2 [facility] ([place] Comment on above: Result Comment: Use of this assay is not recommended for patients undergoing treatment with eltrombopag due to the potential for falsely elevated results. Performed By: #### A MY, HFP #### [place] [address] Bili Total 0.6 mg/dL Normal 0.2-1.0 [facility] ([place] Comment on above: Result Comment: Use of this assay is not recommended for patients undergoing treatment with eltrombopag due to the potential for falsely elevated results. Performed By: #### A MY, HFP #### [place] [address] Globulin 3.5 G/dL Normal [facility] ([place] Comment on above: Performed By: #### A MY, HFP #### [place] [address] Total Protein 7.9 G/dL Normal 6.4-8.2 [facility] ([place] Comment on above: Performed By: #### A MY, HFP #### [place] [address] LABORATORYOrdered By: SYSTEM SYSTEM on 08-19-2023 Albumin BCP dye [Mass/Vol] 4.4 G/dL Invalid Interpretation Code 3.5 - 5.0 G/dL AO ADM SS Albumin/Globulin [Mass ratio] 1.3 {ratio} Invalid Interpretation Code 1.1 - 2.5 ratio AO ADM SS ALP [Catalytic activity/Vol] 61 U/L Invalid Interpretation Code 40 - 135 U/L AO ADM SS ALT With P-5'-P [Catalytic activity/Vol] 21 U/L Invalid Interpretation Code 16 - 63 U/L AO ADM SS Amylase [Catalytic activity/Vol] 75 U/L Invalid Interpretation Code 25 - 115 U/L AO ADM SS AST With P-5'-P [Catalytic activity/Vol] 15 U/L Invalid Interpretation Code 10 - 40 U/L AO ADM SS Bilirubin [Mass/Vol] 0.6 mg/dL Invalid Interpretation Code 0.2 - 1.0 mg/dL AO ADM SS Comment on above: Interpretive Data: U se of this assay is not recommended for patients undergoing treatment with eltrombopag due to the potential for falsely elevated results. Bilirubin.direct [Mass/Vol] 0.5 mg/dL Invalid Interpretation Code AO Chemistry S Bilirubin.direct [Mass/Vol] 0.1 mg/dL Invalid Interpretation Code 0.0 - 0.2 mg/dL AO ADM SS Comment on above: Interpretive Data: U se of this assay is not recommended for patients undergoing treatment with eltrombopag due to the potential for falsely elevated results. Globulin 3.5 G/dL Invalid Interpretation Code AO ADM SS Protein [Mass/Vol] 7.9 G/dL Invalid Interpretation Code 6.4 - 8.2 G/dL AO ADM SS LABORATORYOrdered By: Jennifer Hernández on 08-06-2022 Albumin BCP dye [Mass/Vol] 4.2 G/dL Invalid Interpretation Code 3.5 - 5.0 G/dL AO ADM SS Albumin/Globulin [Mass ratio] 1.3 {ratio} Invalid Interpretation Code 1.1 - 2.5 ratio AO ADM SS ALP [Catalytic activity/Vol] 68 U/L Invalid Interpretation Code 40 - 135 U/L AO ADM SS ALT With P-5'-P [Catalytic activity/Vol] 48 U/L Invalid Interpretation Code 16 - 63 U/L AO ADM SS AST With P-5'-P [Catalytic activity/Vol] 23 U/L Invalid Interpretation Code 10 - 40 U/L AO ADM SS Bilirubin [Mass/Vol] 0.9 mg/dL Invalid Interpretation Code 0.2 - 1.0 mg/dL AO ADM SS Bilirubin.direct [Mass/Vol] 0.2 mg/dL Invalid Interpretation Code 0.0 - 0.2 mg/dL AO ADM SS Globulin 3.2 G/dL Invalid Interpretation Code AO ADM SS Protein [Mass/Vol] 7.4 G/dL Invalid Interpretation Code 6.4 - 8.2 G/dL AO ADM SS LABORATORYOrdered By: SYSTEM SYSTEM on 08-06-2022 Bili Indirect 0.7 mg/dL Invalid Interpretation Code AO Chemistry S LABORATORYOrdered By: Jennifer Hernández on 06-23-2022 Albumin BCP dye [Mass/Vol] 4.0 G/dL Invalid Interpretation Code 3.5 - 5.0 G/dL AO ADM SS Albumin/Globulin [Mass ratio] 1.1 {ratio} Invalid Interpretation Code 1.1 - 2.5 ratio AO ADM SS ALP [Catalytic activity/Vol] 78 U/L Invalid Interpretation Code 40 - 135 U/L AO ADM SS ALT With P-5'-P [Catalytic activity/Vol] 50 U/L Invalid Interpretation Code 16 - 63 U/L AO ADM SS AST With P-5'-P [Catalytic activity/Vol] 23 U/L Invalid Interpretation Code 10 - 40 U/L AO ADM SS Bili Indirect 0.5 mg/dL Invalid Interpretation Code AO Chemistry S Bilirubin [Mass/Vol] 0.6 mg/dL Invalid Interpretation Code 0.2 - 1.0 mg/dL AO ADM SS Bilirubin.direct [Mass/Vol] 0.1 mg/dL Invalid Interpretation Code 0.0 - 0.2 mg/dL AO ADM SS Globulin 3.5 G/dL Invalid Interpretation Code AO ADM SS Protein [Mass/Vol] 7.5 G/dL Invalid Interpretation Code 6.4 - 8.2 G/dL AO ADM SS ANES iNk 10-31-2019 ANES POST HNO ID: [id number] Author: Bob Mccollum Service: Anesthesiology Author Type: Anesthesiologist Type: Anesthesia PostOp Filed: 10/31/2019 4:13 PM Note Text: POST ANESTHESIA EVALUATION NOTE SERVICE DATE: 10/31/2019 SERVICE TIME: 4:13 PM : 2000 Vitals: 10/31/19 1221 10/31/19 1313 Temp: 36.5 ?C (97.7 ?F) 36.5 ?C (97.7 ?F) 10/31/19 1221 10/31/19 1313 10/31/19 1330 10/31/19 1340 BP: 133/74 (!) 96/47 94/51 102/60 10/31/19 1221 10/31/19 1313 10/31/19 1330 10/31/19 1340 Pulse: (!) 54 (!) 48 (!) 44 (!) 40 10/31/19 1221 10/31/19 1313 10/31/19 1330 10/31/19 1340 Resp: 16 16 16 16 10/31/19 1221 10/31/19 1313 10/31/19 1330 10/31/19 1340 SpO2: 100% 95% 99% 100% Validated Vital Signs: Yes POST ANES STATUS: No apparent anesthetic complications. The patient is appropriately hydrated with stable respiratory and cardiovascular status. Patient has safe and adequate airway control. The patient has appropriate pain relief and no significant post operative nausea or vomiting. The patient has achieved baseline mental status. Further assessment by Anesthesia Service: None Other Remarks: SIGNATURE: Bob Mccollum MD PATIENT NAME: Wilber Dobbins DATE: October 31, 2019 TIME: 4:13 PM PAGER/CONTACT #: [phone] [facility] ANES PREOPon 10-31-2019 ANES PREOP HNO ID: [id number] Author: Manan Duke Service: Anesthesiology Author Type: Anesthesiologist Type: Anesthesia PreOp Filed: 10/31/2019 12:21 PM Note Text: ANESTHESIOLOGY DAY OF SURGERY NOTE SERVICE DATE: 10/31/2019 SERVICE TIME: 12:20 PM : 2000 Procedure(s) (LRB): COLONOSCOPY (N/A) Surgeon(s): Raul Nichols Estimated body mass index is 18.54 kg/m? as calculated from the following: Height as of 10/26/19: 176.5 cm (5' 9.5). Weight as of 10/26/19: 57.8 kg (127 lb 6.4 oz). Most recent hematocrit and potassium results: Hematocrit 41.7 10/20/2017 Potassium 3.8 10/20/2017 ANES DOS/PREOP NOTE: Vitals: There were no vitals filed for this visit. ACTIVE PROBLEM LIST Aquagenic Urticaria Environmental Allergies Psoriasis Psoriatic Arthritis (Hcc) Juvenile Idiopathic Arthritis, Psoriatic Subtype (Hcc) Long-Term Use of Immunosuppressant Medication Add (Attention Deficit Disorder) Without Hyperactivity Acne Mild Intermittent Asthma Without Complication Rectal Bleeding PAST MEDICAL HISTORY Diagnosis Date - ADD (attention deficit disorder) without hyperactivity 01/03/2015 - Allergy, unspecified not elsewhere classified - TAMERA (juvenile idiopathic arthritis) (HCC) - Psoriatic arthritis 12/08/2013 - Unspecified asthma(493.90) PAST SURGICAL HISTORY Procedure Laterality Date - NONE FAMILY HISTORY Problem Relation Age of Onset - Psoriasis Mother - Hypertension Maternal Grandfather - Diabetes Maternal Grandfather - Heart Maternal Grandfather - Thyroid Maternal Grandmother - Colon Cancer Paternal Grandmother 55 Social History: Social History Tobacco Use - Smoking status: Passive Smoke Exposure - Never Smoker - Smokeless tobacco: Never Used - Tobacco comment: dad smokes outside Substance Use Topics - Alcohol use: No - Drug use: No No current facility-administered medications on file prior to encounter. Current Outpatient Medications on File Prior to Encounter Medication Sig - Etanercept (ENBREL SURECLICK) 50 mg/mL (0.98 mL) pnij Inject 50 mg subcutaneously once each week. No current facility-administered medications for this encounter. Allergies: ALLERGIES Allergen Reactions - Cats - Dogs - Grass Pollen - Mold DOS EXAM: Adequate NPO status: Yes Anesthetic risks, benefits, alternatives, personnel and consent discussed: Yes Patient agrees to proceed: Yes Previous Anesthesia: No history of adverse event. Airway Assessment: MP 1; Neck ROM: Full ROM without neurologic symptoms; Airway Evaluation: No significant abnormalities Symptoms of Sleep Apnea: None Dentition: Teeth intact Additional Physical Exam: Lungs: Patient health status unchanged since recent history and physical. See history and physical for exam findings. Cardiac: Patient health status unchanged since recent history and physical. See history and physical for exam findings. Additional Pertinent Findings: N/A Blood Products: Not anticipated for this procedure. Anesthetic Plan: MAC with Sedation Pain Management Plan: Parenteral or Oral ASA Class: 2 Other Medical Problems: None Chronic Beta Cruzito medication administered within 24 hours: N/A I have interviewed and examined the patient. I have reviewed the medical record and/or the pre-anesthesia evaluation, pertinent labs, and test results. Significant changes in the patient's condition since the History and Physical, not otherwise documented in primary service progress notes: No This contains updated information obtained within 48 hours of Surgery/Procedure. SIGNATURE: Manan Duke MD PATIENT NAME: Wilber Dobbins DATE: October 31, 2019 TIME: 12:20 PM CSN: [id number] Normal [facility] HISTORY PHYSICALon 0 HISTORY PHYSICAL HNO ID: [id number] Author: Raul Nichols Service: General Surgery Author Type: Physician Type: HANDP Filed: 10/31/2019 12:34 PM Note Text: HISTORY AND PHYSICAL ? Wilber Dobbins 2000 ? REFERRING PHYSICIAN: MD Mayo ? CHIEF COMPLAINT: Consult (Consult Bright red blood in stool) ? HPI: The patient is a 19 year old male referred for endoscopy. Wilber notes a history of intermittent blood in stools x several months. He describes this as always bright red in color. He notes the blood is sometimes in the bowl, sometimes on paper with wiping, and sometimes appears mixed in within the stools. He denies any pain with bowel movements. ? Patient denies any change in bowel habits, weight changes,black tarry stools or abdominal pain. Notes family history of colon cancer in a grandparent, no first-degree relatives with colon cancer. The patient notes no upper GI complaints. Wilber has not undergone prior endoscopy. ? Patient's past medical history is significant for juvenile idiopathic arthritis with psoriatic subtype. He follows with the [facility] and is maintained on Enbrel. He states that he is generally in good health otherwise and denies any known cardiac or pulmonary issues. He is referred for endoscopy given concern for a comorbid autoiummune disorder such as Crohn's or ulcerative colitis as a possible cause of rectal bleeding. ? ? PAST MEDICAL HISTORY PAST MEDICAL HISTORY Diagnosis Date - ADD (attention deficit disorder) without hyperactivity 01/03/2015 - Allergy, unspecified not elsewhere classified ? - TAMERA (juvenile idiopathic arthritis) ([facility]) ? - Psoriatic arthritis 12/08/2013 - Unspecified asthma(493.90) ? ? ? PAST SURGICAL HISTORY PAST SURGICAL HISTORY Procedure Laterality Date - NONE ? CURRENT MEDICATIONS Current Outpatient Medications Medication Sig - Etanercept (ENBREL SURECLICK) 50 mg/mL (0.98 mL) pnij Inject 50 mg subcutaneously once each week. - peg 3350-Electrolytes (GOLYTELY) 236-22.74-6.74 -5.86 gram suspension Take 4,000 mL by mouth one time only for 1 dose. ? No current facility-administered medications for this visit. ? ? ALLERGIES: Cats; Dogs; Grass Pollen; Mold ? PERSONAL HISTORY: SOCIAL HISTORY Social History ? Tobacco Use - Smoking status: Passive Smoke Exposure - Never Smoker - Smokeless tobacco: Never Used - Tobacco comment: dad smokes outside Substance Use Topics - Alcohol use: No - Drug use: No ? FAMILY HISTORY: FAMILY HISTORY FAMILY HISTORY Problem Relation Age of Onset - Psoriasis Mother ? - Hypertension Maternal Grandfather ? - Diabetes Maternal Grandfather ? - Heart Maternal Grandfather ? - Thyroid Maternal Grandmother ? - Colon Cancer Paternal Grandmother 55 ? ? REVIEW OF SYMPTOMS: The review of systems data was entered by the nurse and reviewed by me ? Nursing Notes: Luke Yaron 10/26/2019 12:14 PM Signed REVIEW OF SYSTEMS: General: The patient denies fatigue, denies weight loss, denies weight gain, denies feeling hot, and denies feelings of cold. Eyes: The patient denies glaucoma, denies eye injury/surgery, wears glasses or contacts. Ear/Nose/Throat: The patient NOTES allergies, denies hayfever, denies ear infections, and denies bloody noses. Cardiovascular: The patient denies chest pain, denies heart disease, denies high blood pressure,denies cardiac stent, denies prior heart attack, denies irregular heart beat, denies high cholesterol, denies poor circulation, denies heart failure, other cardiac issues, denies claudication, denies cold feet, denies peripheral arterial stent. Respiratory: The patient denies tuberculosis, denies pneumonia, denies frequent cough, denies pulmonary embolism, denies shortness of breath, and denies coughing up blood. Gastrointestinal: The patient denies difficulty swallowing, denies acid reflux, denies ulcers, denies vomiting, denies jaundice/hepatitis, denies gallbladder problems, denies black or tarry stools, denies hemorrhoids, NOTES bleeding from rectum, denies diverticulitis, denies constipation, denies diarrhea, denies loss of stool control, and denies hernias. Kidney/Bladder: The patient denies kidney stones, denies urine infections, and denies bloody urine. Skin: The patient denies a history of skin cancer, denies bleeding/changing moles, and denies a history of skin rash. Neurologic: The patient denies a history of epilepsy/convulsions, denies headaches, denies head/spinal injuries, and denies stroke/TIA. Psychiatric: The patient denies psychiatric medications, denies depression, and denies voices, denies substance abuse. Endocrine: The patient denies thyroid disorders, denies diabetes, and denies hormonal problems. Hematologic: The patient denies a history of bruising, denies bleeding, and denies anemia, denies blood clots. Infections: The patient denies a history of measles and mumps, denies rheumatic fever, and denies sexually transmitted diseases. Musculoskeletal: The patient denies back pain/injury, denies back problems, denies sciatica, denies knee/foot trouble, NOTES arthritis, or denies gout. ? ? When was patient's last Mammogram screening? N/A ? Last Colonoscopy: NA ? Luke Marrufo I have confirmed and edited as necessary, the PFSH and ROS obtained by others. ? PHYSICAL EXAMINATION: ? General: The patient is 19 year old male, well nourished, well hydrated in no acute distress. The patient is oriented to time, place, and person. ? VITALS: Blood pressure 104/62, pulse 84, temperature 36.7 ?C (98 ?F), height 176.5 cm (5' 9.5), weight 59 kg (130 lb), SpO2 98 %. Body mass index is 18.92 kg/m?. ? HEENT: Normal cephalic, ataumatic, pupils are equally round, sclera are anicteric, mucous membranes are moist, oropharynx is clear. Neck has no masses, asymmetry or lymphadenopathy. ? Respiratory: Clear to auscultation and percussion. Normal respiratory excursion and pattern. ? Cardiac: Examination is regular rate and rhythm. Normal S1/S2 ? Abdominal exam: Soft, nontender, with no palpable masses. No hepatosplenomegaly. No palpable hernias. ? Extremities: no clubbing, cyanosis or edema. No adenopathy. ? LABORATORY VALUES: As Noted ? RADIOLOGIC STUDIES: As Noted ? ? Assessment IMPRESSION: bright red blood in stool, history of psoriatic arthritis, recommend colonoscopy for further evaluation to r/o Crohn's or ulcerative colitis ? PLAN: I have reviewed my findings with the surgeon. Will plan for lower endoscopy. We discussed the risks and benefits of the planned endoscopy. I have informed the patient that complications can occur including failure to complete the endoscopy and perforation. The patient had the opportunity to ask questions concerning the planned endoscopy. My staff has also explained the procedure to the patient in understandable terms and has given the patient printed material concerning the procedure. The patient freely consents to surgery. ? I plan to use Golytely bowel preparation ? We will plan for Monitored Anesthetic Care. ? ? Diagnoses: (K92.1) Blood in stool (primary encounter diagnosis) (L40.50) Psoriatic arthritis (HCC) ? ? Beatrice Heck PA-C [facility] PT EDon 10-31-2019 PT ED HNO ID: [id number] Author: Rodney CaballeroRn) SHERMAN Bullock Service: Nursing Author Type: Registered Nurse Type: Patient Education Filed: 10/31/2019 2:01 PM Note Text: POST OP LEARNING RESPONSE INSTRUCTION PROVIDED TO: Patient and family member METHOD OF INSTRUCTION: Written instruction - handouts Verbal instruction PATIENT / FAMILY RESPONSE: Verbalizes understanding of: POST-OPERATIVE INSTRUCTIONS-Correct actions to take to reduce postoperative complications FOLLOW-UP PLAN: Recommend - Recommend continued instruction and follow up as directed SUPPLEMENTAL MATERIAL: None REFERRAL (RECOMMENDATION): None Electronically Signed By: Rodney Bullock RN In Department: [facility] ENDOSCOPY [facility] PT ED HNO ID: [id number] Author: Paradise CaballeroRn) SHERMAN Fabian Service: Nursing Author Type: Registered Nurse Type: Patient Education Filed: 10/31/2019 12:25 PM Note Text: PRE OP LEARNING ASSESSMENT PROCEDURE/SURGERY: GI PROCEDURES: Colonoscopy READINESS TO LEARN COGNITIVE ABILITY: Alert and oriented MOTIVATION TO LEARN: Eager FAMILY SUPPORT: High - Very involved in pt care PATIENT LEARNS BEST BY: Verbal Instruction FACTORS AFFECTING LEARNING: None PHYSICAL LIMITATIONS AFFECTING LEARNING: None Electronically Signed By: Paradise Fabian RN In Department: [facility] ENDOSCOPY [facility] NURSING PROGon 10-27-2019 NURSING PROG HNO ID: [id number] Author: Jackie CaballeroRn) Christi, RN Service: ? Author Type: Registered Nurse Type: Nursing Progress Note Filed: 10/27/2019 9:37 AM Note Text: PACC Nurse Progress Note History AND Physical: PACC Visit Date: 10-26-2019 Original HANDP Date: 10-26-2019 ED visit Date: N/A Outside HANDP Scanned Date: N/A Labs Within Last 6 Months: N/A Imaging Within Last 12 Months: N/A Cardiac Testing: N/A Last Menstrual Period: LMP Date: N/A Postmenopausal >1yr: N/A, S/P Hysterectomy: N/A BMI Percentile (PEDS): N/A Risk Assessment: N/A Anesthesia Review: N/A Narrative: Patient had PACC/ HANDP on 10-26-2019. No consults or testing ordered by PACC provider. 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] Environmental allergies [Z91.09] Psoriasis [L40.9] Psoriatic arthritis (HCC) [L40.50] Juvenile idiopathic arthritis, psoriatic subtype (HCC) [L40.54] Long-term use of immunosuppressant medication [Z79.899] ADD (attention deficit disorder) without hyperactivity [F98.8] Acne [L70.9] Mild intermittent asthma without complication [J45.20] Rectal bleeding [K62.5] Allergies: Cats Dogs Grass Pollen Mold Date Verified: 10/31/19 Lab Values No results within the last 30 days for the following basenames: K,HCT Progress Notes ([facility]): Luke Marrufo 10/24/2019 4:37 PM Signed 10-31-2019 formerly [facility] Progress Notes ([facility]): Luke Marrufo 10/26/2019 12:14 PM Signed REVIEW OF SYSTEMS: General: The patient denies fatigue, denies weight loss, denies weight gain, denies feeling hot, and denies feelings of cold. Eyes: The patient denies glaucoma, denies eye injury/surgery, wears glasses or contacts. Ear/Nose/Throat: The patient NOTES allergies, denies hayfever, denies ear infections, and denies bloody noses. Cardiovascular: The patient denies chest pain, denies heart disease, denies high blood pressure,denies cardiac stent, denies prior heart attack, denies irregular heart beat, denies high cholesterol, denies poor circulation, denies heart failure, other cardiac issues, denies claudication, denies cold feet, denies peripheral arterial stent. Respiratory: The patient denies tuberculosis, denies pneumonia, denies frequent cough, denies pulmonary embolism, denies shortness of breath, and denies coughing up blood. Gastrointestinal: The patient denies difficulty swallowing, denies acid reflux, denies ulcers, denies vomiting, denies jaundice/hepatitis, denies gallbladder problems, denies black or tarry stools, denies hemorrhoids, NOTES bleeding from rectum, denies diverticulitis, denies constipation, denies diarrhea, denies loss of stool control, and denies hernias. Kidney/Bladder: The patient denies kidney stones, denies urine infections, and denies bloody urine. Skin: The patient denies a history of skin cancer, denies bleeding/changing moles, and denies a history of skin rash. Neurologic: The patient denies a history of epilepsy/convulsions, denies headaches, denies head/spinal injuries, and denies stroke/TIA. Psychiatric: The patient denies psychiatric medications, denies depression, and denies voices, denies substance abuse. Endocrine: The patient denies thyroid disorders, denies diabetes, and denies hormonal problems. Hematologic: The patient denies a history of bruising, denies bleeding, and denies anemia, denies blood clots. Infections: The patient denies a history of measles and mumps, denies rheumatic fever, and denies sexually transmitted diseases. Musculoskeletal: The patient denies back pain/injury, denies back problems, denies sciatica, denies knee/foot trouble, NOTES arthritis, or denies gout. When was patient's last Mammogram screening? N/A Last Colonoscopy: GASPER Heck PA-C 10/26/2019 5:47 PM Signed HISTORY AND PHYSICAL Wilber Dobbins 2000 REFERRING PHYSICIAN: MD Mayo CHIEF COMPLAINT: Consult (Consult Bright red blood in stool) HPI: The patient is a 19 year old male referred for endoscopy. Wilber notes a history of intermittent blood in stools x several months. He describes this as always bright red in color. He notes the blood is sometimes in the bowl, sometimes on paper with wiping, and sometimes appears mixed in within the stools. He denies any pain with bowel movements. Patient denies any change in bowel habits, weight changes,black tarry stools or abdominal pain. Notes family history of colon cancer in a grandparent, no first-degree relatives with colon cancer. The patient notes no upper GI complaints. Wilber has not undergone prior endoscopy. Patient's past medical history is significant for juvenile idiopathic arthritis with psoriatic subtype. He follows with the [facility] and is maintained on Enbrel. He states that he is generally in good health otherwise and denies any known cardiac or pulmonary issues. He is referred for endoscopy given concern for a comorbid autoiummune disorder such as Crohn's or ulcerative colitis as a possible cause of rectal bleeding. PAST MEDICAL HISTORY Diagnosis Date - ADD (attention deficit disorder) without hyperactivity 01/03/2015 - Allergy, unspecified not elsewhere classified - TAMERA (juvenile idiopathic arthritis) ([facility]) - Psoriatic arthritis 12/08/2013 - Unspecified asthma(493.90) PAST SURGICAL HISTORY Procedure Laterality Date - NONE Current Outpatient Medications Medication Sig - Etanercept (ENBREL SURECLICK) 50 mg/mL (0.98 mL) pnij Inject 50 mg subcutaneously once each week. - peg 3350-Electrolytes (GOLYTELY) 236-22.74-6.74 -5.86 gram suspension Take 4,000 mL by mouth one time only for 1 dose. No current facility-administered medications for this visit. ALLERGIES: Cats; Dogs; Grass Pollen; Mold PERSONAL HISTORY: Social History Tobacco Use - Smoking status: Passive Smoke Exposure - Never Smoker - Smokeless tobacco: Never Used - Tobacco comment: dad smokes outside Substance Use Topics - Alcohol use: No - Drug use: No FAMILY HISTORY: FAMILY HISTORY Problem Relation Age of Onset - Psoriasis Mother - Hypertension Maternal Grandfather - Diabetes Maternal Grandfather - Heart Maternal Grandfather - Thyroid Maternal Grandmother - Colon Cancer Paternal Grandmother 55 REVIEW OF SYMPTOMS: The review of systems data was entered by the nurse and reviewed by me Nursing Notes: Luke Marrufo 10/26/2019 12:14 PM Signed REVIEW OF SYSTEMS: General: The patient denies fatigue, denies weight loss, denies weight gain, denies feeling hot, and denies feelings of cold. Eyes: The patient denies glaucoma, denies eye injury/surgery, wears glasses or contacts. Ear/Nose/Throat: The patient NOTES allergies, denies hayfever, denies ear infections, and denies bloody noses. Cardiovascular: The patient denies chest pain, denies heart disease, denies high blood pressure,denies cardiac stent, denies prior heart attack, denies irregular heart beat, denies high cholesterol, denies poor circulation, denies heart failure, other cardiac issues, denies claudication, denies cold feet, denies peripheral arterial stent. Respiratory: The patient denies tuberculosis, denies pneumonia, denies frequent cough, denies pulmonary embolism, denies shortness of breath, and denies coughing up blood. Gastrointestinal: The patient denies difficulty swallowing, denies acid reflux, denies ulcers, denies vomiting, denies jaundice/hepatitis, denies gallbladder problems, denies black or tarry stools, denies hemorrhoids, NOTES bleeding from rectum, denies diverticulitis, denies constipation, denies diarrhea, denies loss of stool control, and denies hernias. Kidney/Bladder: The patient denies kidney stones, denies urine infections, and denies bloody urine. Skin: The patient denies a history of skin cancer, denies bleeding/changing moles, and denies a history of skin rash. Neurologic: The patient denies a history of epilepsy/convulsions, denies headaches, denies head/spinal injuries, and denies stroke/TIA. Psychiatric: The patient denies psychiatric medications, denies depression, and denies voices, denies substance abuse. Endocrine: The patient denies thyroid disorders, denies diabetes, and denies hormonal problems. Hematologic: The patient denies a history of bruising, denies bleeding, and denies anemia, denies blood clots. Infections: The patient denies a history of measles and mumps, denies rheumatic fever, and denies sexually transmitted diseases. Musculoskeletal: The patient denies back pain/injury, denies back problems, denies sciatica, denies knee/foot trouble, NOTES arthritis, or denies gout. When was patient's last Mammogram screening? N/A Last Colonoscopy: NA Luke Marrufo I have confirmed and edited as necessary, the PFSH and ROS obtained by others. PHYSICAL EXAMINATION: General: The patient is 19 year old male, well nourished, well hydrated in no acute distress. The patient is oriented to time, place, and person. VITALS: Blood pressure 104/62, pulse 84, temperature 36.7 ?C (98 ?F), height 176.5 cm (5' 9.5), weight 59 kg (130 lb), SpO2 98 %. Body mass index is 18.92 kg/m?. HEENT: Normal cephalic, ataumatic, pupils are equally round, sclera are anicteric, mucous membranes are moist, oropharynx is clear. Neck has no masses, asymmetry or lymphadenopathy. Respiratory: Clear to auscultation and percussion. Normal respiratory excursion and pattern. Cardiac: Examination is regular rate and rhythm. Normal S1/S2 Abdominal exam: Soft, nontender, with no palpable masses. No hepatosplenomegaly. No palpable hernias. Extremities: no clubbing, cyanosis or edema. No adenopathy. LABORATORY VALUES: As Noted RADIOLOGIC STUDIES: As Noted Assessment IMPRESSION: bright red blood in stool, history of psoriatic arthritis, recommend colonoscopy for further evaluation to r/o Crohn's or ulcerative colitis PLAN: I have reviewed my findings with the surgeon. Will plan for lower endoscopy. We discussed the risks and benefits of the planned endoscopy. I have informed the patient that complications can occur including failure to complete the endoscopy and perforation. The patient had the opportunity to ask questions concerning the planned endoscopy. My staff has also explained the procedure to the patient in understandable terms and has given the patient printed material concerning the procedure. The patient freely consents to surgery. I plan to use Golytely bowel preparation We will plan for Monitored Anesthetic Care. Diagnoses: (K92.1) Blood in stool (primary encounter diagnosis) (L40.50) Psoriatic arthritis (HCC) Beatrice Heck PA-C [facility] Vital Signs Date Time Vital Sign Value Performing Clinician Facility 03-22-2025 08:41-0400 Body height 177.8 cm Patricia MATUTE Work Phone: [facility] 03-22-2025 08:41-0400 Body mass index (BMI) [Ratio] 15.2 kg/m2 Patricia Archer CALL SPECIALIST-C Work Phone: [facility] 03-22-2025 08:41-0400 Body temperature 97.7 [degF] Patricia Archer CALL SPECIALIST-C Work Phone: [facility] 03-22-2025 08:41-0400 Body weight 48.13 kg Patricia Archer CALL SPECIALIST-C Work Phone: [facility] 03-22-2025 08:41-0400 Diastolic blood pressure 68 mm[Hg] Patricia Archer CALL SPECIALIST-C Work Phone: [facility] 03-22-2025 08:41-0400 Heart rate 88 /min Patricia Archer CALL SPECIALIST-C Work Phone: [facility] 03-22-2025 08:41-0400 SaO2% (BldA) [Mass fraction] 99 % Patricia Archer CALL SPECIALIST-C Work Phone: [facility] 03-22-2025 08:41-0400 Systolic blood pressure 99 mm[Hg] Patricia Archer CALL SPECIALIST-C Work Phone: [facility] 03-14-2025 10:08-0400 Body height 177.8 cm Patricia Archer CALL SPECIALIST-C Work Phone: [facility] 03-14-2025 10:08-0400 Body mass index (BMI) [Ratio] 15.3 kg/m2 Patricia Archer CALL SPECIALIST-C Work Phone: [facility] 03-14-2025 10:08-0400 Body weight 48.25 kg Patricia Archer CALL SPECIALIST-C Work Phone: [facility] 03-08-2025 08:19-0400 Body temperature 98.4 [degF] Patricia Archer CALL SPECIALIST-C Work Phone: [facility] 03-08-2025 08:19-0400 Diastolic blood pressure 90 mm[Hg] Patricia Archer CALL SPECIALIST-C Work Phone: [facility] 03-08-2025 08:19-0400 Heart rate 47 /min Patricia Archer CALL SPECIALIST-C Work Phone: [facility] 03-08-2025 08:19-0400 Respiratory rate 16 /min Patricia Archer CALL SPECIALIST-C Work Phone: [facility] 03-08-2025 08:19-0400 SaO2% (BldA) [Mass fraction] 100 % Patricia Archer CALL SPECIALIST-C Work Phone: [facility] 03-08-2025 08:19-0400 Systolic blood pressure 125 mm[Hg] Patricia Archer CALL SPECIALIST-C Work Phone: [facility] 03-08-2025 06:43-0400 Body height 177.8 cm Patricia Archer CALL SPECIALIST-C Work Phone: [facility] 03-08-2025 06:43-0400 Body mass index (BMI) [Ratio] 15.5 kg/m2 Patricia Archer CALL SPECIALIST-C Work Phone: [facility] 03-08-2025 06:43-0400 Body weight 49 kg Patricia Archer CALL SPECIALIST-C Work Phone: [facility] 03-02-2025 18:12-0400 Body temperature 97.1 [degF] Patricia Archer CALL SPECIALIST-C Work Phone: [facility] 03-02-2025 18:12-0400 Diastolic blood pressure 73 mm[Hg] Patricia Archer CALL SPECIALIST-C Work Phone: [facility] 03-02-2025 18:12-0400 Heart rate 74 /min Patricia Archer CALL SPECIALIST-C Work Phone: [facility] 03-02-2025 18:12-0400 Respiratory rate 16 /min Particia Archer CALL SPECIALIST-C Work Phone: [facility] 03-02-2025 18:12-0400 SaO2% (BldA) [Mass fraction] 100 % Patricia Archer CALL SPECIALIST-C Work Phone: [facility] 03-02-2025 18:12-0400 Systolic blood pressure 138 mm[Hg] Patricia Archer CALL SPECIALIST-C Work Phone: [facility] 03-02-2025 15:24-0400 Body mass index (BMI) [Ratio] 16.7 kg/m2 Patricia Archer CALL SPECIALIST-C Work Phone: [facility] 03-02-2025 15:24-0400 Body weight 52.79 kg Patricia Archer CALL SPECIALIST-C Work Phone: [facility] 01-19-2025 18:53-0400 Body temperature 97.9 [degF] Patricia Archer CALL SPECIALIST-C Work Phone: [facility] 01-19-2025 18:53-0400 Diastolic blood pressure 82 mm[Hg] Patricia Archer CALL SPECIALIST-C Work Phone: [facility] 01-19-2025 18:53-0400 Heart rate 75 /min Patricia Archer CALL SPECIALIST-C Work Phone: [facility] 01-19-2025 18:53-0400 Respiratory rate 18 /min Patricia Archer CALL SPECIALIST-C Work Phone: [facility] 01-19-2025 18:53-0400 SaO2% (BldA) [Mass fraction] 98 % Patricia Archer CALL SPECIALIST-C Work Phone: [facility] 01-19-2025 18:53-0400 Systolic blood pressure 107 mm[Hg] Patricia Archer CALL SPECIALIST-C Work Phone: [facility] 01-19-2025 16:16-0400 Body height 177.8 cm Patricia Archer CALL SPECIALIST-C Work Phone: [facility] 01-19-2025 16:16-0400 Body mass index (BMI) [Ratio] 19.1 kg/m2 Patricia Archer CALL SPECIALIST-C Work Phone: [facility] 01-19-2025 16:16-0400 Body weight 60.28 kg Patricia Archer CALL SPECIALIST-C Work Phone: [facility] 08-10-2022 05:18-0400 Body temperature 98.42 [degF] CADEN DURESKA DO [facility] 08-10-2022 05:18-0400 Diastolic blood pressure 79 mm[Hg] CADEN DURESKA DO [facility] 08-10-2022 05:18-0400 Heart rate 57 /min CADEN DURESKA DO [facility] 08-10-2022 05:18-0400 Mean blood pressure 95 mm[Hg] CADEN DURESKA DO [facility] 08-10-2022 05:18-0400 Respiratory rate 18 /min CADEN DURESKA DO [facility] 08-10-2022 05:18-0400 Systolic blood pressure 127 mm[Hg] CADEN DURESKA DO [facility] Encounters Encounter Date Encounter Type Care Provider Facility Start: 03-22-2025 End: 03-22-2025 ambulatory Patricia Archer CALL SPECIALIST-C Work Phone: [facility] Work Phone: Start: 03-22-2025 End: 03-22-2025 Patient encounter procedure Patricia FRITZ -[facility] Work Phone: Start: 03-21-2025 Patient encounter procedure Patricia FRITZ -Laboratory Work Phone: Start: 03-15-2025 End: 03-15-2025 ambulatory Patricia Archer CALL SPECIALIST-C Work Phone: [facility] Work Phone: Start: 03-15-2025 End: 03-15-2025 Patient encounter procedure Patricia FRITZ -Laboratory Work Phone: Start: 03-14-2025 End: 03-14-2025 Patient encounter procedure Patricia FRITZ -[facility] Work Phone: Start: 03-14-2025 End: 03-15-2025 ambulatory Eve Dobbins Facility:[facility] Start: 03-08-2025 ambulatory Eve Dobbins Facility: [facility] Start: 03-08-2025 Non-patient / Non-visit Blair Odell DO -[facility] Start: 03-08-2025 End: 03-08-2025 Admission to same day surgery center Blair Odell DO -Endoscopy Work Phone: Start: 03-08-2025 End: 03-08-2025 ambulatory Patricia Archer CALL SPECIALIST-C Work Phone: [facility] Work Phone: Start: 03-02-2025 End: 03-02-2025 Emergency department patient visit Dr. Zi Wilkins MD -Emergency Department Work Phone: Start: 02-28-2025 End: 02-28-2025 Patient encounter procedure Patricia FRITZ -[facility] Work Phone: Start: 02-28-2025 End: 02-28-2025 ambulatory Patricia Archer CALL SPECIALIST-C Work Phone: [facility] Work Phone: Start: 02-22-2025 Encounter for genera l adult medical examination with abnormal findings Evemeng Dobbins [facility] Start: 02-14-2025 End: 02-14-2025 ambulatory Patricia Archer CALL SPECIALIST-C Work Phone: [facility] Work Phone: Start: 02-14-2025 End: 02-14-2025 Patient encounter procedure Eve MATUTE -Laboratory, Specimen Work Phone: Start: 02-13-2025 End: 02-14-2025 ambulatory Patricia Archer CALL SPECIALIST-C Work Phone: [facility] Work Phone: Start: 02-13-2025 End: 02-13-2025 Patient encounter procedure Eve Dobbins CALL SPECIALIST-C -Laboratory Work Phone: Start: 02-13-2025 End: 02-13-2025 ambulatory Evemeng Dobbins Facility:[facility] Start: 01-19-2025 End: 01-19-2025 Emergency department patient visit Patricia Archer CALL SPECIALIST-C Work Phone: -Emergency Department Work Phone: Start: 12-22-2023 End: 12-27-2023 ambulatory PATRICIA BAHENAMARSHA UTILITY MECHANIC SUPERVISOR-COAGULATING BATH OPERATOR Facility:[facility] Start: 12-22-2023 End: 12-26-2023 Outreach Lab PATRICIA ARCHER UTILITY MECHANIC SUPERVISOR-COAGULATING BATH OPERATOR [facility] Start: 08-19-2023 End: 08-24-2023 ambulatory PATRICIA ARCHER UTILITY MECHANIC SUPERVISOR-COAGULATING BATH OPERATOR Facility:[facility] Start: 08-19-2023 End: 08-23-2023 Outreach Lab PATRICIA ARCHER UTILITY MECHANIC SUPERVISOR-COAGULATING BATH OPERATOR [facility] Start: 09-25-2022 End: 09-25-2022 ambulatory [facility] Work Phone: Start: 09-25-2022 End: 09-25-2022 Patient encounter procedure [facility] Start: 08-10-2022 End: 08-10-2022 Emergency department patient visit CADEN PAIGE DO [facility] Start: 08-06-2022 End: 08-06-2022 Patient encounter procedure DAVID HYATT JR DO [facility] Start: 06-23-2022 End: 06-23-2022 Patient encounter procedure PATRICIA ARCHER UTILITY MECHANIC SUPERVISOR-COAGULATING BATH OPERATOR [facility] Procedures Date Procedure Procedure Detail Performing Clinician Start: 03-15-2025 In-vitro immunologic test Patricia Suzi CALL SPECIALIST-C Work Phone: Comment on above: QuantiFERON-TB Gold Plus is a qualitativ e indirect test forM tuberculosis infection (including disease) and isintended for use in conjunction with risk assessment,radiography, and other medical and diagnostic evaluations.The QuantiFERON-TB Gold Plus result is determined bysubtracting the Nil value from either TB antigen (Ag)value. The Mitogen tube serves as a control for the test. No response to M tub erculosis antigens detected.Infection with M tuberculosis is unlikely, but high riskindividuals should be considered for additional testing(ATS/IDSA/CDC Clinical Practice Guidelines, 2017). Thereference range is an Antigen minus Nil result of <0.35IU/mL.The specimen received for QuantiFERON testing was incubatedby the ordering institution. Specific procedures outlinedin our Directory of Services and in the package insert forthe QuantiFERON Gold (In Tube) test must be followed toenable for proper stimulation of cells for the productionof interferon gamma. Chemiluminescence immunoassaymethodologyPerformed at: [facility] [id number] Director: Virgilio Knight PhD, Phone: [phone] Start: 03-08-2025 Nucleic acid assay Patricia Bahenamarsha CALL SPECIALIST-C Work Phone: Start: 03-08-2025 Iadna-dna/rna gi pthgn multiplex probe tq 6-11 Patricia Archer CALL SPECIALIST-C Work Phone: Start: 03-08-2025 Colonoscopy Patricia Archer CALL SPECIALIST-C Work Phone: Start: 03-02-2025 Estimated creatinine clearance Patricia olvera CALL SPECIALIST-C Work Phone: Start: 02-14-2025 Clostridium difficile detection Patricia Archer CALL SPECIALIST-C Work Phone: Start: 02-14-2025 Lactoferrin measurement Patricia Archer CALL SPECIALIST-C Work Phone: Start: 02-14-2025 Nucleic acid assay Patricia Archer CALL SPECIALIST-C Work Phone: Start: 02-14-2025 Ova OR parasites identification Patricia Archer CALL SPECIALIST-C Work Phone: Start: 02-14-2025 Iadna-dna/rna gi pthgn multiplex probe tq 6-11 Patricia Archer CALL SPECIALIST-C Work Phone: Start: 02-13-2025 Endomysial antibody IgA level Patricia telles CALL SPECIALIST-C Work Phone: Start: 02-13-2025 Procedure Patricia Archer CALL SPECIALIST-C Work Phone: Comment on above: Test Ordered: [id number] SoybeanTes t(s) [id number] Soybeanwas developed and its performance characteristicsdetermined by [employer]. It has not been cleared or approvedby the Food and Drug Administration. The FDA hasdetermined that such clearance or approval is notnecessary. Results of this test are for investigationalpurposes only. The result should not be used as adiagnostic procedure without confirmation of the diagnosisby another medically established diagnostic product orprocedure.[id number] Soybean 7.2 [H ] ug/mL Reference Range: 0.0-1.9Performed at: [facility] [id number] Director: Marry Gaming MD, Phone: [phone] at: [address] [id number] Director: Virgilio Knight PhD, Phone: [phone] Test Ordered: [id number] Food Allergy ProfileClass Description Comment BN Reference Range: . Levels of Specific IgE Class Description of Class ----- < 0.10 0 Negative 0.10 - 0.31 0/I Equivocal/Low 0.32 - 0.55 I Low 0.56 - 1.40 II Moderate 1.41 - 3.90 III High 3.91 - 19.00 IV Very High 19.01 - 100.00 V Very High >100.00 Very AhwjS913-CfK Egg White <0.10 kU/L BN Reference Range: Class 8B125-PoC Peanut <0.10 kU/L BN Reference Range: Class 7B777-TbC Soybean <0.10 kU/L BN Reference Range: Class 7S085-OaB Milk <0.10 kU/L BN Reference Range: Class 9W723-EvK Clam <0.10 kU/L BN Reference Range: Class 7Z990-HcI Shrimp 0.92 [A ] kU/L BN Reference Range: Class QKJ937-XoE [place] <0.10 kU/L BN Reference Range: Class 7L264-HhI Codfish <0.10 kU/L BN Reference Range: Class 2K421-TdH Scallop <0.10 kU/L BN Reference Range: Class 9H920-WaJ Wheat <0.10 kU/L BN Reference Range: Class 8X801-PkU Lexa 0.25 [A ] kU/L BN Reference Range: Class 0/IA757-OlY Sesame Seed <0.10 kU/L BN Reference Range: Class 0Performed at: [facility] [address] [id number] Director: Marry Gaming MD, Phone: [phone] at: [facility] [id number] Director: Virgilio Knight PhD, Phone: [phone] Start: 01-19-2025 CT of abdomen and pelvis without contrast Patricia FLEMINGC Work Phone: Start: 01-19-2025 Estimated creatinine clearance Patricia olvera CALL SPECIALISTFrankC Work Phone: Start: 01-19-2025 Urnls dip stick/tablet reagent auto microscopy Patricia Archer CALL SPECIALISTFrankC Work Phone: Start: 09-25-2022 CT of face Laboratory test result abnormal Abnormal laboratory test PATRICIA ARCHER UTILITY MECHANIC SUPERVISOR-COAGULATING BATH OPERATOR Plan of Treatment Date Care Activity Detail Author Start: 03-22-2025 Patient referral [facility] Work Phone: Start: 03-15-2025 Procedure [facility] Start: 03-08-2025 Colonoscopy w/biopsy single/multiple COLONOSCOPY AND BIOPSY [facility] Start: 03-08-2025 Enteric Bacteriology Enteric Bacteriology [facility] Start: 03-08-2025 Clostridioides difficile DNA [Presence] in Unspecified specimen by DARIN with probe detection [facility] Start: 03-08-2025 Patient discharge [facility] Start: 03-02-2025 [facility] Start: 03-02-2025 [facility] Start: 02-14-2025 Ova and Parasites Ova and Parasites [facility] Start: 02-13-2025 Procedure [facility] Start: 01-19-2025 [facility] C reactive protein [Mass/volume] in Serum or Plasma [facility] Colonoscopy [facility] Erythrocyte sediment ation rate [facility] Nucleic acid assay [facility] Nucleic acid assay [facility] Ova OR parasites identification [facility] Patient Education [facility] Work Phone: Patient referral [facility] Work Phone: Protein measurement [facility] XR Abdomen Single view [facility] Immunizations Immunization Date Immunization Notes Care Provider Fa dimitris 12-22-2023 tetanus toxoid, redu roxann diphtheria toxoid, and acellular pertussis vaccine, adsorbed; Translations: [Boostrix (Tdap)] PATRICIA ARCHER UTILITY MECHANIC SUPERVISORSequence Design [facility] 04-27-2015 Human Papillomavirus Quadval PATRICIA ARCHER Oncodesign [facility] 09-20-2014 Human Papillomavirus Quadval PATRICIA ARCHER [employer] [facility] 09-20-2014 influenza virus vacc ine, unspecified formulation PATRICIA ARCHER [employer] [facility] 09-20-2014 meningococcal polysaccharide (groups A, C, Y and W-135) diphtheria toxoid conjugate vaccine (MCV4P) PATRICIA ARCHER UTILITY MECHANIC SUPERVISOR-COAGULATING BATH OPERATOR [facility] 2000 haemophilus influenz ae type b vaccine, HbOC conjugate PATRICIA ARCHER UTILITY MECHANIC SUPERVISOR-COAGULATING BATH OPERATOR [facility] 2000 hepatitis B pediatri c vaccine PATRICIA ACRHER UTILITY MECHANIC SUPERVISOR-COAGULATING BATH OPERATOR [facility] 2000 hepatitis B pediatri c vaccine PATRICIA ARCHER UTILITY MECHANIC SUPERVISOR-COAGULATING BATH OPERATOR [facility] Payers Date Payer Category Payer Private Health Insurance [id number] 2025 Self-pay [id number] 2023 Unknown [id number] 2000 Unknown [id number] 2.16.8 [id number] 1998 Unknown [id number] 2.16.8 [id number] Unknown [id number] Unknown [id number] 2.16.8 [id number] Unknown [id number] 2.16.8 [id number] Unknown [id number] 2.16.8 [id number] Unknown [id number] 2.16.8 [id number] Unknown [id number] 2.16.8 [id number] Unknown [id number] 2.16.8 [id number] Unknown [id number] 2.16.8 [id number] Unknown [id number] 2.16.8 [id number] Unknown [id number] 2.16.8 [id number] Social History Date Type Detail Facility Tobacco Nicotine Use: Va ping Product in Last 90 Days. Exposure to Tobacco Smoke Lives in non-smoking home. Type: Electronic Cigarettes (Vaping). [facility] Tobacco smoking status [facility] Start: 03-30-2019 Tobacco smoking status ARIS Unknown if ever smoked [facility] Work Phone: Start: 2000 Sex Assigned At Male [facility] Start: 09-17-2023 End: 03-03-2025 Tobacco smoking status Ex-smoker (finding) [facility] Start: 01-19-2025 Tobacco smoking status NHIS Never smoked tobacco (finding) [facility] Start: 01-19-2025 Sex Male (finding) [facility] Goals Date Patient Goal Desired Activity /State Functional Status Date Assessment Result Facility 08-10-2022 Functional Status ID band on, Call device within reach, Bed in low position, Wheels locked, Upper/Half-Length side-rails up, Phone within reach, personal items within reach, Visitor at bedside, Safety level maintained [facility] Mental Status Date Assessment Result Facility 03-08-2025 Cognitive function Voice/Name [facility] Work Phone: 08-10-2022 Mental Status Oriented x 4 [facility] Clinical Notes 08-10-2022 to 03-08-2025 Note Date & Type Note Facility 03-08-2025 Consult note [facility] 03-08-2025 Consult note [facility] 03-08-2025 Procedure note [facility] 03-08-2025 Procedure note [facility] 03-08-2025 History and physi catrachita note [facility] 03-08-2025 Note [facility] Medical Records Department [address] [place] [address] History Physical Exam 03/08/25 0723 MR#: [id number] Acct: [id number] Name: WILBER DOBBINS Rep #: [id number] : 2000 24 From: Blair Friend DO PCP: Eve Dobbins, CALL SPECIALIST-C Status:[facility] Location: [place] [address] HPI - General General Date of Admission: 03/08/25 Date of Service: 03/08/25 Chief Complaint: Chronic diarrhea, weight loss and lower GI bleeding HPI Narrative WILBER DOBBINS, is a 24 M who presents for the evaluation of chronic diarrhea, weight loss and lower GI bleeding. [facility] ED 01.19.25 with concern for kidney stone. N/v and left sided flanks pain. Work up unremarkable CT abd/pelvis 01.19.25: *No acute findings in the abdomen and pelvis. *No evidence of nephrolithiasis or hydronephrosis. *Moderate colonic stool. Referred to [facility] from PCP for 3 weeks of bloody diarrhea and abdominal cramping. Pt endorses weight loss. Minimal relief with dicyclomine, cipro and budesonide. Hx of psoriatic arthritis and ankylosing spondylitis. On Humira but discontinues a few months ago. Enbrel for 10 years. Stool 5.6.25; lactoferrin positive, enteric path negative, c.dif negative OV 5.20.25 Pt endorses loose stool for about 3 weeks. He is having up to 20 loose stools per day. This is waking up him out of his sleep. It is not post prandial. He endorses a 10-15 lbs weight loss over this time. Prior to this, he was having a daily formed stool with no GI symptoms. He has a family hx of UC and personal hx of autoimmune conditions including psoriatic arthritis and ankylosing spondylitis. He had a colonoscopy about 6 years due to blood in his stool but this was negative. [facility] Medical History History of steroid therapy Wears contact lenses Wears glasses Alcohol use Ankylosing spondylitis Psoriatic arthritis History of GI bleed Former smoker Home Medications ???Medication ???Instructions ???Recorded ???Last Taken ???Type amoxicillin 875 mg-potassium 875 mg PO Q12H #14 TABLETS 5 03/07/25 Rx clavulanate 125 mg tablet prednisone 20 mg tablet 20 mg PO BID 03/03/25 03/07/25 His tory Allergy/AdvReac Type Severity Reaction Status Date / Time No Known Allergies Allergy Verified 03/08/25 06:42 Surgical History History of colonoscopy History of rhinoplasty Social History household members: spouse housing: house Smoking Status: Former smoker ROS Constitutional Constitutional: Denies fatigue, fever(s), poor appetite, weight gain or weight loss Gastrointestinal Gastrointestinal: Denies belching, bloating, change in bowel habits, change in stool character, chewing difficulty, coffee ground emesis, constipation, cramping, diarrhea, dyspepsia, dysphagia, early satiety, excessive flatus, fecal incontinence, heartburn, hematemesis, hematochezia, hemorrhoids, loose stools, melena, nausea, odynophagia, rectal bleeding, tenesmus, vomiting or weight changes Vital Signs Vital Signs Vital Signs: 03/08/25 06:43 03/08/25 06:43 03/08/25 07:16 Temperature 97.8 F 97.8 F Temperature Source Temporal Pulse Rate 85 85 Respiratory Rate 17 17 Respiratory Pattern Normal Blood Pressure 128/90 H 128/90 H Blood Pressure Mean 102 Blood Pressure Source Monitor Blood Pressure Position Semi-Fowlers Blood Pressure Location Left Arm Pulse Ox 100 100 Oxygen Delivery Method Room Air Room Air Weight Weight: 108 lb 0.424 oz Body Mass Index (BMI) 15.5 Physical Exam Const alert, oriented x3, no apparent distress and healthy appearing General Appearance: cooperative GI normal to inspection, nondistended, normoactive bowel sounds, soft to palpation, non-tender and non- distended Percussion: normal to percussion Rectal Exam: deferred Assessment Plan Assessment/Plan (1) Chronic diarrhea: (2) Blood in stool: (3) Abdominal pain: (4) Weight loss: (5) Diarrhea: PLAN: Assessment and Plan Assessment and Plan (1) Diarrhea: Status: Acute Plan: This is a 24 yo male pt here today for evaluation of diarrhea x3 weeks associated with weight loss and abdominal pain. Pt has a PMHx of psoriatic arthritis and ankylosing spondylitis and was on Humira but recently discontinued due to INS issues. He endorses a family hx of UC. Work up thus fur with PCP has included stool testing which was negative for enteric paths and c.dif however lactoferrin was positive. He has been on Budesonide which has not provided relief. I will order calprotectin, ESR and CRP. He will be scheduled for colonoscopy as I have high suspicion for UC given autoimmune hx, family hx and symptoms. He may take Imodium in the meantime to control th (more content not included)... [facility] 03-08-2025 Consult note [facility] 02-28-2025 Evaluation note Diagnosis Onset Date Resolution Abdominal pain acute February 28, 2025 8:23am Blood in stool acute February 28, 2025 8:23am Diarrhea acute February 28, 2025 8:23am Weight loss acute February 28 8:23am Abdominal pain acute March 08, 2025 5:56am Blood in stool acute March 08, 2025 5:56am Diarrhea acute March 08, 2025 5:56am Weight loss acute March 08 5:56am Chronic diarrhea chronic February 5:56am [facility] Work Phone: 1(788) 572-899105-20-2025 Evaluation note* Diagnosis Onset Date Resolution Status Admit Date Abdominal pain acute February 28, 2025 8:23am Blood in stool acute February 28, 2025 8:23am Diarrhea acute February 28, 2025 8:23am Weight loss acute February 28 8:23am Abdominal pain acute March 08, 2025 5:56am Blood in stool acute March 08, 2025 5:56am Diarrhea acute March 08, 2025 5:56am Weight loss acute March 08 5:56am Chronic diarrhea inactive February 5:56am Ulcerative colitis acute March 142024 10:00am [facility] Work Phone: 1(942) 500-854705-20-2025 Evaluation note* Diagnosis Onset Date Resolution Status Admit Date Abdominal pain acute February 28, 2025 8:23am Blood in stool acute February 28, 2025 8:23am Diarrhea acute February 28, 2025 8:23am Weight loss acute February 28 8:23am Abdominal pain acute March 08, 2025 5:56am Blood in stool acute March 08, 2025 5:56am Diarrhea acute March 08, 2025 5:56am Weight loss acute March 08 5:56am Chronic diarrhea inactive February 5:56am Ulcerative colitis acute March 142024 10:00am Ankylosing spondylitis acute 2024 8:29am Psoriatic arthritis acute March 22, 2025 8:29am Ulcerative colitis acute March 122024 8:29am Weight loss acute March 22 8:29am [facility] Work Phone: 1(940) 321-388104-10-2025 Radiology Diagnostic study note [facility] Imaging Services [address] [place] [address] Abdomen/Pelvis without Cont MR#: [id number] Acct: [id number] Name: WILBER DOBBINS Rep #: [id number] : 2000 M 24 From: Cara Garcia MD PCP: GIOVANI Mendieta Status: REG E R Study:Abdomen/Pelvis without Cont Date of Exa m: 01/19/25 Exam# [id number] Ordering Dr: Cal Powers DO PROCEDURE: ABDOMEN/PELVIS WITHOUT CONT 01/19/2025 REASON FOR EXAM: KIDNEY STONE TECHNIQUE: Abdomen and pelvis CT without intravenous contrast. Noncontrast technique limits evaluation of the abdominal and pelvic viscera. Coronal and Sagittal reconstruction series were provided. One or more dose reduction techniques were used (e.g., Automated exposure control, adjustment of the mA and/or kV according to patient size, use of iterative reconstruction technique). PATIENT PREPARATION: Per protocol ORAL CONTRAST TYPE: None. AMOUNT: mL COMPARISON: None FINDINGS: Lung bases: Unremarkable Liver: Normal size. No obvious mass. Gallbladder: No cholelithiasis or wall thickening. Spleen: Normal size. Pancreas: Normal size. No surrounding inflammation. Adrenals: Unremarkable Kidneys: No urolithiasis. No hydronephrosis. Bladder: Urinary bladder is unremarkable. Reproductive Organs: No pelvic mass. Bowel: Stomach is unremarkable. No bowel dilation or wall thickening. Moderatecolonic stool. Appendix: Normal appendix. Lymph nodes: No suspicious adenopathy. Vasculature: The abdominal aorta and IVC contours are normal. Noncontrast technique limits evaluation. Peritoneum / Retroperitoneum: No ascites. No pneumoperitoneum. Bones: No suspicious osseous lesions. Soft tissues are unremarkable. CT/Abdomen/Pelvis without Cont IMPRESSION: *No acute findings in the abdomen and pelvis. *No evidence of nephrolithiasis or hydronephrosis. *Moderate colonic stool. Reading Location: [place] CC: GIOVANI Archer; Dr. Cal Powers DO ~ Master Technician: Signed [facility]10-30-2022 Hospital Discharge instructions Patient Education 08/10/2022 05:47:40 Conjunctivitis, Non-Specific Conjunctivitis, Nonspecific The membrane that covers the white part of your eye (the conjunctiva) is inflamed. Inflammation happens when your body responds to an injury, allergic reaction, infection, or illness. Symptoms of inflammation in the eye may include redness, irritation, itching, swelling, or burning. These symptoms should go away within the next 24 hours. Conjunctivitis may be related to a particle that was in your eye. If so, it may wash out with your tears or irrigation treatment. Being exposed to liquid chemicals or fumes may also cause this reaction. Home care Apply a cold pack over the eye for 20 minutes at a time. This will reduce pain. To make a cold pack, put ice cubes in a plastic bag that seals at the top. Wrap the bag in a clean, thin towel or cloth. Artificial tears may be prescribed to reduce irritation or redness. These should be used 3 to 4 times a day. You may use acetaminophen or ibuprofen to control pain, unless another medicine was prescribed. (Note: If you have chronic liver or kidney disease, or if you have ever had a stomach ulcer or gastrointestinal bleeding, talk with your healthcare provider before using these medicines.) Follow-up care Follow up with your healthcare provider, or as advised. When to seek medical advice Call your healthcare provider right away if any of these occur: Increased eyelid swelling Increased eye pain Increased redness or drainage from the eye Increased blurry vision or increased sensitivity to light Failure of normal vision to return within 24 to 48 hours [employer]. [address] [place] [address]. All rights reserved. This information is not intended as a substitute for professional medical care. Always follow yourhealthcare professional's instructions. 08/10/2022 05:47:30 Conjunctival Foreign Body, Resolved Particle in the Eye The conjunctiva is a thin membrane in the eye. It covers the white of the eye and the inside of theeyelid. A very small object such as an eyelash or dirt can become trapped under the eyelid. This iscalled a conjunctival foreign body. This can be very irritating to the eye, no matter how small theobject is. If the exam shows that you no longer have a particle in your eye, any discomfort should go away within the next 24 hours. Home care Hold a cool compress over the sore eye to relieve pain and swelling. Put a cool compress on the eye that hurts. A cool compress is a towel soaked in cool water. Do this3 to 4 times a day. It will help ease redness and swelling. You can use artificial tears to ease irritation and redness, unless another medicine was prescribed. You can buy artificial tears at [employer]. You can use dtix-yup-thpjwtc pain medicine such as acetaminophen or ibuprofen to control pain, unless another pain medicine was prescribed. If you have chronic liver or kidney disease, or if you haveever had a stomach ulcer or gastrointestinal bleeding, talk with your doctor before using these medicines. If the foreign body causes a scratch on your cornea, the healthcare provider will likely prescribe an antibiotic eye drop. Follow-up care Follow up with your healthcare provider, or as advised. When to seek medical advice Contact your healthcare provider right away if any of these occur: Increased swelling of the eyelid Increased pain or redness in the eye Drainage from the eye Redness in the skin around the eye [employer]. [address] [place] [address]. All rights reserved. This information is not intended as a substitute for professional medical care. Always follow yourhealthcare professional's instructions. Follow Up Care 08/10/2022 05:19:13 With:PATRICIA ARCHER APRN-COAGULATING BATH OPERATOR Address: [address] [facility] [place], [place] [id number]- [phone] When:2-[address] [facility] 10-30-2022 Note Discharge Instructions Thank you for allowing [facility] to assist you with your healthcare needs. The following is importantdischarge information regarding your hospital visit. Diagnosis from Today's Visit Chemical injury to conjunctiva Eye foreign body What to Do Next Instructions from Your Care Team No qualifying data available. Post Acute Orders No qualifying data available. You Need to Schedule the Following Appointments Follow Up with PATRICIA ARCHER When Within 2-4 days Where: [address] [place] [address]- [phone] Allergies NKA Medications Please ask your primary doctor or pharmacist before taking any other medication not listed, including over the counter drugs, herbal medications, vitamins and or supplements as they may interact withyour home medications. What How Much When Why Instructions Last Dose New ofloxacin ophthalmic (ofloxacin 0.3% ophthalmic solution) 1 Drops Right eye Every 4 hours Chemical injury to conjunctiva Duration: 5 Days Printed Prescription Unchanged adalimumab (Humira Pen 40 mg/ 0.4 mL subcutaneous kit) Unchanged amphetamine-dextroamphetamine (Adderall XR 25 mg oral capsule, extended release) 1 cap by mouth Once a day (in the morning) ADHD Oarrs reviewed Do not fill until Unchanged amphetamine-dextroamphetamine (Adderall XR 25 mg oral capsule, extended release) 1 cap by mouth Once a day (in the morning) ADHD Duration: 30 Days Oarrs reviewed Do not fill until Unchanged amphetamine-dextroamphetamine (amphetamine-dextroamphetamine 25 mg oral capsule, extendedrelease) 1 cap by mouth Once a day (in the morning) ADHD Oarrs reviewed Do not fill until Unchanged nicotine (NicoDerm CQ 14 mg/ 24 hr transdermal patch) 1 patch(es) Transdermal Every day Duration: 6 week(s) Unchanged terbinafine (terbinafine 250 mg oral tablet) 1 tab(s) by mouth Once a day Duration: 30 Days Please take this list to your next doctor s visit. Bring all medications you take, including over the counter medications, herbals and other supplements with you to your doctor s visit. Patients and families are reminded to discard old lists and to update any records with all medication providers or retail pharmacies. Education Materials Conjunctivitis, Nonspecific The membrane that covers the white part of your eye (the conjunctiva) is inflamed. Inflammation happens when your body responds to an injury, allergic reaction, infection, or illness. Symptoms of inflammation in the eye may include redness, irritation, itching, swelling, or burning. These symptoms should go away within the next 24 hours. Conjunctivitis may be related to a particle that was in your eye. If so, it may wash out with your tears or irrigation treatment. Being exposed to liquid chemicals or fumes may also cause this reaction. Home care Apply a cold pack over the eye for 20 minutes at a time. This will reduce pain. To make a cold pack, put ice cubes in a plastic bag that seals at the top. Wrap the bag in a clean, thin towel or cloth. Artificial tears may be prescribed to reduce irritation or redness. These should be used 3 to 4 times a day. You may use acetaminophen or ibuprofen to control pain, unless another medicine was prescribed. (Note: If you have chronic liver or kidney disease, or if you have ever had a stomach ulcer or gastrointestinal bleeding, talk with your healthcare provider before using these medicines.) Follow-up care Follow up with your healthcare provider, or as advised. When to seek medical advice Call your healthcare provider right away if any of these occur: Increased eyelid swelling Increased eye pain Increased redness or drainage from the eye Increased blurry vision or increased sensitivity to light Failure of normal vision to return within 24 to 48 hours [id number] [employer]. [address] [place] [address]. All rights reserved. This information is not intended as a substitute for professional medical care. Always follow yourhealthcare professional's instructions. Particle in the Eye The conjunctiva is a thin membrane in the eye. It covers the white of the eye and the inside of theeyelid. A very small object such as an eyelash or dirt can become trapped under the eyelid. This iscalled a conjunctival foreign body. This can be very irritating to the eye, no matter how small theobject is. If the exam shows that you no longer have a particle in your eye, any discomfort should go away within the next 24 hours. Home care Hold a cool compress over the sore eye to relieve pain and swelling. Put a cool compress on the eye that hurts. A cool compress is a towel soaked in cool water. Do this3 to 4 times a day. It will help ease redness and swelling. You can use artificial tears to ease irritation and redness, unless another medicine was prescribed. You can buy artificial tears at drugstores. You can use ugdo-ihw-qpgilag pain medicine such as acetaminophen or ibuprofen to control pain, unless another pain medicine was prescribed. If you have chronic liver or kidney disease, or if you haveever had a stomach ulcer or gastrointestinal bleeding, talk with your doctor before using these medicines. If the foreign body causes a scratch on your cornea, the healthcare provider will likely prescribe an antibiotic eye drop. Follow-up care Follow up with your healthcare provider, or as advised. When to seek medical advice Contact your healthcare provider right away if any of these occur: Increased swelling of the eyelid Increased pain or redness in the eye Drainage from the eye Redness in the skin around the eye [id number] [employer]. [address] [place] [address]. All rights reserved. This information is not intended as a substitute for professional medical care. Always follow yourhealthcare professional's instructions. Additional Information VACCINATE! IT SAVES LIVES! Members of the community who have not yet received the COVID-19 vaccine and would like to receive it can visit one of [facility] vaccine clinics. There are many vaccine clinic locations within the [facility]. For locations and available times, please visit [email or web address]. It is important to note that some COVID mobile vaccine clinics are held outdoors and may be canceled in rainy orstormy conditions. To learn more about pediatric vaccinations (ages 5-11), we invite you to visit the [facility] webpage. [email or web address] [email or web address].htmlTo learn more about the COVID-19 vaccine, we invite you to visit the [employer] website for a list of frequently asked questions. [email or web address] _[email or web address] [email or web address] Patient Portal Access Instructions: Stay connected with your healthcare team and access your personal medical information anytime with the [email or web address] Patient Portal. If you would like a full copy of your medical records please contact the [facility] Medical Records Department Thursday through Thursday between 8a.m. and 4:30p.m. Please follow the directions below to access the portal: 1.Access the email account you provided upon registration to the [facility].2.Look for an invitation email from [facility].3.Open the email and access the invitation link: Accept Invitation to [email or web address]4.Fill in the required yo to create your account. Sign into [email or web address] with your username and password that you created in the above steps to stay up to date. You can then view a summary of results, a summary of your visits, and the ability to download your summaries to your computer or send the information securely to a physician. Remember that your healthcare information is confidential, so carefully consider who you will allow to register on the [facility] Patient Portal for access to your information. You can also access the [email or web address] Patient Portal on the [employer] dereje. Simply click on Health Records under [employer] and then click on the [facility] logo. HOW TO SAFELY DISPOSE OF PRESCRIPTION MEDICATIONS Please use one of the following methods to safely dispose of your unused medications. 1.Use a drug disposal kit: the drug disposal pouch allows you to safely discard your old and unuseddrugs. Ask your nurse to give you one when you are discharged.2.Visit a local take-back location: Many local pharmacies and police departments have programs that collect old and unwanted prescriptiondrugs. Call your local pharmacy or go to http://bit.[employer]2A4Uu4n to find one close to you.3.Make use of household items: Use cat litter or old coffee grounds to dispose medications if other options arenot available. Mix your drugs with these household products, seal them in an airtight container andthrow it into the garbage. Call [place] Hospital: [phone] to be sure your drugs can be disposed of in this way. Some medicines may require a different approach.4.Never flush your medications down the toilet. IF YOU HAVE BEEN PRESCRIBED AN OPIOIDS FOR PAIN If you have been prescribed an opioid (such as hydrocodone, oxycodone or morphine), it is critical to understand the possible side effects and risks of opioid pain medications. Even when taken as directed, opioids can have several side effects including: Tolerance, meaning you might need to take more of a medication for the same pain relief. Nausea, vomiting and/or constipation. Sleepiness, dizziness, dry mouth, confusion, depression or itching. Physical dependence, meaning you have withdrawal symptoms when a medication is stopped ? this can develop within a few days. KNOW YOUR RESPONSIBILITIES It is important to know exactly how much and how often to take the opioid pain medications you are prescribed. Never take opioids in higher amounts or more often than prescribed. Do not combine opioids with alcohol or other drugs that cause drowsiness, such as benzodiazepines, also known as benzos,including diazepam and alprazolam, muscle relaxants or sleep aids. Never sell or share prescriptionopioids. This is illegal. Store opioids in a secure place and out of reach of others (including children, family, friends and visitors). The last page(s) of this document has been signed and retained as a CHART COPY Signatures Patient Education Materials Conjunctivitis, Non-Specific Conjunctival Foreign Body, Resolved Medication Leaflets My discharge plan and instructions have been reviewed and explained to me and I,WILBER DOBBINS understand my current condition and have read and understand these discharge instructions. I have received a written copy of the plan/instructions. If I have questions, I am aware that I should contact my doctor. 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 The following is importantdischarge information regarding your hospital visit. Diagnosis from Today's Visit Chemical injury to conjunctiva Eye foreign body What to Do Next Instructions from Your Care Team No qualifying data available. Post Acute Orders No qualifying data available. You Need to Schedule the Following Appointments Follow Up with PATRICIA ARCHER When Within 2-4 days Where: [address] [facility] [place] [address]- [phone] Allergies NKA Medications Please ask your primary doctor or pharmacist before taking any other medication not listed, including over the counter drugs, herbal medications, vitamins and or supplements as they may interact withyour home medications. What How Much When Why Instructions Last Dose New ofloxacin ophthalmic (ofloxacin 0.3% ophthalmic solution) 1 Drops Right eye Every 4 hours Chemical injury to conjunctiva Duration: 5 Days Printed Prescription Unchanged adalimumab (Humira Pen 40 mg/ 0.4 mL subcutaneous kit) Unchanged amphetamine-dextroamphetamine (Adderall XR 25 mg oral capsule, extended release) 1 cap by mouth Once a day (in the morning) ADHD Oarrs reviewed Do not fill until Unchanged amphetamine-dextroamphetamine (Adderall XR 25 mg oral capsule, extended release) 1 cap by mouth Once a day (in the morning) ADHD Duration: 30 Days Oarrs reviewed Do not fill until Unchanged amphetamine-dextroamphetamine (amphetamine-dextroamphetamine 25 mg oral capsule, extendedrelease) 1 cap by mouth Once a day (in the morning) ADHD Oarrs reviewed Do not fill until Unchanged nicotine (NicoDerm CQ 14 mg/ 24 hr transdermal patch) 1 patch(es) Transdermal Every day Duration: 6 week(s) Unchanged terbinafine (terbinafine 250 mg oral tablet) 1 tab(s) by mouth Once a day Duration: 30 Days Please take this list to your next doctor s visit. Bring all medications you take, including over the counter medications, herbals and other supplements with you to your doctor s visit. Patients and families are reminded to discard old lists and to update any records with all medication providers or retail pharmacies. Education Materials Conjunctivitis, Nonspecific The membrane that covers the white part of your eye (the conjunctiva) is inflamed. Inflammation happens when your body responds to an injury, allergic reaction, infection, or illness. Symptoms of inflammation in the eye may include redness, irritation, itching, swelling, or burning. These symptoms should go away within the next 24 hours. Conjunctivitis may be related to a particle that was in your eye. If so, it may wash out with your tears or irrigation treatment. Being exposed to liquid chemicals or fumes may also cause this reaction. Home care Apply a cold pack over the eye for 20 minutes at a time. This will reduce pain. To make a cold pack, put ice cubes in a plastic bag that seals at the top. Wrap the bag in a clean, thin towel or cloth. Artificial tears may be prescribed to reduce irritation or redness. These should be used 3 to 4 times a day. You may use acetaminophen or ibuprofen to control pain, unless another medicine was prescribed. (Note: If you have chronic liver or kidney disease, or if you have ever had a stomach ulcer or gastrointestinal bleeding, talk with your healthcare provider before using these medicines.) Follow-up care Follow up with your healthcare provider, or as advised. When to seek medical advice Call your healthcare provider right away if any of these occur: Increased eyelid swelling Increased eye pain Increased redness or drainage from the eye Increased blurry vision or increased sensitivity to light Failure of normal vision to return within 24 to 48 hours [phone] [employer]. [address] [place] [address]. All rights reserved. This information is not intended as a substitute for professional medical care. Always follow yourhealthcare professional's instructions. Particle in the Eye The conjunctiva is a thin membrane in the eye. It covers the white of the eye and the inside of theeyelid. A very small object such as an eyelash or dirt can become trapped under the eyelid. This iscalled a conjunctival foreign body. This can be very irritating to the eye, no matter how small theobject is. If the exam shows that you no longer have a particle in your eye, any discomfort should go away within the next 24 hours. Home care Hold a cool compress over the sore eye to relieve pain and swelling. Put a cool compress on the eye that hurts. A cool compress is a towel soaked in cool water. Do this3 to 4 times a day. It will help ease redness and swelling. You can use artificial tears to ease irritation and redness, unless another medicine was prescribed. You can buy artificial tears at drugstores. You can use gksi-ovo-sunpqwo pain medicine such as acetaminophen or ibuprofen to control pain, unless another pain medicine was prescribed. If you have chronic liver or kidney disease, or if you haveever had a stomach ulcer or gastrointestinal bleeding, talk with your doctor before using these medicines. If the foreign body causes a scratch on your cornea, the healthcare provider will likely prescribe an antibiotic eye drop. Follow-up care Follow up with your healthcare provider, or as advised. When to seek medical advice Contact your healthcare provider right away if any of these occur: Increased swelling of the eyelid Increased pain or redness in the eye Drainage from the eye Redness in the skin around the eye [phone] [employer]. [address] [place] [address]. All rights reserved. This information is not intended as a substitute for professional medical care. Always follow yourhealthcare professional's instructions. Additional Information VACCINATE! IT SAVES LIVES! Members of the community who have not yet received the COVID-19 vaccine and would like to receive it can visit one of [facility] vaccine clinics. There are many vaccine clinic locations within the [facility]. For locations and available times, please visit [email or web address]. It is important to note that some COVID mobile vaccine clinics are held outdoors and may be canceled in rainy orstormy conditions. To learn more about pediatric vaccinations (ages 5-11), we invite you to visit the [facility] webpage. [email or web address] [email or web address].htmlTo learn more about the COVID-19 vaccine, we invite you to visit the [facility] website for a list of frequently asked questions. [email or web address] [facility] Patient Portal Access Instructions: Stay connected with your healthcare team and access your personal medical information anytime with the [facility] Patient Portal. If you would like a full copy of your medical records please contact the [facility] Medical Records Department Thursday through Thursday between 8a.m. and 4:30p.m. Please follow the directions below to access the portal: 1.Access the email account you provided upon registration to the [facility].2.Look for an invitation email from [facility].3.Open the email and access the invitation link: Accept Invitation to [email or web address].Fill in the required yo to create your account. Sign into [email or web address] with your username and password that you created in the above steps to stay up to date. You can then view a summary of results, a summary of your visits, and the ability to download your summaries to your computer or send the information securely to a physician. Remember that your healthcare information is confidential, so carefully consider who you will allow to register on the [facility] Patient Portal for access to your information. You can also access the [email or web address] Patient Portal on the [employer]. Simply click on Health Records under [employer] and then click on the [facility] logo. HOW TO SAFELY DISPOSE OF PRESCRIPTION MEDICATIONS Please use one of the following methods to safely dispose of your unused medications. 1.Use a drug disposal kit: the drug disposal pouch allows you to safely discard your old and unuseddrugs. Ask your nurse to give you one when you are discharged.2.Visit a local take-back location: Many local pharmacies and police departments have programs that collect old and unwanted prescriptiondrugs. Call your local pharmacy or go to http://evOLED.[employer]0U0Jw5x to find one close to you.3.Make use of household items: Use cat litter or old coffee grounds to dispose medications if other options arenot available. Mix your drugs with these household products, seal them in an airtight container andthrow it into the garbage. Call [facility]: [phone] to be sure your drugs can be disposed of in this way. Some medicines may require a different approach.4.Never flush your medications down the toilet. IF YOU HAVE BEEN PRESCRIBED AN OPIOIDS FOR PAIN If you have been prescribed an opioid (such as hydrocodone, oxycodone or morphine), it is critical to understand the possible side effects and risks of opioid pain medications. Even when taken as directed, opioids can have several side effects including: Tolerance, meaning you might need to take more of a medication for the same pain relief. Nausea, vomiting and/or constipation. Sleepiness, dizziness, dry mouth, confusion, depression or itching. Physical dependence, meaning you have withdrawal symptoms when a medication is stopped ? this can develop within a few days. KNOW YOUR RESPONSIBILITIES It is important to know exactly how much and how often to take the opioid pain medications you are prescribed. Never take opioids in higher amounts or more often than prescribed. Do not combine opioids with alcohol or other drugs that cause drowsiness, such as benzodiazepines, also known as benzos,including diazepam and alprazolam, muscle relaxants or sleep aids. Never sell or share prescriptionopioids. This is illegal. Store opioids in a secure place and out of reach of others (including children, family, friends and visitors). The last page(s) of this document has been signed and retained as a CHART COPY Signatures Patient Education Materials Conjunctivitis, Non-Specific Conjunctival Foreign Body, Resolved Medication Leaflets My discharge plan and instructions have been reviewed and explained to me and I,WILBER DOBBINS understand my current condition and have read and understand these discharge instructions. I have received a written copy of the plan/instructions. If I have questions, I am aware that I should contact my doctor. 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 Signature: Date/Time: Relationship to Patient: Witness Name/Signature: Date/Time: [facility] note Author Cheryl Swan [facility] Note Date/Time March 08, 2025 7:16a [facility] Medical Records Department [address] [place] [address] Pre-Anesthesia Evaluation 03/08/25 0714 MR#: [id number] Acct: [id number] Name: WILBER DOBBINS Rep #:[id number] : 2000 24 From: Cheryl Swan PCP: Eve Dobbins CALL SPECIALIST-C Status:REG SDC Y Race: C Location: [place] [address] ASA Classification* ASA Classification ASA Classification: 2 Assessment & Plan Anesthesia* Anesthesia Assessment Anesthesia Assessment: Discussed sedation and/or anesthesia options, risks, benefits, and alternatives with patient/parents/legal guardian/POA. Questions invited. The patient/parents/legal guardian/POA seems to understand and agrees to proceedwith anesthesia plan. Reviewed the physical assessment, medical history, allergy history and patient home medications list prior to surgery/procedure/anesthetic and documented any changes. Performed airway and anesthesia risk assessments. Anesthesia Type Anesthesia Type: MAC History Source History Obtained from:: Patient and Chart Anesthesia Focused Assessment* Temperature: 97.8 F Pulse Rate: 85 Blood Pressure: 128/90 Respiratory Rate: 17 Pulse Ox: 100 Oxygen Delivery Method: Room Air Airway Assessment Mouth opens: >3 cm Mallampati Score: I Teeth Condition: Intact Neck Range of motion (ROM): Full ROM Focused Labs Anesthesia Preop lab: CBC WBC 22.7 K/mm3 (4.4-11.0) H 03/02/25 15:40 5 RBC 4.54 M/mm3 (4.6-6.2) L 03/02/25 15:40 03/02/25 Hgb 13.0 g/dL (13.0-16.5) 03/02/25 15:40 03/02/25 Hct 38.0 % (40-54) L 03/02/25 15:40 03/02/25 Plt Count 632 K/mm3 (150-450) H 03/02/25 15:40 03/02/25 CHEMISTRY Potassium 3.6 mmol/L (3.3-5.1) 03/02/25 15:40 03/02/25 Sodium 134 mmol/L (133-145) 03/02/25 15:40 03/02/25 BUN 9 mg/dL (4-19) 03/02/25 15:40 03/02/25 Creatinine 0.85 mg/dL (0.70-1.20) 03/02/25 15:40 03/02/25 Glucose 104 mg/dL (70-99) H 03/02/25 15:40 03/02/25 COAG Pre-Assessment Diagnosis/Proposed Procedure Planned Operative Procedure(s): COLONOSCOPY Anesthesia History Anesthesia History - welt drawer: Anesthesia History - welt drawer Hx Hospitalization No 03/03/25 14:07 Any Problems With Anesthesia No 03/03/25 14:07 Cholinesterase deficiency No 03/03/25 14:07 You/Your Family Experience No 03/03/25 14:07 fever (hyperthermia) with Relationship Recent Exposure to Contagious No 03/08/25 06:43 Disease Does patient have nerve No 03/03/25 14:07 stimulator Patient instructed to have device shut off --Does patient have Pacemaker No 03/08/25 06:43 or ICD? When Was Last Pacemaker Check QUESTION #4 FULL TEXT: You/Your Family Experience fever (hyperthermia) with Anesthesia Last Oral Intake Last Oral intake: Last Oral Intake NPO since 03:30 03/08/25 06:43 Meds taken in AM with sips of No 03/08/25 06:43 water? Meds patient instructed to take am of surgery PONV PONV - welt drawer: PONV - welt drawer Female No 03/03/25 14:07 HX of Motion Sickness No 03/03/25 14:07 HX of N/V After Surgery No 03/03/25 14:07 Non-Smoker Yes 03/03/25 14:07 Duration of Surgery greater No 03/03/25 14:07 than 60 minutes Number of Risk Factors 1 03/03/25 14:07 PONV Score Low Risk 03/03/25 14:07 Height & Weight Height & Weight: Anesthesia: Height & Weight Height 5 ft 10 in 03/08/25 06:43 Weight: 49 kg 03/08/25 06:43 Body Mass Index (BMI) 15.5 03/08/25 06:43 Respiratory Assessment Respiratory Assessment - welt drawer: Respiratory Tract Infection Hx - welt drawer Hx Respiratory Tract Infection No 03/03/25 14:07 STOP Sleep Apnea STOP Sleep Apnea - welt drawer: STOP Sleep Apnea - welt drawer Hx Hypertension No 03/03/25 14:07 Hx Sleep Apnea No 03/03/25 14:07 CPAP BIPAP Do you snore loudly (louder Yes 03/03/25 14:07 than talking or can be heard Do you often feel tired/ Yes 03/03/25 14:07 fatigued/ sleepy during daytime? Has anyone observed you stop Yes 03/03/25 14:07 breathing during sleep? STOP Results Positive 03/03/25 14:07 QUESTION #5 FULL TEXT : Do you snore loudly (louder than talking or can be heard through closed doors)? Tobacco Use History Tobacco Use History - welt drawer: Tobacco Use History - welt drawer Tobacco Use Smoking Status Former smoker 03/03/25 14:07 Hx Tobacco Use No 03/03/25 14:07 Years Smoking Packs Smoked per Day Smoking Cessation Date was No - quit smoking greater 03/03/25 14:07 within the last 15 years than 15 years ago Hx Smoking Cessation Date Hx Smoking Cessation Counseling Hematologic Medial History Hematologic Hx - welt drawer: Hematologic Medical Hx - cutter hot knife Hx of Blood Transfusion No 03/03/25 14:07 Hx of Transfusion in last 3 No 03/03/25 14:07 Months Date of Last Transfusion (if within last 3 months) Ever experience any problems No 03/03/25 14:07 with transfusion(s)? Specify any problems Hx of Preganancy in last 3 N/A 03/03/25 14:07 Months Nurse Filling Out Transfusion MGRIFFITH 03/03/25 14:07 & Questions: Date: 03/03/25 03/03/25 14:07 Time: 14:09 03/03/25 14:07 Patient unable to answer at this time (ie. confused, unrespo /Reproduction History /Reproductive History - welt drawer: /Reproductive Hx- welt drawer Hx Now Gestational Age (in weeks): EDC: Hx Hx Para Hx Section SAB Active Medications Active Medications: Current Medications Generic Name Dose Route Start Last Admin Trade Name Freq PRN Reason Stop Dose Admin Lactated Ringer's 1,000 mls @ 15 mls/hr 03/08/25 06:30 03/08/25 06:51 IV 15 mls/hr .Q48H MARZENA Administration PFSH Medical History History of steroid therapy Wears contact lenses Wears glasses Alcohol use Ankylosing spondylitis Psoriatic arthritis History of GI bleed Former smoker Home Medications ?Medication ?Instructions ?Recorded ?Last Taken ?Type amoxicillin 875 mg-potassium 875 mg PO Q12H #14 TABLET S 03/02/25 03/07/25 Rx clavulanate 125 mg tablet prednisone 20 mg tablet 20 mg PO BID 03/03/25 History Allergy/AdvReac Type Severity Reaction Status Date / Time No Known Allergies Allergy Verified 03/08/25 06:42 Surgical History History of colonoscopy History of rhinoplasty Social History household members: spouse housing: house Smoking Status: Former smoker Review of Systems (Anesthesia) ROS Narrative System reviewed and no additional complaints, except as documented. 03/08/25715 <Electronically signed by Cheryl Swan > Date _ Cheryl Castilloigner Signature: Date CC: ~ Signed [facility] Work Phone: Consult note Author Prosper Daly [facility] Note Date/Time March 08, 2025 8:45a m [facility] Medical Records Department [address] [place] [id number] Anesthesia Postop Eval I 03/08/25 0802 MR#: [id number] Acct: [id number] Name: WILBER DOBBINS Rep #:[id number] : 2000 24 From: Prosper Daly PCP: GIOVANI Hayes Status:REG SDC Y Race: C Location: [place] [address] Anesthesia: Postop Eval I Current Vital Signs Temperature: 97.8 F Pulse Rate: 67 Blood Pressure: 112/76 Respiratory Rate: 16 Pulse Ox: 100 Oxygen Delivery Method: Room Air Assessment Airway patent: Yes Spontaneous unlabored respirations: Yes Mental status: Awake and Calm nausea: No Vomiting: No Anesthesia Complication: No Fluid Hydration Crystalloid volume administer (ml): 500 Total IV fluid infused: 500 Progress Note Anesthesia document: Postop Eval 1 completed: Yes 03/08/25 08 <Electronically signed by Prosper Daly > Date _ Prosper Daly Cosigner Signature: Date CC: ~ Signed [facility] Work Phone: Consult note Author Candida Harrell [facility] Note Date/Time March 08, 2025 8:45a m [facility] Medical Records Department [address] [place] [address] Anesthesia Postop Eval II 03/08/25812 MR#: [id number] Acct: [id number] Name: WILBER DOBBINS Rep #:[id number] : 2000 24 From: Candida Harrell PCP: GIOVANI Hayes Status:REG SDC Y Race: C Location: [place] [address] Anesthesia Postop Eval I Sum Postop Eval Completion status Anesthesia document: Postop Eval 1 completed: Yes Anesthesia Postop Eval I Summary Anesthesia Postop Eval I Summary: Anesthesia Postop Eval I: Assessment Summary Airway patent Yes 03/08/25 08:02 [email or web address] Spontaneous unlabored Yes 03/08/25 08:02 [email or web address] respirations Mental status Awake,Calm 03/08/25 08:02 [email or web address] nausea No 03/08/25 08:02 [email or web address] Vomiting No 03/08/25 08:02 [email or web address] Anesthesia Postop Eval I: Fluid Summary Crystalloid volume administer 500 03/08/25 08:02 [email or web address] (ml) Colloids volume administered ( ml) Blood Product volume administered (ml) Total IV fluid infused 500 03/08/25 08:02 [email or web address] Anesthesia Postop Eval I: Summary Notes Anesthesia Complication No 03/08/25 08:02 [email or web address] Anesthesia Complication Comment: Post-operative progress note Anesthesia: Postop Eval II Evaluation Mental status: Calm Pain Level: 0 nausea: No Vomiting: No 03/08/25 0813 <Electronically signed by Candida cates> Date _ Candida Messer Signature: Date CC: ~ Signed [facility] Work Phone: Evaluation + Plan note Future Appointments Appointment Date:09/15/2022 08:00:00 AM Scheduled Provider:PATRICIA ARCHER Location:[facility] Appointment Type:PC OV Future Scheduled Tests Laboratory* Hepatic Function Panel 07/30/22 * Hepatic Function Panel 09/10/22 [facility] Evaluation + Plan note Future Appointments Appointment Date:09/17/2023 04:00:00 PM Scheduled Provider:JOHNY GILL Location:[facility] Appointment Type:PC OV Controlled Medication [facility] Evaluation + Plan note Future Appointments Appointment Date:03/23/2024 08:30:00 AM Scheduled Provider:PATRICIA ARCHER Location:[facility] Appointment Type:PC OV Controlled Medication [facility] Evaluation noteNo assessment information available [facility] Work Phone: Evaluation note* Diagnosis Onset Date Resolution Status Admit Date Abdominal pain acute February 28, 2025 8:23am Blood in stool acute February 28, 2025 8:23am Diarrhea acute February 28, 2025 8:23am Weight loss acute February 28 8:23am [facility] Work Phone: History and physical note Author Blair Odell [facility] Note Date/Time March 08, 2025 7:25a m [facility] Medical Records Department [address] [place] [address] History & Physical Exam 03/08/25 0723 MR#: [id number] Acct: [id number] Name: WILBER DOBBINS Rep #:[id number] : 2000 24 From: Blair Odell DO PCP: Eve Dobbins, CALL SPECIALIST-C Status:REG [facility] Location: [place] [address] HPI - General General Date of Admission: 03/08/25 Date of Service: 03/08/25 Chief Complaint: Chronic diarrhea, weight loss and lower GI bleeding HPI Narrative WILBER DOBBINS, is a 24 M who presents for the evaluation of chronic diarrhea, weight loss and lower GI bleeding. [facility] ED 01.19.25 with concern for kidney stone. N/v and left sided flanks pain. Work up unremarkable CT abd/pelvis 01.19.25: *No acute findings in the abdomen and pelvis. *No evidence of nephrolithiasis or hydronephrosis. *Moderate colonic stool. Referred to [facility] from PCP for 3 weeks of bloody diarrhea and abdominal cramping. Pt endorses weight loss. Minimal relief with dicyclomine, cipro and budesonide. Hx of psoriatic arthritis and ankylosing spondylitis. On Humira but discontinuesa few months ago. Enbrel for 10 years. Stool 5.6.25; lactoferrin positive, enteric path negative, c.dif negative OV 5.20.25 Pt endorses loose stool for about 3 weeks. He is having up to 20 loose stools per day. This is waking up him out of his sleep. It is not post prandial. He endorses a 10-15 lbs weight loss over this time. Prior to this, he was having a daily formed stool with no GI symptoms. He has a family hx of UC and personal hx of autoimmune conditions including psoriatic arthritis and ankylosing spondylitis. He had a colonoscopy about 6 years due to blood in his stool but this was negative. [facility] Medical History History of steroid therapy Wears contact lenses Wears glasses Alcohol use Ankylosing spondylitis Psoriatic arthritis History of GI bleed Former smoker Home Medications ?Medication ?Instructions ?Recorded ?Last Taken ?Type amoxicillin 875 mg-potassium 875 mg PO Q12H #14 TABLET S 03/02/25 03/07/25 Rx clavulanate 125 mg tablet prednisone 20 mg tablet 20 mg PO BID 03/03/25 History Allergy/AdvReac Type Severity Reaction Status Date / Time No Known Allergies Allergy Verified 03/08/25 06:42 Surgical History History of colonoscopy History of rhinoplasty Social History household members: spouse housing: house Smoking Status: Former smoker ROS Constitutional Constitutional: Denies fatigue, fever(s), poor appetite, weight gain or weight loss Gastrointestinal Gastrointestinal: Denies belching, bloating, change in bowel habits, change in stool character, chewing difficulty, coffee ground emesis, constipation, cramping, diarrhea, dyspepsia, dysphagia, early satiety, excessive flatus, fecalincontinence, heartburn, hematemesis, hematochezia, hemorrhoids, loose stools, melena, nausea, odynophagia, rectal bleeding, tenesmus, vomiting or weight changes Vital Signs Vital Signs Vital Signs: 03/08/25 06:43 03/08/25 06:43 03/08/25 07:16 Temperature 97.8 F 97.8 F Temperature Source Temporal Pulse Rate 85 85 Respiratory Rate 17 17 Respiratory Pattern Normal Blood Pressure 128/90 H 128/90 H Blood Pressure Mean 102 Blood Pressure Source Monitor Blood Pressure Position Semi-Fowlers Blood Pressure Location Left Arm Pulse Ox 100 100 Oxygen Delivery Method Room Air Room Air Weight Weight: 108 lb 0.424 oz Body Mass Index (BMI) 15.5 Physical Exam Const alert, oriented x3, no apparent distress and healthy appearing General Appearance: cooperative GI normal to inspection, nondistended, normoactive bowel sounds, soft to palpation,non-tender and non-distended Percussion: normal to percussion Rectal Exam: deferred Assessment & Plan Assessment/Plan (1) Chronic diarrhea: (2) Blood in stool: (3) Abdominal pain: (4) Weight loss: (5) Diarrhea: PLAN: Assessment and Plan Assessment and Plan (1) Diarrhea: Status: Acute Plan: This is a 24 yo male pt here today for evaluation of diarrhea x3 weeks associated with weight loss and abdominal pain. Pt has a PMHx of psoriatic arthritis and ankylosing spondylitis and was on Humira but recently discontinueddue to INS issues. He endorses a family hx of UC. Work up thus fur with PCP has included stool testing which was negative for enteric paths and c.dif however lactoferrin was positive. He has been on Budesonide which has not provided relief. I will order calprotectin, ESR and CRP. He will be scheduled for colonoscopy as I have high suspicion for UC given autoimmune hx, family hx and symptoms. He may take Imodium in the meantime to control this symptoms. He has plan on restarting biologic therapy as soon as possible. If he does have UC my recommendation will also be for him to re start his biologic. -ESR, CRP and calprotectin -Colonoscopy -Consider re starting biologic therapy -f/u after procdure (2) Weight loss: Status: Acute (3) Abdominal pain: Status: Acute (4) Blood in stool: Status: Acute Orders: Orders Erythrocyte Sed Rate Today K92.1 - Melena, R10.9 - Unspecified abdominal pain, R19.7 - Diarrhea, unspecified, R63.4 - Abnormal weight loss CRP Today K92.1 - Melena, R10.9 - Unspecified abdominal pain, R19.7 - Diarrhea,unspecified, R63.4 - Abnormal weight loss Calprotectin, Stool Today K92.1 - Melena, R10.9 - Unspecified abdominal pain, R19.7 - Diarrhea, unspecified, R63.4 - Abnormal weight loss 03/08/25 0725 <Electronically signed by Blair Odell DO> Cosigner Signature (if applicable): CC: GIOVANI Dobbins; Blair Odell, ~ Signed [facility] Work Phone: Hospital course Narrative No data available for this section [facility] Hospital Discharge instructions No data available for this section [facility] Hospital Discharge instructions Additional Instructions CT scan no kidney stones. Labs urine negative. Continue Motrin 600 mg every 6 hours for pain as needed. Follow-up with your doctor.[facility] Work Phone: Hospital Discharge instructionsAmbulatory Orders* Nutrition Referral Location: None Selected * Rheumatology Location: None Selected [facility] Work Phone: Progress note No data available for this section [facility] Reason for referral (narrative)No reason for referral information availableW[facility] Work Phone: Summary Purpose Family History No Family History Records Found No data available for this section No data available for this section No Family History Records FoundNo Family History Records Found Advance Directives Advance Directive Response Recorded Date/ Time Living Will No January 19, 2025 4:50pm Do you have a Healthcare Power of Sheep Killer? No January 19, 2025 4:50pm Advance Directive Response Recorded Date/ Time Living Will No January 19, 2025 4:50pm Do you have a Healthcare Power of Sheep Killer? No January 19, 2025 4:50pm Do you have a Healthcare Power of Sheep Killer? No March 03, 2025 2:07pm Do you have a Healthcare Power of Sheep Killer? No March 02, 2025 4:03pm Chief Complaint and Reason for Visit Chief Complaint LEFT NASAL POLYP Chief Complaint Admit Date back pain January 19, 2025 4:1 2pm Chief Complaint Admit Date back pain January 19, 2025 4:1 2pm DIARRHEA ABDOMINAL PAIN February 28, 2025 8 :23am Reason for Visit Admit Date Abdominal pain February 28, 2025 8:23a m Blood in stool February 28, 2025 8:23a m Diarrhea February 28, 2025 8:23a m Weight loss February 28, 2025 8:23a m Chief Complaint Admit Date back pain January 19, 2025 4:1 2pm DIARRHEA ABDOMINAL PAIN February 28, 2025 8 :23am abd pain March 02, 2025 3:24p m Reason for Visit Admit Date Abdominal pain February 28, 2025 8:23a m Blood in stool February 28, 2025 8:23a m Diarrhea February 28, 2025 8:23a m Weight loss February 28, 2025 8:23a m Abdominal pain March 08, 2025 5:56a m Blood in stool March 08, 2025 5:56a m Diarrhea March 08, 2025 5:56a m Weight loss March 08, 2025 5:56a m Chronic diarrhea March 08, 2025 5:56a m Chief Complaint Admit Date back pain January 19, 2025 4:1 2pm DIARRHEA ABDOMINAL PAIN February 28, 2025 8 :23am abd pain March 02, 2025 3:24p m Test Result March 14, 2025 10:00 am INT LAB ORDERS March 15, 2025 12:42 pm Reason for Visit Admit Date Abdominal pain February 28, 2025 8:23a m Blood in stool February 28, 2025 8:23a m Diarrhea February 28, 2025 8:23a m Weight loss February 28, 2025 8:23a m Abdominal pain March 08, 2025 5:56a m Blood in stool March 08, 2025 5:56a m Diarrhea March 08, 2025 5:56a m Weight loss March 08, 2025 5:56a m Chronic diarrhea March 08, 2025 5:56a m Ulcerative colitis March 14, 2025 10:00 am Chief Complaint Admit Date back pain January 19, 2025 4:1 2pm DIARRHEA ABDOMINAL PAIN February 28, 2025 8 :23am abd pain March 02, 2025 3:24p m Test Result March 14, 2025 10:00 am INT LAB ORDERS March 15, 2025 12:42 pm 1 M FU March 22, 2025 8:29 am Reason for Visit Admit Date Abdominal pain February 28, 2025 8:23a m Blood in stool February 28, 2025 8:23a m Diarrhea February 28, 2025 8:23a m Weight loss February 28, 2025 8:23a m Abdominal pain March 08, 2025 5:56a m Blood in stool March 08, 2025 5:56a m Diarrhea March 08, 2025 5:56a m Weight loss March 08, 2025 5:56a m Chronic diarrhea March 08, 2025 5:56a m Ulcerative colitis March 14, 2025 10:00 am Ankylosing spondylitis March 22, 2025 8 :29am Psoriatic arthritis March 22, 2025 8:29 am Ulcerative colitis March 22, 2025 8:29 am Weight loss March 22, 2025 8:29 am Additional Source Comments (unrecognized sect ion and content) No Status Records FoundNo Status Records FoundNo Status Records Found INFORMATION SOURCE (unrecogn ized section and content) DATE CREATED AUTHOR 10/31/2019 [facility] DATE CREATED AUTHOR AUTHOR'S ORGANIZ ATION 12/27/2023 [facility] DATE CREATED AUTHOR AUTHOR'S ORGANIZ ATION 03/20/2025 [facility] Care Team (unrecognized sect ion and content) Care Team Personnel Name: PATRICIA ARCHER Position: P4 Advanced Practice Nurse Med Service: Active Provider Member Role: Primary Care Physician Address: Address: [address] [place] [address] Care Team Related Persons Name: MEL GROSSMAN Care Team Personnel Name: PATRICIA ARCHER Position: P4 Advanced Practice Nurse Member Role: Primary Care Physician Address: Address: [address] [place] [address] Care Team Related Persons Name: MEL BEAL Address: Home [address] [place] [address] Name: MEL BEAL Address: Home [address] [place] [address] Care Team Personnel Name: PATRICIA ARCHER Position: P4 Advanced Practice Nurse Member Role: Primary Care Physician Address: Address: [address] [place] [address] Name: CADEN PAIGE DO Position: ED Physician Member Role: ED Physician Address: Address: [address] [place] [address] [facility] [address] Care Team Related Persons Name: MEL BEAL Address: Home [address] [place] [address] Name: MEL BEAL Address: Home [address] [place] [address] Goals (unrecognized section and content) Goals may be documented in a n alternate section Patient Care team informatio n (unrecognized section and content) Team Status: Active Member Role Status Dates Patricia Archer CALL SPECIALIST, CALL SPECIALIST-C Primary Care Provider Active Team Status: Inactive Member Role Status Dates Patricia Archer CALL SPECIALIST, CALL SPECIALIST-C Primary Care Provider Active Start: January 19, 2025 End: January 19, 2025 Dr. Cal Powers , Emergency Provider Active Start : January 19, 2025 End: January 19, 2025 Team Status: Active Member Role Status Dates Evemeng Dobbins , CALL SPECIALIST-C Primary Care Provider Active Team Status: Inactive Member Role Status Dates Patricia Archer CALL SPECIALIST, CALL SPECIALIST-C Primary Care Provider Active Start: January 19, 2025 End: January 19, 2025 Dr. Cal Powers , Attending Provider Active Start : January 19, 2025 End: January 19, 2025 Dr. Cal Powers , Emergency Provider Active Start : January 19, 2025 End: January 19, 2025 Team Status: Inactive Member Role Status Dates Eve Shilpi , CALL SPECIALIST-C Primary Care Provider Active Start: February 13, 2025 End: February 13, 2025 Eve Dobbins , CALL SPECIALIST-C Attending Provider Active St art: February 13, 2025 End: February 13, 2025 Eve Dobbins , CALL SPECIALIST-C Referring Provider Active St art: February 13, 2025 End: February 13, 2025 Team Status: Active Member Role Status Dates Eve Shilpi , CALL SPECIALIST-C Primary Care Provider Active Start: February 14, 2025 Eve Dobbins , CALL SPECIALIST-C Attending Provider Active St art: February 14, 2025 Eve Dobbins , CALL SPECIALIST-C Referring Provider Active St art: February 14, 2025 Team Status: Inactive Member Role Status Dates Eve Shilpi , CALL SPECIALIST-C Primary Care Provider Active Start: February 14, 2025 End: February 14, 2025 Eve Dobbins , CALL SPECIALIST-C Attending Provider Active St art: February 14, 2025 End: February 14, 2025 Evemeng Dobbins , CALL SPECIALIST-C Referring Provider Active St art: February 14, 2025 End: February 14, 2025 Team Status: Inactive Member Role Status Dates Eve Shilpi , CALL SPECIALIST-C Primary Care Provider Active Start: February 28, 2025 End: February 28, 2025 Eve Dobbins , CALL SPECIALIST-C Referring Provider Active St art: February 28, 2025 End: February 28, 2025 LAM Meade Attending Provider Active Start: February 28, 2025 End: February 28, 2025 Team Status: Inactive Member Role Status Dates Eve Shilpi , CALL SPECIALIST-C Primary Care Provider Active Start: March 02, 2025 End: March 02, 2025 Dr. Zi Wilkins MD Attending Provider Active Sta rt: March 02, 2025 End: March 02, 2025 Dr. Zi Wilkins MD Emergency Provider Active Sta rt: March 02, 2025 End: March 02, 2025 Team Status: Inactive Member Role Status Dates Eve Dobbins CALL SPECIALIST-C Primary Care Provider Active Start: March 08, 2025 End: March 08, 2025 Eve Dobbins CALL SPECIALIST-C Referring Provider Active St art: March 08, 2025 End: March 08, 2025 Dr. Blair Odell , Attending Provider Active Start: March 08, 2025 End: March 08, 2025 Team Status: Active Member Role Status Dates Eve Dobbins CALL SPECIALIST-C Primary Care Provider Active Start: March 08, 2025 Eve Dobbins CALL SPECIALIST-C Referring Provider Active St art: March 08, 2025 Dr. Blair Odell DO Attending Provider Active Start: March 08, 2025 Dr. Blair Odell DO Other Provider Active St art: March 08, 2025 Team Status: Inactive Member Role Status Dates Eve Dobbins , CALL SPECIALIST-C Primary Care Provider Active Start: March 14, 2025 End: March 14, 2025 Eve Dobbins CALL SPECIALIST-C Referring Provider Active St art: March 14, 2025 End: March 14, 2025 LAM Meade Attending Provider Active Start: March 14, 2025 End: March 14, 2025 Team Status: Inactive Member Role Status Dates Eve Dobbins CALL SPECIALIST-C Primary Care Provider Active Start: March 15, 2025 End: March 15, 2025 LAM Meade Attending Provider Active Start: March 15, 2025 End: March 15, 2025 LAM Meade Referring Provider Active Start: March 15, 2025 End: March 15, 2025 Team Status: Active Member Role Status Dates Eve Dobbins CALL SPECIALIST-C Primary Care Provider Active Start: March 21, 2025 LAM Meade Attending Provider Active Start: March 21, 2025 LAM Meade Referring Provider Active Start: March 21, 2025 Team Status: Inactive Member Role Status Dates Eve Dobbins CALL SPECIALIST-C Primary Care Provider Active Start: March 22, 2025 End: March 22, 2025 GIOVANI Hayes Referring Provider Active St art: March 22, 2025 End: March 22, 2025 LAM Meade Attending Provider Active Start: March 22, 2025 End: March 22, 2025 FOR RECORDS PERTAINING TO PATIENTS WHO ARE OR HAVE BEEN ENROLLED IN A CHEMICAL DEPENDENCY/SUBSTANCEABUSE PROGRAM, SOME INFORMATION MAY BE OMITTED. This clinical summary was aggregated from multiple sources. Caution should be exercised in using it in the provision of clinical care. This summary normalizes information from multiple sources, and as a consequence, information in this document may materially change the coding, format and clinical context of patient data. In addition, data may be omitted in some cases. CLINICAL DECISIONS SHOULD BE BASED ON THE PRIMARY CLINICAL RECORDS. [employer] [facility]. provides no warranty or guarantee of the accuracy or completeness of information in this document.
== END | disposition home or self-care (01) ==
LOC: RAD 09:02
PROVIDERS: PCP Nurse Practitioner Family; Referring Provider Student in an Organized Health Care Education/Training Program; Visit Provider Student in an Organized Health Care Education/Training Program
DX: K51.90 Ulcerative colitis, unspecified, without complications (principal)
CPT/HCPCS: 74018

== ENCOUNTER → 2025-03-28 | Outpatient (CLI) | payer OTHER, SELFPAY ==
[2025-03-28 13:54] LABS: Absolute Lymphocyte Count 0.67 X10^3/uL (0.83-4.51); Absolute Neutrophil Count 19.9 X10^3/uL (2.0-7.7); Basophil# 0.03 X10^3/uL; Basophil% 0.1 % (0-1); Hematocrit 29.4 % (40-54); Hemoglobin 9.5 g/dL (13.0-16.5); Lymphocyte # 0.67 X10^3/ul (0.83-4.51); Lymphocyte % 3.1 % (19-41); Mean Corp Hgb Conc 32.3 g/dL (32-36); Mean Corpuscular Hgb 29.1 pg (27.0-32.0); Mean Corpuscular Volume 89.9 fL (80-94); Mean Platelet Vol. 8.5 fl (6.2-12.0); Monocyte# 0.51 X10^3/uL; Monocyte% 2.4 % (0-10); NRBC Flagged by Analyzer 0 % (0-5); Neutrophil % 92.8 % (47-70); Platelet Count 404 K/mm3 (150-450); RBC Distribution Width CV 15.9 % (11.6-14.6); RBC Distribution Width SD 52.6 fl (35.1-43.9); Red Blood Count 3.27 M/mm3 (4.6-6.2); White Blood Count 21.5 K/mm3 (4.4-11.0)
[2025-03-28 15:48] LABS: ALB/GLOB Ratio 1.6 RATIO (0.9-2.4); AST(SGOT) 15 U/L (<=37); Alanine Aminotransfer ALT/SGPT 33 U/L (<=46); Albumin, Serum 3.7 g/dL (3.5-5.0); Alkaline Phosphatase 89 U/L (40-129); Anion Gap 12 (5-15); BUN 27 mg/dL (4-19); BUN/Creat Ratio 44.7 RATIO (10-20); Calcium,Total 8.9 mg/dL (7.6-11.0); Carbon Dioxide 26.2 mmol/L (21.0-32.0); Chloride 99 mmol/L (98-108); EST Glomerular Filtration Rate 137 (>60); Globulin 2.4 g/dL (2.2-4.2); Glucose 122 mg/dL (70-99); Potassium 3.6 mmol/L (3.3-5.1); Sodium Level 138 mmol/L (133-145); Total Bilirubin 0.26 mg/dL (0.00-1.30)
== END | disposition home or self-care (01) ==
PROVIDERS: PCP Nurse Practitioner Family; Referring Provider Student in an Organized Health Care Education/Training Program; Visit Provider Student in an Organized Health Care Education/Training Program
DX: K51.90 Ulcerative colitis, unspecified, without complications (principal)
CPT/HCPCS: 36415; 80053; 85025

== ENCOUNTER → 2025-04-05 | Outpatient (CLI) | payer OTHER, SELFPAY ==
[2025-04-05 10:18] LABS: Basophil# 0.04 X10^3/uL; Eosinophil# 0.14 X10^3/uL; Hematocrit 21.6 % (40-54); Hemoglobin 6.9 g/dL (13.0-16.5); Mean Corp Hgb Conc 31.9 g/dL (32-36); Mean Corpuscular Hgb 29.7 pg (27.0-32.0); Mean Corpuscular Volume 93.1 fL (80-94); Mean Platelet Vol. 8.9 fl (6.2-12.0); Monocyte# 1.54 X10^3/uL; NRBC Flagged by Analyzer 0.2 % (0-5); POSITIVE COUNT YES; POSITIVE DIFFERENTIAL YES; POSITIVE MORPHOLOGY YES; Platelet Count 507 K/mm3 (150-450); RBC Distribution Width CV 16.9 % (11.6-14.6); Red Blood Count 2.32 M/mm3 (4.6-6.2); White Blood Count 17.6 K/mm3 (4.4-11.0)
[2025-04-05 10:21] LABS: Differential Indicated SCAN CRITERIA MET
[2025-04-05 11:41] LABS: ALB/GLOB Ratio 1.9 RATIO (0.9-2.4); AST(SGOT) 17 U/L (<=37); Alanine Aminotransfer ALT/SGPT 30 U/L (<=46); Albumin, Serum 3.6 g/dL (3.5-5.0); Alkaline Phosphatase 50 U/L (40-129); Anion Gap 10 (5-15); BUN 21 mg/dL (4-19); BUN/Creat Ratio 28.2 RATIO (10-20); Calcium,Total 9.1 mg/dL (7.6-11.0); Carbon Dioxide 25.8 mmol/L (21.0-32.0); Chloride 104 mmol/L (98-108); Creatinine, Serum 0.76 mg/dL (0.70-1.20); EST Glomerular Filtration Rate 127 (>60); Glucose 95 mg/dL (70-99); Potassium 4.5 mmol/L (3.3-5.1); Protein, Total 5.6 g/dL (5.9-8.4); Sodium Level 140 mmol/L (133-145); Total Bilirubin 0.21 mg/dL (0.00-1.30)
[2025-04-05 12:40] LABS: Scan Smear per Review Criteria MANUAL DIFF
[2025-04-05 12:41] LABS: Lymphocyte 18 % (19-41); Metamyelocyte 4 % (0-1); Monocyte 6 % (0-10); Myelocyte 1 % (0-0); Neutrophil-Segmented 71 % (47-70)
[2025-04-05 12:42] LABS: Absolute Lymphocyte Count 3.17 X10^3/uL (0.83-4.51); Absolute Neutrophil Count 12.5 X10^3/uL (2.0-7.7); Lymphocyte # 3.17 X10^3/ul (0.83-4.51)
[2025-04-05 12:44] LABS: Platelet Estimate MOD INC (ADEQ); Polychromasia 1+
[2025-04-05 12:45] LABS: Acanthocytes 1+
[2025-04-19 15:34] LABS: Pathologist Review Reviewed
== END | disposition home or self-care (01) ==
PROVIDERS: Student in an Organized Health Care Education/Training Program; PCP Nurse Practitioner Family; Referring Provider Nurse Practitioner Acute Care; Visit Provider Nurse Practitioner Acute Care
DX: K51.90 Ulcerative colitis, unspecified, without complications (principal)
CPT/HCPCS: 36415; 80053; 85025; 86850; 86900; 86901

== ENCOUNTER 2025-04-06 07:55 | Outpatient (CLI) | payer OTHER, SELFPAY ==
[2025-04-06 08:15] VITALS: BP 120/69; PULSE 87; RESP 16; TEMP 36.6; O2SAT 100; BMI 17.6
[2025-04-06 08:33] VITALS: BP 107/66; PULSE 87; RESP 16; TEMP 36.5
[2025-04-06 09:33] VITALS: BP 114/61; PULSE 75; RESP 16; TEMP 36.4
[2025-04-06 10:05] VITALS: BP 107/63; PULSE 69; RESP 14; TEMP 36.3
[2025-04-06 10:42] VITALS: BP 105/64; PULSE 73; RESP 16; TEMP 36.5
[2025-04-06 11:59] VITALS: BP 120/68; PULSE 87; RESP 16; TEMP 36.6; O2SAT 100
== END 2025-04-06 23:59 | disposition home or self-care (01) ==
LOC: MEDOUTP 07:55
PROVIDERS: PCP Nurse Practitioner Family; Referring Provider Student in an Organized Health Care Education/Training Program; Visit Provider Student in an Organized Health Care Education/Training Program
DX: D64.9 Anemia, unspecified (principal)
CPT/HCPCS: 36415; 36430; 86850; 86900; 86901; P9016; A4216

== ENCOUNTER 2025-05-25 09:52 | Outpatient (RCR) | payer OTHER, SELFPAY | END 2025-06-11 23:59 | LOC: NS 09:52 | PROVIDERS: PCP Nurse Practitioner Family; Referring Provider Student in an Organized Health Care Education/Training Program; Visit Provider Student in an Organized Health Care Education/Training Program | DX: Z71.3 Dietary counseling and surveillance (principal); K51.90 Ulcerative colitis, unspecified, without complications; R63.4 Abnormal weight loss | CPT/HCPCS: 97802 ==

== ENCOUNTER → 2025-06-09 | Outpatient (CLI) | payer OTHER, SELFPAY ==
[2025-06-09 17:53] LABS: Hematocrit 30.4 % (40-54); Hemoglobin 9.8 g/dL (13.0-16.5); Immature Granulocytes Count 0.040 X10^3/uL (0.0-0.0); Mean Corp Hgb Conc 32.2 g/dL (32-36); Mean Corpuscular Volume 80.4 fL (80-94); Mean Platelet Vol. 9.9 fl (6.2-12.0); NRBC Flagged by Analyzer 0 % (0-5); Platelet Count 450 K/mm3 (150-450); RBC Distribution Width CV 15.6 % (11.6-14.6); RBC Distribution Width SD 45.5 fl (35.1-43.9); Red Blood Count 3.78 M/mm3 (4.6-6.2); White Blood Count 7.1 K/mm3 (4.4-11.0)
[2025-06-09 18:29] LABS: AST(SGOT) 15 U/L (<=37); Alanine Aminotransfer ALT/SGPT 12 U/L (<=46); Albumin, Serum 4.6 g/dL (3.5-5.0); Alkaline Phosphatase 50 U/L (40-129); Anion Gap 13 (5-15); BUN 18 mg/dL (4-19); BUN/Creat Ratio 19.8 RATIO (10-20); CRP < 3.00 mg/L (0.0-3.0); Calcium,Total 9.8 mg/dL (7.6-11.0); Carbon Dioxide 22.9 mmol/L (21.0-32.0); Chloride 104 mmol/L (98-108); Globulin 2.5 g/dL (2.2-4.2); Glucose 95 mg/dL (70-99); Potassium 4.8 mmol/L (3.3-5.1)
== END | disposition home or self-care (01) ==
PROVIDERS: Internal Medicine Gastroenterology; PCP Nurse Practitioner Family; Referring Provider Student in an Organized Health Care Education/Training Program; Visit Provider Student in an Organized Health Care Education/Training Program
DX: L40.50 Arthropathic psoriasis, unspecified (principal); M45.9 Ankylosing spondylitis of unspecified sites in spine; K51.90 Ulcerative colitis, unspecified, without complications
CPT/HCPCS: 36415; 80053; 85025; 85652; 86140